=== PATIENT | male | born 1965 | race Caucasian/White ===

== ENCOUNTER 2018-12-26 20:06 | Emergency (ER) | payer MEDICAID, SELFPAY ==
--- NOTE | 2018-12-26 20:10 | ED.GENADUL_ITS ---
Discharge Plan Disposition Patient Disposition: HOME Condition: Good Discharge Details Chief Complaint: DentalOral Clinical Impression: Dental infection Primary Care Provider: Asad El ED Provider: Jose Rosas Meds and New Rx's Prescriptions: New amoxicillin 500 mg Capsule 500 mg PO TID Qty: 21 RF: 0 Continued Atorvastatin Calcium 10 MG tablet 10 mg PO DAILY RF: 0 ibuprofen 200 MG capsule 800 mg PO Q6H PRN RF: 0 prednisone [Deltasone] 20 MG tablet 40 mg PO DAILY RF: 0 Narcan 4 MG spray,non-aerosol 4 mg NS PRN Qty: 2 RF: 0 Metoprolol Succinate 50 MG TAB.ER.24H 50 mg PO DAILY RF: 0 methadone [Dolophine] 10 MG tablet 110 mg PO QID RF: 0 hydrochlorothiazide 25 MG tablet 25 mg PO DAILY RF: 0 amlodipine 2.5 MG tablet 2.5 mg PO DAILY RF: 0 propranolol [Inderal LA] 120 MG capsule,extended release 24 hr 240 mg PO DAILY RF: 0 Medical Marijuana PRN (Reason: Moderate Pain) RF: 0 Discharge Instructions Additional Instructions: Please follow-up with a dentist from the list we have provided to get definitive care for your teeth. Take amoxicillin 3 times a day for the next week. I am not sure your medication list is accurate. Please at least contact primary care to get an updated list and to review your medications. It would be helpful if you carried a card with your medication list and dosages. Return to emergency department if you develop inability to swallow, increased difficulty breathing, spiking fevers, facial pain and swelling. Referrals: Asad El [Primary Care Provider] - Medical Decision Making Patient with increasing dental pain over weeks to months. Percussion tenderness present over the lower incisors. Very poor dentition and gingival tissue. Will be referred out to dentistry and is given a list of area dentist. Will be started on amoxicillin 500 mg 3 times daily. He is on chronic pain medication. Return to ED for spiking fevers, increased difficulty breathing, inability to swallow, facial swelling. HPI General Mode of arrival: ambulatory . Date/Time Provider Initiated Documentation: 12/26/18 20:08 . Limitations to Documentation: no limitations . Information obtained by: patient . HPI Narrative: Patient presents to ED with lower dental pain. He has had increasing pain over the last few months. He has put off seeing a dentist. He is to the point where the pain is not tolerable and is concerned he has infection. He has not had fever. He has no difficulty breathing or swallowing. He has no facial swelling. Related Data Home Medications Medication Instructions Recorded Confirmed hydrochlorothiazide 25 mg PO DAILY 07/12/13 12/26/18 methadone [Dolophine] 110 mg PO QID 07/12/13 12/26/18 amlodipine 2.5 mg PO DAILY 12/08/13 12/26/18 propranolol [Inderal LA] 240 mg PO DAILY 12/08/13 12/26/18 Medical Marijuana PRN 12/14/13 04/12/14 Atorvastatin Calcium 10 mg PO DAILY tab-cap 02/12/18 12/26/18 Metoprolol Succinate 50 mg PO DAILY tab-cap 02/12/18 12/26/18 Narcan 4 mg NS PRN #2 spray 02/12/18 12/26/18 ibuprofen 800 mg PO Q6H PRN tab-cap 02/12/18 12/26/18 prednisone [Deltasone] 40 mg PO DAILY 02/12/18 12/26/18 amoxicillin 500 mg PO TID #21 cap 12/26/18 Previous Rx's Medication Instructions Recorded amoxicillin 500 mg PO TID #21 cap 12/26/18 Allergies Allergy/AdvReac Type Severity Reaction Status Date / Time lisinopril AdvReac Severe Swelling/Ed Unverified 12/26/18 20:25 [email or web address] Review of Systems Constitutional Denies chills and Denies fever(s) ENT Reports dental pain, Denies facial pain, Denies lip swelling, Denies neck pain, Denies throat swelling and Denies tongue swelling Musculoskeletal Denies neck pain Integumentary/Breasts Denies erythema Allergic/Immunologic Denies lip swelling, Denies throat swelling and Denies tongue swelling [facility] Medical History Chronic pain due to injury Essential hypertension History of peptic ulcer disease Surgical History Appendectomy Colonoscopy - MAC EGD - MAC Fracture, Open Treatment Rotator Cuff Repair Vasectomy Family History Other Diabetes Social History Smoking/Tobacco Use Status: Current every day Tobacco Type: cigarettes Alcohol Intake: current Alcohol Intake frequency: a few times a month Drug use: Occasionally Substance use type: marijuana Do you feel safe at home: Yes Do you feel safe in your relationship?: Yes Exam Const General: cooperative, comfortable and no acute distress Orientation: alert and oriented x3 HENMT Head: normocephalic and atraumatic Face and sinus: normal facial exam Mouth: lip normal and tongue normal Teeth and gingiva: gingiva abnormal (no discrete dental abscess) diffusely erythematous, tender and receding; without any purulent discharge, poor dentition and other (percussion tenderness front two lower incisors) Neck Neck: trachea midline, supple, no anterior neck swelling, lymphadenopathy (Shotty anterior adenopathy) and No submandibular swelling
[2018-12-26 20:11] VITALS: BP 125/79; PULSE 79; RESP 20; TEMP 37; O2SAT 98
[2018-12-26] MEDS: Amoxicillin 500 MG CAP PO (20:35)
== END 2018-12-26 20:42 | disposition home or self-care (01) ==
PROVIDERS: Emergency Provider Emergency Medicine; PCP Family Medicine
DX: K04.7 Periapical abscess without sinus (principal); I10 Essential (primary) hypertension; F17.210 Nicotine dependence, cigarettes, uncomplicated
CPT/HCPCS: 99283

== ENCOUNTER 2019-05-18 21:34 | Emergency (ER) | payer MEDICAID, SELFPAY ==
[2019-05-18 21:38] VITALS: PULSE 87; RESP 16; TEMP 37.2; O2SAT 96
[2019-05-18 21:45] VITALS: BP 123/93
--- NOTE | 2019-05-18 21:47 | ED.GENADUL_ITS ---
Discharge Plan Disposition Patient Disposition: HOME Discharge Details Chief Complaint: Orthopedic Primary Care Provider: Asad El ED Provider: Davidson Benjamin Home Meds and New Rx's Prescriptions: No Action Atorvastatin Calcium 10 MG tablet 10 mg PO DAILY RF: 0 ibuprofen 200 MG capsule 800 mg PO Q6H PRN RF: 0 prednisone [Deltasone] 20 MG tablet 40 mg PO DAILY RF: 0 Narcan 4 MG spray,non-aerosol 4 mg NS PRN Qty: 2 RF: 0 Metoprolol Succinate 50 MG TAB.ER.24H 50 mg PO DAILY RF: 0 methadone [Dolophine] 10 MG tablet 110 mg PO QID RF: 0 hydrochlorothiazide 25 MG tablet 25 mg PO DAILY RF: 0 amlodipine 2.5 MG tablet 2.5 mg PO DAILY RF: 0 propranolol [Inderal LA] 120 MG capsule,extended release 24 hr 240 mg PO DAILY RF: 0 Medical Marijuana PRN (Reason: Moderate Pain) RF: 0 amoxicillin 500 mg Capsule 500 mg PO TID Qty: 21 RF: 0 Medical Decision Making Patient presenting to the emergency department for chief complaint of right hand and forearm injury. Patient reports just prior to arrival he was upset due to an argument he had with his nephew and after his nephew left he punched a plywood wall. After striking this he noted hearing a pop in his hand along with pain and discomfort to the lateral hand and the forearm. Patient denies any other injury or trauma. Patient does report that he had had approximately 6 beers earlier in the evening. Patient is slightly intoxicated in appearance but is stable amatory and has no signs of airway distress or other concerning findings. Physical exam shows lateral ecchymosis and swelling to the fifth metacarpal along with tenderness to palpation of the third through fifth metacarpal. Patient has full range of motion of fingers, no rotation is noted of the digits, cap refill sensation and movement is otherwise appropriate to hand. Patient does have forearm tenderness as well. Plan to do radiological imaging of the hand and forearm to rule out acute fracture. Review of radiologist interpretation shows no acute fracture identified. There is some spurring at the distal radioulnar joint, better appreciated on the hand radiographs. If symptoms remain concerning, consider alternative imaging modalities. No acute fracture identified. Nondisplaced fifth metacarpal fractures can often be subtle on initial imaging. If symptoms persist, consider short-term followup imaging in 7 days or alternative imaging modalities. Given no acute fracture is noted patient placed in a universal wrist splint and given contact information to follow-up with orthopedics if not improving within the next 1 to 2 weeks. Return precautions were discussed along with icing the extremity and using [id number] pain medication as needed. After discussion of diagnosis and plan of care patient has no further needs, que stions, or concerns and states clear understanding to return to the emergency department for any worsening symptoms. HPI General Mode of arrival: ambulatory . Date/Time Provider Initiated Documentation: 05/18/19 21:36 . Limitations to Documentation: no limitations . Information obtained by: patient and RN notes reviewed . History of Present Illness 53 year old M presents to the emergency department with the chief complaint of Right hand injury, described as moderate, with intensity rated at 5. Quality is described as aching and sharp, and is localized to the right and upper extremity. Patient started experiencing this hour(s) (1) and it has been constant. Patient notes no other symptoms.. Patient did receive the following treatments prior to arrival, none Related Data Home Medications Medication Instructions Recorded Confirmed hydrochlorothiazide 25 mg PO DAILY 07/12/13 12/26/18 methadone [Dolophine] 110 mg PO QID 07/12/13 12/26/18 amlodipine 2.5 mg PO DAILY 12/08/13 12/26/18 propranolol [Inderal LA] 240 mg PO DAILY 12/08/13 12/26/18 Medical Marijuana PRN 12/14/13 04/12/14 Atorvastatin Calcium 10 mg PO DAILY tab-cap 02/12/18 12/26/18 Metoprolol Succinate 50 mg PO DAILY tab-cap 02/12/18 12/26/18 Narcan 4 mg NS PRN #2 spray 02/12/18 12/26/18 ibuprofen 800 mg PO Q6H PRN tab-cap 02/12/18 12/26/18 prednisone [Deltasone] 40 mg PO DAILY 02/12/18 12/26/18 amoxicillin 500 mg PO TID #21 cap 12/26/18 Previous Rx's Medication Instructions Recorded amoxicillin 500 mg PO TID #21 cap 12/26/18 Allergies Allergy/AdvReac Type Severity Reaction Status Date / Time lisinopril AdvReac Severe Swelling/Ed Unverified 12/26/18 20:25 [email or web address] General Stated Complaint: Orthopedic PEDRITO: 4 Review of Systems Cardiovascular Denies syncope Musculoskeletal Reports as per HPI, Denies numbness and Denies tingling Integumentary/Breasts Denies rash, Denies sores and Denies wounds Neurologic Denies syncope, Denies numbness and Denies tingling [facility] Medical History Chronic pain due to injury Essential hypertension History of peptic ulcer disease Surgical History Appendectomy Colonoscopy - MAC EGD - MAC Fracture, Open Treatment Rotator Cuff Repair Bilateral Vasectomy Family History Other Diabetes Social History Smoking/Tobacco Use Status: Current every day Tobacco Type: cigarettes Alcohol Intake: current Alcohol Intake frequency: 0-2 drinks per day Alcohol type: beer Drug use: Occasionally Substance use type: marijuana Do you feel safe at home: Yes Do you feel safe in your relationship?: Yes Exam Const General: cooperative, comfortable, no acute distress and intoxicated appearing Orientation: alert, awake and oriented x3 Resp Effort & Inspection: normal respiratory effort and able to speak in complete sentences Cardio Rate: regular rate Rhythm: regular rhythm Heart Sounds: S1 normal, S2 normal, no click, no gallops, no murmurs and no rubs Extrem Right upper extremity: elbow/forearm Details: tenderness Location: of the mid- shaft forearm; no abrasions and no lacerations, wrist Details: normal to inspection, normal ROM and normal vascular exam; no tenderness and hand Details: neuromotor exam normal, neurosensory exam normal, tendon exam normal, tenderness Location: of the dorsal hand Location: over the 3rd metacarpal, over the 4th metacarpal and over the 5th metacarpal, normal ROM of fingers and ecchymosis Location: of the dorsal hand Location: over the 5th metacarpal Course Vital Signs Temperature 37.2 C 05/18/19 21:38 Pulse 87 05/18/19 21:38 Respiratory Rate 16 05/18/19 21:38 Pulse Oximetry 96 05/18/19 21:38 Temperature 37.2 C 05/18/19 21:38 Temperature Source Skin 05/18/19 21:38 Pulse 87 05/18/19 21:38 Respiratory Rate 16 05/18/19 21:38 Respiratory Effort Non-Labored 05/18/19 21:41 Blood Pressure 123/93 H 05/18/19 21:45 Pulse Oximetry 96 05/18/19 21:38
--- NOTE | 2019-05-18 21:53 | NUR.NOTE ---
Nursing Note: pt ambulated to x-ray. steady gait noted.
--- NOTE | 2019-05-18 22:00 | DI.RAD_ITS ---
SYMPTOM/DIAGNOSIS: BLUNT TRAUMA, PAIN TO MID FOREARM AND IN FIFTH CARPAL RIGHT FOREARM: Two views. No acute fracture or dislocation is present. The soft tissues are unremarkable. IMPRESSION: No acute abnormality. RIGHT HAND: Four views. No acute fracture or dislocation is identified. No radiopaque foreign bodies are seen in the soft tissues. IMPRESSION: No acute fracture or dislocation. Follow up as clinically appropriate.
--- NOTE | 2019-05-18 22:20 | DI.VRAD_ITS ---
EXAM: XR Right Forearm EXAM DATE/TIME: 05/18/2019 9:47 PM CLINICAL HISTORY: 53 years old, male; Lower or forearm and hand; Right; Patient HX: Pain to mid forearm TECHNIQUE: Imaging protocol: XR Right forearm. Views: 2 views. COMPARISON: Right hand films from the same date. FINDINGS: Bones/joints: No acute fracture identified. There is some spurring at the distal radioulnar joint, better appreciated on the hand radiographs. Soft tissues: No unusual soft tissue calcifications. IMPRESSION: 1. No acute fracture identified. There is some spurring at the distal radioulnar joint, better appreciated on the hand radiographs. If symptoms remain concerning, consider alternative imaging modalities. Dictated and Authenticated by: Darline Adorno MD. Ordering:SUSAN Cedeño MD
--- NOTE | 2019-05-18 22:23 | DI.VRAD_ITS ---
EXAM: XR Right Hand EXAM DATE/TIME: 05/18/2019 9:47 PM CLINICAL HISTORY: 53 years old, male; Injury or trauma; Initial encounter; Blunt trauma (contusions or hematomas; Hand; Right; Injury date: 05/18/19; Injury details: Pain fifth carpal after punching hardwood TECHNIQUE: Imaging protocol: XR Right hand. Views: 3 or more views. COMPARISON: No relevant prior studies available. FINDINGS: Bones/joints: No acute fracture identified. There is some spurring at the distal radioulnar joint. Soft tissues: No unusual soft tissue calcifications. IMPRESSION: 1. No acute fracture identified. Nondisplaced fifth metacarpal fractures can often be subtle on initial imaging. If symptoms persist, consider short-term followup imaging in 7 days or alternative imaging modalities. 2. Other findings/details as above. Dictated and Authenticated by: Darline Adorno MD. Ordering:SUSAN Cedeño MD
[2019-05-18 22:30] VITALS: BP 108/70; PULSE 72; RESP 16; O2SAT 98
--- NOTE | 2019-05-18 22:36 | NUR.NOTE ---
Nursing Note: RCT to transport patient home.
== END 2019-05-18 22:33 | disposition home or self-care (01) ==
PROVIDERS: Emergency Provider Nurse Practitioner Family; PCP Family Medicine
DX: S60.221A Contusion of right hand, initial encounter (principal); M79.631 Pain in right forearm; W22.01XA Walked into wall, initial encounter; I10 Essential (primary) hypertension
CPT/HCPCS: 29125; 99284; 73090; 73130; 99283; L3908

== ENCOUNTER 2021-04-03 10:38 | Emergency (ER) | payer MEDICAID, SELFPAY ==
[2021-04-03 10:45] VITALS: BP 126/78; PULSE 90; RESP 20; O2SAT 98
== END 2021-04-03 11:10 ==
LOC: ER 20:18
PROVIDERS: PCP Family Medicine
DX: Z53.21 Procedure and treatment not carried out due to patient leaving prior to being seen by health care provider (principal)

== ENCOUNTER 2021-04-04 08:57 | Emergency (ER) | payer MEDICAID, SELFPAY ==
[2021-04-04 09:04] VITALS: BP 143/83; PULSE 89; RESP 18; TEMP 36.3; O2SAT 96
--- NOTE | 2021-04-04 09:15 | RT.EKG_ITS ---
APPROVED REPORT Exam: Resting ECG Reason for Exam: shortness of breath Patient Location: E HR:75 bpm ECG Measurements Heart Rate 75 AXIS MD 230 P 66 QRSd 93 QRS 12 QT 387 T 34 QTc 432 Conclusion Sinus rhythm...normal P axis, V-rate 60- 99 Prolonged MD interval...MD >210, V-rate 50- 90 Low voltage, extremity leads...all extremity leads <0.5mV Sinus. No STEMI. I have reviewed and interpreted ECG and agree with software generated interpretation.
[2021-04-04] MEDS: Albuterol/Ipratropium 3 ML UPD VIAL UPD (09:37)
[2021-04-04] MEDS: Normal Saline 1,000 ML 1000 ML IV (09:37)
[2021-04-04 09:38] LABS: Abs Immature Grans 0.04 10^3/uL (0.0-0.06); Absolute Basophil Count 0.09 10^3/uL (0.0-0.2); Absolute Eosinophil Count 0.15 10^3/uL (0.0-0.7); Absolute Lymphocyte Count 0.95 10^3/uL (1.2-3.4); Absolute Monocyte Count 0.73 10^3/uL (0.1-0.8); Basophils % 1.1; Eosinophils % 1.8; HGB 15.3 g/dL (13.5-17.5); Immature Grans % 0.5; Lymphocytes % 11.4; MCH 31.2 pg (27.0-33.0); MCV 91.6 fL (80-95); MPV 9.6 fL (8.0-11.0); Monocytes % 8.7; Neutrophils % 76.5; Nucleated RBC 0 %; Platelet Count 194 10^3/uL (130-400); RBC 4.91 10^6/uL (4.36-5.78); RDW 12.3 % (11.8-14.1); RDW-SD 41.3 fL; WBC 8.36 10^3/uL (4.4-10.8)
[2021-04-04 10:01] LABS: ALT 112 U/L (16-63); AST 128 U/L (15-37); Albumin 3.9 g/dL (3.4-5.0); Alkaline Phosphatase 104 U/L (46-116); BUN 4 mg/dL (7-18); Bilirubin, Total 0.6 mg/dL (0.2-1.0); CREATININE 0.9 mg/dL (0.70-1.30); Calcium 8.9 mg/dL (8.5-10.1); Chloride 95 mmol/L (98-107); Glucose 318 mg/dL (74-106); Lipase 125 U/L (73-393); NT-proBNP 59 pg/mL (<300); Sodium 133 mmol/L (136-145); Total Protein 7.9 g/dL (6.4-8.2)
[2021-04-04 10:02] LABS: Troponin I < 0.05 ng/mL (<0.06)
[2021-04-04] MEDS: Normal Saline - Diluent 50 ML VIAL IV (10:25)
[2021-04-04] MEDS: Omnipaque 350 MG/ML 50 ML BTL IJ (10:43)
--- NOTE | 2021-04-04 10:43 | ED.GENADUL_ITS ---
Discharge Plan Disposition Patient Disposition: HOME Condition: Serious Discharge Details Clinical Impression: Diabetes, Lymphadenopathy Primary Care Provider: Asad El ED Provider: Laila Hernández Home Meds and New Rx's Prescriptions: New Combivent Respimat 20-100 mcg/actuation mist 1 puff inhalation Q6H Qty: 4 RF: 0 metformin 500 mg tablet extended release 24hr 500 mg PO BID Qty: 30 RF: 0 Continued Atorvastatin Calcium 10 MG tablet 10 mg PO DAILY RF: 0 Narcan 4 MG spray,non-aerosol 4 mg NS PRN Qty: 2 RF: 0 metoprolol succinate 50 mg tablet extended release 24 hr 50 mg PO DAILY RF: 0 methadone 10 mg tablet 10 mg PO QID RF: 0 amlodipine 10 mg tablet 10 mg PO DAILY RF: 0 losartan 25 mg tablet 25 mg PO DAILY RF: 0 hydrochlorothiazide 25 mg tablet 25 mg PO DAILY RF: 0 albuterol sulfate [ProAir HFA] 90 mcg/actuation HFA aerosol inhaler 2 inh INHALATION QID PRNRF: 0 Discharge Instructions Instructions: COPD (Chronic Obstructive Pulmonary Disease) (ED), Diabetes and Nutrition (ED) Additional Instructions: Please take your Metformin in 48 hours begin this medication Lymphoma you will need to follow-up with your primary care physician tomorrow, it is essential that you call them as you will need very close outpatient follow-up and likely biopsy to determine what is causing your lymph nodes to be enlarged It also looks like your diabetes has progressed, I have prescribed Metformin, this will likely give you some diarrhea, do not be alarmed You are leaving prior to me speaking with your primary care physician and possibly oncology for close outpatient follow-up, I will attempt to call you later once I have spoken with your doctor and need contact with the appropriate resources Please return immediately should you have new or worsening complaints Please watch your diet and the sugar content in your foods as this can increase your blood sugar I have prescribed Combivent and replacement of your albuterol inhaler, you may use this for shortness of breath I encourage you to talk to your doctor regarding your worsening shortness of breath, you may need to go on a steroid inhaler Medical Decision Making Patient is alert and oriented, blood glucose is elevated without obvious evidence of diabetic ketoacidosis although patient does have a gap of 18 His electrolytes are stable He does have elevated LFTs, he did not grossly changed from prior, his lipase was within normal limits, there is no leukocytosis CT neck, chest, abdomen, pelvis ordered given exam and reported complaints and there is no obvious finding in the neck HPI patient results, this was discussed with Dr. Hayes, radiologist He also reviewed patient's CT abdomen and pelvis. Patient does have some stranding around the gallbladder without obvious cholecystitis Generalized retroperitoneal lymphadenopathy, concerning for lymphoma per radiology, I discussed these findings with the patient, he is refusing to stay for surgical consultation or to wait for his PCP to call back, I did call Dr. El, patient's PCP and he has been made aware regarding all of these findings, he asked that I order an LDH and states that he will get patient in for an acute visit, patient is aware regarding the severity of his presentation He is leaving prior to discussion with his primary care physician and surgical consultation HPI General Mode of arrival: ambulatory . Date/Time Provider Initiated Documentation: 04/04/21 08:59 . Limitations to Documentation: no limitations . Information obtained by: patient . HPI Narrative: This 55-year-old gentleman with history of chronic pain, hypertension, hyperlipidemia presents with report of weight loss, night sweats, lymph nodes that are enlarged with possible mass at right neck. He denies any chest pain or shortness of breath at this time. He states he has been getting short of breath with exertion which has been going on for the past year. He maintains continual tobacco use. He denies any calf pain or swelling. He denies prior history of coagulopathy. He denies any nausea or vomiting. He denies prior history of similar symptoms in the past. He states the symptoms have been going on for approximately 3 months but he has not talked to his doctor about them. He is unsure as to how much weight loss. He states his pants are just loose for him. He denies urinary symptoms. He denies polyuria, polydipsia, polyphagia. He states he has trouble drinking secondary to discomfort in his throat. Related Data Home Medications Medication Instructions Recorded Confirmed Atorvastatin Calcium 10 mg PO DAILY tab-cap 02/12/18 04/04/21 Narcan 4 mg NS PRN #2 spray 02/12/18 04/04/21 albuterol sulfate [ProAir HFA] 2 inh INHALATION QID PRN 04/04/21 04/04/21 amlodipine 10 mg PO DAILY 04/04/21 04/04/21 hydrochlorothiazide 25 mg PO DAILY 04/04/21 04/04/21 ipratropium-albuterol [Combivent 1 puff INHALATION Q6H #4 g 04/04/21 Respimat] losartan 25 mg PO DAILY 04/04/21 04/04/21 metformin 500 mg PO BID #30 tab 04/04/21 methadone 10 mg PO QID 04/04/21 04/04/21 metoprolol succinate 50 mg PO DAILY 04/04/21 04/04/21 Previous Rx's Medication Instructions Recorded ipratropium-albuterol [Combivent 1 puff INHALATION Q6H #4 g 04/04/21 Respimat] metformin 500 mg PO BID #30 tab 04/04/21 Allergies Allergy/AdvReac Type Severity Reaction Status Date / Time lisinopril AdvReac Severe Swelling/Ed Unverified 04/04/21 09:07 [email or web address] General Stated Complaint: GenMedical PEDRITO: 3 Review of Systems All systems reviewed & are unremarkable except as noted in HPI and below PFSH Medical History (Updated 04/04/21 @ 11:50 by RAYMUNDO Linares) Chronic pain due to injury Essential hypertension History of peptic ulcer disease Surgical History Appendectomy Colonoscopy - MAC EGD - MAC Fracture, Open Treatment Rotator Cuff Repair Bilateral Vasectomy Family History Other Diabetes Social History Smoking/Tobacco Use Status: Current every day Tobacco Type: cigarettes Smoking risk assessment performed?: Yes Alcohol Intake: current Alcohol Intake frequency: 0-2 drinks per day Alcohol type: beer Drug use: Occasionally Substance use type: marijuana Do you feel safe at home: Yes Do you feel safe in your relationship?: Yes Exam Const General: cooperative and no acute distress HENMT Mouth: oral mucosae normal Eyes Pupils: PERRL Neck Other: submandibular lymphadenopathy, right, no drooling Resp Effort & Inspection: normal respiratory effort Cardio Rate: regular rate Rhythm: regular rhythm GI Other: Lower abdominal tenderness to palpation, no rebound or guarding, no right upper quadrant tenderness Skin General skin exam: no rashes or lesions noted Neuro General: patient alert Extrem Other: No peripheral edema or tenderness Neurovascularly intact Course Vital Signs Vital signs: Vital Signs Temperature 36.3 C L 04/04/21 09:04 Pulse 89 04/04/21 09:04 Respiratory Rate 18 04/04/21 09:04 Blood Pressure 143/83 H 04/04/21 09:04 Pulse Oximetry 96 04/04/21 09:04 Temperature 36.3 C L 04/04/21 09:04 Temperature Source Skin 04/04/21 09:04 Pulse 89 04/04/21 09:04 Respiratory Rate 18 04/04/21 09:04 Respiratory Effort Non-Labored 04/04/21 09:56 Blood Pressure 143/83 H 04/04/21 09:04 Blood Pressure Position Sitting 04/04/21 09:04 Pulse Oximetry 96 04/04/21 09:04 Oxygen Delivery Method Room Air 04/04/21 09:04 Oxygen Flow Rate 0 04/04/21 09:04 Pain Level 3 04/04/21 09:04 Comment 04/04/21 09:04 Lab/Test Results Lab/Test Results: Laboratory Tests Range/Units 04/04/21 04/04/21 04/04/21 09:17 09:30 09:30 WBC (4.4-10.8) 10^3/uL 8.36 RBC (4.36-5.78) 10^6/uL 4.91 Hgb (13.5-17.5) g/dL 15.3 Hct (40.0-50.0) % 45.0 MCV (80-95) fL 91.6 MCH (27.0-33.0) pg 31.2 MCHC (32.0-36.0) % 34.0 RDW (11.8-14.1) % 12.3 Plt Count (130-400) 10^3/uL 194 MPV (8.0-11.0) fL 9.6 Immature Gran % 0.5 Neutrophils % 76.5 Lymphocytes % 11.4 Monocytes % 8.7 Eosinophils % 1.8 Basophils % 1.1 Nucleated RBC % % 0 Absolute Neutrophils (1.2-6.7) 10^3/uL 6.40 Absolute Lymphocytes (1.2-3.4) 10^3/uL 0.95 L Absolute Monocytes (0.1-0.8) 10^3/uL 0.73 Absolute Eosinophils (0.0-0.7) 10^3/uL 0.15 Absolute Basophils (0.0-0.2) 10^3/uL 0.09 Sodium Cancelled 133 L Potassium Cancelled 4.0 Chloride Cancelled 95 L Carbon Dioxide Cancelled 22.0 Anion Gap Cancelled 16.0 H BUN Cancelled 4 L Creatinine Cancelled 0.9 Estimated GFR/1.73 m2 Cancelled >= 60.00 Glucose Cancelled 318 H Calcium Cancelled 8.9 Total Bilirubin Cancelled 0.6 AST Cancelled 128 H ALT Cancelled 112 H Alkaline Phosphatase Cancelled 104 Troponin I (<0.06) ng/mL < 0.05 NT-Pro-B Natriuret Pep (<300) pg/mL 59 Total Protein Cancelled 7.9 Albumin Cancelled 3.9 Lipase Cancelled 125
--- NOTE | 2021-04-04 10:44 | DI.CT_ITS ---
Exam(s) CT NECK CHEST ABD PEL W EXAM: CT NECK CHEST ABD PEL W CLINICAL HISTORY: shortness of breath, diffuse abdominal pain, lump TECHNIQUE: COMPARISON: CT ABD PELVIS WITH CONTRAST from 06/23/2017 FINDINGS: CT SOFT TISSUES NECK WITH IV CONTRAST: Tissues of the nasopharynx are symmetrical. The uvula is midline calcifications in the both size the oropharynx-tonsilliths noted. Hypopharynx appears unremarkable. Valleculae and epiglottis unremark able. Aryepiglottic folds appear unremarkable. There is no obvious mass at the level of the vocal c ords and subglottic airway. Thyroid gland appears unremarkable. Normal size and no obvious nodules in either lobe. Parotid and submandibular glands appear unremarkable. No masses nor calcifications. Lymph nodes: There is no significant lymphadenopathy on either side of the neck. Also no supraclavic ular adenopathy evident. Incidentally noted is partially included evidence of right orbital blowout repair surgery hardware. Medial wall of right orbit also reflects prior injury. Vascular: There is calcified plaque at both carotid bifurcations. There does not appear to be a crit ical stenosis on either side at this level. Vertebral arteries are poorly opacified on this study an d difficult to evaluate. There is no thrombosis of the internal jugular veins. CT CHEST WITH IV CONTRAST: LUNGS: Some emphysematous bullae are noted posteriorly over the lower lobes. No confluent infiltrate s nor pleural effusions. There are no ominous pulmonary nodules. There are no significant focal fin dings in the trachea and mainstem bronchi. There is no bronchiectasis. Mediastinum: There is no hilar nor anterior mediastinal adenopathy. Slightly enlarged lymph nodes in the subcarinal region are noted. There is no axillary adenopathy nor significant supraclavicular ad enopathy. Visualized thyroid unremarkable. Cardiac: Heart size is normal. There is no pericardial effusion. Caliber of the thoracic aorta is w ithin normal limits. Coronary artery calcification is noted. Osseous: No fractures. No significant osseous lesions. CT ABDOMEN PELVIS WITH IV CONTRAST: The liver is hypodense implying steatosis. There are no discrete focal hepatic lesions identified. No dilatation of intrahepatic ducts. Tiny density in the gallbladder lumen measuring 2 millimeters p ossibly a calculus. No evidence of acute cholecystitis. However, there appears to be some streaking around this CBD and this CBD appears dilated to diameter of 1.4 cm. There is no obvious calculus in the lower CBD. CBD diameter at level the pancreatic head is upper normal-7 millimeters. There are no significant focal findings in the pancreas. Uncinate process retains normal triangular configurat ion. The pancreatic duct is not dilated. The spleen size is normal. No splenic lesions. The splen ic and portal veins are patent. There are no significant adrenal masses. No significant focal findi ngs in the kidneys. No calculi. No hydronephrosis nor hydroureter. The urinary bladder is distende d. There are no obvious masses nor calculi in the urinary bladder lumen. Abdominal aorta is not enlarged. There are multiple slightly prominent retroperitoneal and pre aorti c lymph nodes noted, the largest of these measuring 11 millimeters. There is no adenopathy around th e aortic bifurcation nor along the iliac chains. Shoddy lymph nodes are noted in both inguinal regio ns. Anterior abdominal wall reveals no evidence of significant hernia. There is also no evidence of ingu inal hernia. In the pelvis there are no calculi ureterovesical junctions. Urinary bladder is distended but otherw ise unremarkable. Prostate gland size is normal. Seminal vesicles unremarkable. No free fluid in t he pelvis. The appendix is difficult to identify as a separate structure here.. There is no obvious acute appendicitis. There is no evidence of acute sigmoid diverticulitis. I ileus appearing distal small bowel loops but without gross distention nor free fluid. No mesenteric adenopathy at this lev el. Osseous: No significant osseous lesions evident. IMPRESSION: 1. No significant findings in the neck 2. There are slightly enlarged lymph nodes in the subcarinal region. No other significant intra tho racic findings. No pleural effusions. 3. Hepatic steatosis. No discrete focal hepatic lesions. 4. Cholelithiasis. There is some streaking in the fat around the gallbladder and CBD and the CBD ap pears slightly prominent but without obvious radiopaque calculus nor obvious mass therein. Pancreati c duct is not dilated. Recommend ultrasound. 5. There are multiple enlarged retroperitoneal lymph nodes. Also slightly prominent pre aortic lymp h nodes. Possible lymphoma. There is no intrapelvic adenopathy. 6. Urinary bladder is distended. No other obvious abnormality of the urinary bladder evident on thi s noninfused study. Prostate gland is not enlarged. Findings discussed by phone with ER provider following completion of the study
[2021-04-04 11:11] VITALS: BP 129/68; PULSE 77; RESP 18; TEMP 36.4; O2SAT 97
[2021-04-04 13:08] LABS: LDH 173 U/L (85-227)
== END 2021-04-04 12:03 | disposition home or self-care (01) ==
PROVIDERS: Emergency Provider Physician Assistant; PCP Family Medicine
DX: R59.0 Localized enlarged lymph nodes (principal); E11.9 Type 2 diabetes mellitus without complications
CPT/HCPCS: 70491; 74177; 80053; 83690; 93005; 94640; 96360; 99284; 71260; 83615; 83880; 84484; 85025; 93010; J7620; Q9967

== ENCOUNTER 2021-04-10 10:49 | Outpatient (REF) | payer MEDICAID, SELFPAY ==
[2021-04-10 11:22] LABS: Source Nasal/Nares
[2021-04-10 13:30] LABS: C Diff PCR Negative (Negative)
[2021-04-10 16:11] LABS: COVID-19 PCR Negative (Negative)
[2021-04-11 10:32] LABS: Campylobacter PCR Negative (Negative); Salmonella PCR Negative (Negative); Shiga Toxin PCR Negative (Negative); Shigella/Enteroinvasive Ecoli Negative (Negative)
== END 2021-04-10 10:50 | disposition home or self-care (01) ==
LOC: LBN 10:49
PROVIDERS: Family Medicine; PCP Family Medicine; Visit Provider Neuromusculoskeletal Medicine & OMM
DX: R19.7 Diarrhea, unspecified (principal); R13.12 Dysphagia, oropharyngeal phase; R59.9 Enlarged lymph nodes, unspecified; Z20.822 Contact with and (suspected) exposure to COVID-19
CPT/HCPCS: 87493; 87505; 87635; 82272; 87177

== ENCOUNTER 2021-04-11 13:49 | Outpatient (CLI) | payer MEDICAID, SELFPAY ==
--- NOTE | 2021-04-11 | DI.RAD_ITS ---
Exam(s) RF MODIFIED SPEECH BA SWALLOW TECHNIQUE: Modified barium swallow was performed in conjunction with speech pathology. CONTRAST MATERIAL: Oral barium Oral water soluble contrast was administered. COMPARISON: No exams were available for comparison FINDINGS: Fluoroscopy was provided by the radiologist was present in the fluoroscopy suite for the entire proce dure. Procedure was performed by the speech therapist. Please refer to the speech therapist's report Was no aspiration on the study evident. The esophagus is not distended. IMPRESSION: No evidence of aspiration. See separate speech therapist report. RADIATION DOSE DELIVERED: stephanie Llanes= mGy
--- NOTE | 2021-04-11 13:47 | ST.MBS_ITS ---
Date of Service Date of service: 04/11/21 Time of Service: 14:00 Modified Barium Swallow Study Findings: Clinical Swallow Evaluation & Videofluoroscopic Swallowing Evaluation / Modified Barium Swallow Study (VFSE/MBSS) Speech Language Pathology Report Referring Provider: Dr Jose Ma HPI: Patient is a 55-year old male referred for CSE and VFSE/MBSS given recent onset of swallowing difficulties. PMHx: COPD history of chronic pain, hypertension, hyperlipidemia recent lymphadenopathy with weight loss, night sweats dyspnea upon exertion, dysphagia with thin liquids Previous Imaging: N/A Predisposing dysphagia risk factors: COPD Clinical signs of possible chronic dysphagia: cough with thin liquids, weight loss Precipitating dysphagia risk factors / triggering event: recent onset overt s/sx aspiration, lymphadenopathy SUBJECTIVE: Pt reports the following today: has a history of a 'herniated esophagus', has a heck of a hard time getting things down (pills and solids), sometimes liqu ids; also reports that he has a hard time after lying down, has a hard time breathing due to phlegm; reports having to swallow multiple times to get things down EAT-10: 32 (abnormal) PILL-5: 3 (Pills stick in throat) Cranial nerve exam / Oral Motor: CN V: facial sensation intact to light touch labial protrusion symmetrical labial coordination/ROM WFL Jaw excursion/lateralization intact mastication intact lingual/labial sensation intact CN VII: lateral sulcus residue absent anterior spillage not observed salivation intact CN IX/X: palatal elevation -symmetrical Vocal Quality -WFL taste -WFL per report onset of swallow - delayed (see below) pharyngeal residue -present nasopharyngeal regurgitation -none CN XII: bolus preparation/manipulation/control -WFL AP transit -WFL lingual protrusion symmetrical lingual coordination/ROM WFL lingual residue present, trace amount cleared with secondary swallow Dentition/Oral Structures/Hygiene: oral hygiene appears poor, reports having pulled own teeth recently, had last seen Dentist 5-6 years ago; currently denies oral pain and/or loose dentition Language: verbal expression/fluency, naming, repetition, and auditory compreh ension WFL Hearing: WFL Mental Status: AAOx3, recall of current events intact; highly anxious Speech: WFL Laryngeal function exam: Secretions: WFL Vocal quality: WFL MPT: DNT S/Z ratio: DNT Pitch range: WFL Cough: (volitional) perceptually WFL OBJECTIVE: Videofluoroscopic Swallow Evaluation (VFSE/MBSS) was conducted in the lateral and [id number] projections by Speech-Language Pathologist, in collaboration with Radiologist, to evaluate oropharyngeal swallow function. Anatomic view under fluoroscopy: noted prominence inferior to epiglottis during swallow tasks (see below) Standard [place] coin (watson) visible along posterior cervical spine, used for calibration+measurement during analysis PO barium contrast trials: Oral barium water soluble contrast was administered as follows: IDDSI Level 0 Varibar thin liquid (40% w/v) IDDSI Level 2 Varibar nectar thick/mildly thick liquid (40% w/v) IDDSI Level 3 Varibar thin honey/liquidised/moderately-thick (40% w/v) IDDSI Level 4 Varibar pudding/pureed/extremely thick (40% w/v) IDDSI Level 7 Regular Solid: 1/2 afia cracker coated in 3 mL Varibar pudding; 13 mm barium tablet PHYSIOLOGIC FINDINGS Oral Phase 1 Lip Closure: 0-No labial escape 2 Tongue Control: 0- Cohesive bolus between tongue to palatal seal 3 Bolus Preparation/Mastication: 1- Slowed/prolonged chewing/mashing with complete recollection 4 Bolus Transport/Lingual Motion: 0- Brisk tongue motion 5 Oral residue: 1- Trace residue lining oral structures Location: palate, tongue 6 Initiation of pharyngeal swallow: 3- Bolus head in pyriform sinus Pharyngeal Phase 7 Velar Elevation: 1- Trace column of contrast or air between soft palate and pharyngeal wall 8 Laryngeal Elevation: 2- Minimal superior movement of thyroid cartilage with minimal approximation of arytenoids to epiglottic petiole 9 Anterior Hyoid Excursion: 1- Partial anterior movement 10 Epiglottic Movement: 1- Minimal-Partial inversion 11 Laryngeal Vestibule Closure: 1- Incomplete; narrow column of air/contrast in laryngeal vestibule Penetration occurs during initial swallow onset from current bolus 12 Pharyngeal Stripping Wave: 1- Present; diminished 13 Pharyngeal Contraction: 0- Complete 14 PES/UES Openin- Partial distension and partial duration; partial obstruction of flow 15 Tongue Base Retraction: 1- Trace column of contrast between tongue base and posterior pharyngeal wall 16 Pharyngeal residue: 2- Collection of residue within or on pharyngeal structures Location: Tongue base, Pyriform sinuses, Aryepiglottic folds Lyons Pharyngeal Residue Severity Rating Scale (YPRS) (John et al, 2015) Vallecula Residue Severity II Trace 1-5% Trace coating of the mucosa Pyriform Sinus Residue Severity III Mild 5-25% Up wall to quarter full Esophageal Phase 17 Esophageal Clearance Upright Position: 2- Esophageal retention with retrograde flow below pharyngoesophageal segment/(PES/UES) NOTE: This study was performed for interpretation only of the oropharyngeal and pharyngoesophageal domains of swallowing. It is not intended to diagnose any other radiologic abnormalities or substitute for a formal esophagram study. Overall 8-Point Penetration-Aspiration Scale (PAS) (Floridalmak, et al, 1996) 1 - No material enters the airway. 2 - Material enters the airway, remains above the vocal folds, and is ejected from the airway. 3 - Material enters the airway, remains above the vocal folds, and is not ejected from the airway; visible residue remains 4 - Material enters the airway, contacts the vocal folds, and is ejected from the airway. 5 - Material enters the airway, contacts the vocal folds, and is not ejected from the airway. 6 - Material enters the airway, passes below the vocal folds, and is ejected into the larynx or out of the airway. 7 - Material enters the airway, passes below the vocal folds, and is not ejected from the trachea despite effort. 8 - Material enters the airway, passes below the vocal folds, and no effort is made to eject. Clinical Indicator(s) of Prandial/Postprandial Aspiration: N/A DIGEST Scale Rating (O'Jacques, et al, 1999) DIGEST Score: Safety Grade 1 / Efficiency Grade 1 = 1 - Overall Mild Pharyngeal Impairment (0=No Impairment, 1=Mild, 2=Moderate, 3=Severe, 4=Life Threatening) The Dynamic Imaging Grade of Swallowing Toxicity (DIGEST) Score represents a set of structured criteria primarily validated for head and neck cancer patients to grade the interaction of safety, efficiency, and overall impairment of the pharyngeal swallow, meant to assist in prioritization of targets for dysphagia treatment planning. (Michael, et al. Cancer. 2017;123(1):62-70) Note: - Above score represents swallowing events without application of compensatory techniques Trialed Compensatory Swallow Strategies & Outcome: Postures *volitional Turn/Rotation to Left- appears successful in increasing timeliness/efficiency of swallow Maneuvers 3-second Preparatory Set - unsuccessful *Secondary saliva swallow x1-2 - most successful in reducing residue Bolus Modifications Delivery/Alternating Consistencies - Wash with thin - successful Reduced Volume - successful Reduced Rate of Intake - unsuccessful Increased Viscosity - successful in enhancing coordination/efficiency of pharyngeal swallow Dysphagia Outcome and Severity Scale (GWEN) LEVEL 6 - Full PO: normal diet - Within functional limits/modified independence mildly thick liquid via cup sip: prominence noted inferior to epiglottis minimal-partial epiglottic inversion; incomplete laryngeal vestibule closure thin liquid via cup sip: prominence noted inferior to epiglottis+incomplete laryngeal vestibule closure IMPRESSIONS: Mild oropharyngeal dysphagia with esophageal involvement, likely chronic in nature, characterized by delayed pharyngeal swallow initiation, reduced velar elevation, reduced laryngeal elevation, reduced anterior hyoid excursion, minimal-partial epiglottic inversion, incomplete laryngeal vestibule closure, diminished pharyngeal stripping wave, partial distention and partial duration of UES opening, and esophageal retention with retrograde flow below UES/within cervical esophagus; dysphagia presentation partially due to what appears to be prominence located inferior to epiglottis, preventing complete epiglottic inversion, resulting in inefficient airway protection. Swallow safety is grossly preserved (no aspiration noted), however penetration is frequently observed; material enters the airway, remains above the vocal folds, and is partially ejected from the airway with occasional visible residue remaining in laryngeal vestibule and/or in pyriform sinus, cleared with multiple secondary swallows; swallow efficiency is also impaired. Patient appears to be at low risk for potential aspiration PNA, pulmonary compromise and moderate-high risk for malnutrition, low-moderate risk for dehydration given reported behaviors related to dysphagia presentation (ie, reduced po intake, weight loss). Of note, patient also describes globus and subsequent burning sensation in hypopharyngeal area, specifically after intake of pills/tablets. Diet modification, non-oral nutrition are not indicated at this time, however specialist consultation is indicated to further identify cause of oropharyngeal deficits and ensure adequate nutritional intake (ie, ENT, RD). Swallow prognosis is good-fair, given patient age and unknown etiology at this time; prognosis is also pending patient/caregiver training in risk management as outlined. Patient appears to be a good candidate for behavioral swallow rehabilitation once ENT consultation has taken place. PLAN: Diet recommendation: IDDSI Level 7-Regular/Easy to Chew Solids, 0-Thin Liquids Please see further details at [email or web address] Diet texture modification is per patient's preference; please adjust diet textures at patient's discretion & collaboration with care team. Risk Management: Behavioral reflux precautions, including upright position during + 90 mins after meals. Small bites, Small sips Alternate solids/liquids as able *May consider more viscous liquid or pre-masticated food when swallowing oral me dications/tablets/pills (only as approved by MD/Pharmacist) Multiple swallows per bolus x1-2 to encourage clearance of pharyngeal stasis/residue Control risk factors for aspiration pneumonia via (a) thorough oral hygiene & (b) maintaining physical mobility as tolerated Specialist referrals: ENT, RD Ancillary tests: May consider flexible laryngoscopy Therapy: Recommend subsequent outpatient session with SENIOR MARKETING ASSOCIATE to review results of today's exam and develop treatment/follow up plan as appropriate. Goal: TBD pending patient/caregiver interview Follow-up exam: N/A Thank you for allowing me to take part in this patient's care. Please feel free to contact me with any questions/concerns. Tiny Esqueda MA CCC-SENIOR MARKETING ASSOCIATE Speech Language Pathologist [phone] Coding CPT Codes EVALUATE SWALLOWING FUNCTION - [id number] ([id number]) MOTION FLUOROSCOPY/SWALLOW - [id number] ([id number])
[2021-04-11] MEDS: Barium Sulfate 40% W/V 1500 CPS 250 ML BTL 35 ML PO (15:11)
[2021-04-11] MEDS: Barium Sulfate 40% W/V 240 ML BTL 35 ML PO (15:12)
[2021-04-11] MEDS: Barium Sulfate 81% w/w for Oral Suspension 148 GM BTL 60 GM PO (15:13)
[2021-04-11] MEDS: Barium Sulfate Oral Paste 40% W/V 230 ML TUBE 10 ML PO (15:14)
== END 2021-04-11 14:09 ==
PROVIDERS: PCP Family Medicine; Visit Provider Speech-Language Pathologist
DX: R13.12 Dysphagia, oropharyngeal phase (principal)
CPT/HCPCS: 74221

== ENCOUNTER 2021-05-02 02:15 | Outpatient (CLI) | payer MEDICAID, SELFPAY ==
--- NOTE | 2021-05-02 08:49 | DI.US_ITS ---
APPROVED REPORT EXAM: Comprehensive 2D, Doppler, and color-flow Echocardiogram Patient Location: Out-Patient Investigative Research Specialist: Meredith Dockery RDCS (AE) Indications: Pre operative exam, Chest pain, SOB, HTN Other Information Study Quality: Adequate Conclusion Left Ventricle : The left ventricle is normal size. The left ventricular ejection fraction is within the normal range. There is normal left ventricular wall thickness. There is normal LV segmental wall motion. LVEF is 60%. Right Ventricle : The right ventricle is normal size. The right ventricular systolic function is norm al. Atria : The left atrium size is normal. The right atrium size is normal. Valves: There are no hemodynamically significant valvular lesions. Great Vessels : The aortic root is normal in size. The ascending aorta is normal in size. IVC is norm al in size and collapses >50% with inspiration. Wall motion Left Ventricle The left ventricle is normal size. The left ventricular ejection fraction is within the normal range. There is normal left ventricular wall thickness. There is normal LV segmental wall motion. There is no ventricular septal defect visualized. LVEF is 60%. Right Ventricle The right ventricle is normal size. The right ventricular systolic function is normal. Atria The left atrium size is normal. The right atrium size is normal. The interatrial septum is intact wit h no evidence for an atrial septal defect. Aortic Valve The aortic valve is normal in structure. There is no aortic valvular stenosis. No aortic regurgitatio n is present. Mitral Valve The mitral valve is normal in structure. No evidence of mitral valve stenosis. Trace mitral regurgita tion. Tricuspid Valve The tricuspid valve is normal in structure. There is no tricuspid valve stenosis. Trace tricuspid reg urgitation. Unable to assess PA pressure. Pulmonic Valve The pulmonary valve is normal in structure. There is no pulmonic valvular stenosis. There is no pulmo thalia valvular regurgitation. Great Vessels The aortic root is normal in size. The ascending aorta is normal in size. IVC is normal in size and c ollapses >50% with inspiration. Pericardium There is no pericardial effusion. 2D Dimensions IVSD d PLAX 0.87 cm M: 0.6-1.2 LV Vol A2C d MOD 80.8 mL LVPW d PLAX 0.86 cm M: 0.6 - 1.2 LV Vol A4C d MOD 93.9 mL LVID d PLAX 4.66 cm M: 4.2 - 5.8 LA vol/ BSA A2C s A-L 19.0 mL/m2 LVDs 3.00 cm M: 2.5 - 4.0 LA vol/ BSA A4C s A-L 16.9 mL/m2 Ao Root d 2.59 cm M: 3.1 - 3.7 LA Vol/ BSA Biplane s A-L 18.4 mL/m2 RA Area A4C 15.90 cm2 LA Area A4C s MOD 14.43 cm2 RA Vol/ BSA A4C s A-L 20.7 mL/m2 LA Area A2C s MOD 15.75 cm2 Ao Asc Diam d 3.36 cm M: 2.6 - 3.4 LV EF A4C MOD 62.5 % LV EF Teichholz 64.2 % LV EF A2C MOD 63.8 % LVEF ([employer]'s) 62.05 % M: 52 - 72 LV EF Biplane MOD 62.1 % LV Volume 65.58 mL M: 62 - 150 SV 54.39 mL LV Volume Index 32.62 mL/m2 M: 34 - 74 SV Index 27.00 mL/m2 LV Vol Biplane MOD 87.7 mL FS 34.95 % LV Diastology E/A Ratio 1.0 MV E Vmax 0.84 (0.4-1.3 m/s) MV A Vmax 0.85 (0.4-1.3 m/s) MV E/A Ratio 0.96 Aortic Valve LVOT Area 3.10 cm2 AoV Area Vmax 2.69 cm2 LVOT Vmax 1.32 m/s AoV Area/ BSA (Vmax) 1.34 cm2/m2 LVOT Mean Anthony. 0.79 m/s LIBERTAD Mean Anthony. 2.46 cm2 LVOT Peak Grad 7.0 mmHg LIBERTAD Mean Anthony. Index 1.22 cm2/m2 LVOT Mean Grad 3.1 mmHg LVOT VTI 0.258 m LVOT Diam s 1.95 cm AoV Vmax 1.52 m/s Velocity Ratio 0.86 AoV Mean Anthony. 1.00 m/s AoV Peak Grad 9.3 mmHg LVOT SV 79.94 mL AoV Mean Grad 4.6 mmHg AoV VTI 0.274 m AoV Area VTI 2.92 cm2 AoV Area/ BSA (VTI) 1.45 cm/m2 Mitral Valve MV DT 325 (160-240 msec) MV PHT 94 msec MV Area PHT 2.34 cm2 MV VTI 0.296 m MV VTI Annulus 0.304 m MV Area VTI 2.78 (4.0-6.0 cm2) Pulmonary Valve PV Vmax 0.99 (0.5-1.5 m/s) RVOT Peak Gr. 2.67 mmHg PV Peak Grad 4.0 mmHg RVOT Mean Gr. 1.25 mmHg PV Mean Grad 2.2 mmHg RVOT VTI 0.168 m PV VTI 0.214 m RVOT Vmax 0.82 m/s
== END 2021-05-02 02:35 ==
PROVIDERS: PCP Family Medicine; Visit Provider Surgery
DX: E11.9 Type 2 diabetes mellitus without complications (principal); J38.5 Laryngeal spasm; J44.9 Chronic obstructive pulmonary disease, unspecified; K52.9 Noninfective gastroenteritis and colitis, unspecified; K80.20 Calculus of gallbladder without cholecystitis without obstruction; M51.37 Other intervertebral disc degeneration, lumbosacral region; R06.02 Shortness of breath; R13.14 Dysphagia, pharyngoesophageal phase; R74.01 Elevation of levels of liver transaminase levels; Z01.810 Encounter for preprocedural cardiovascular examination
CPT/HCPCS: 93306

== ENCOUNTER 2021-05-02 03:06 | Outpatient (CLI) | payer MEDICAID, SELFPAY ==
[2021-05-02 12:30] LABS: Source Nasal/Nares
[2021-05-02 14:21] LABS: COVID-19 PCR Negative (Negative)
== END 2021-05-02 03:07 | disposition home or self-care (01) ==
LOC: LBO 03:07
PROVIDERS: PCP Family Medicine; Visit Provider Surgery
DX: Z20.822 Contact with and (suspected) exposure to COVID-19 (principal); Z01.818 Encounter for other preprocedural examination
CPT/HCPCS: 87635

== ENCOUNTER 2021-05-04 09:19 | Day surgery (SDC) | payer MEDICAID, SELFPAY ==
[2021-05-04] VITALS (8 sets, daily range): BP systolic 128–137; BP diastolic 81–91; PULSE 72–98; RESP 1–22; TEMP 36.4–36.7; O2SAT 97–100; BMI 27.1
[2021-05-04] MEDS: Lactated Ringers 1,000 ML 80 ML IV (10:00)
--- NOTE | 2021-05-04 10:05 | W.ANESPRE ---
General Info Date of Service Date Performed: 05/04/21 Height: 5 ft 9 in Weight: 83.574 kg Body Mass Index (BMI): 27.1 Surgical Procedure: Operation Date: 05/04/21 09:50 Proposed Procedures Side Surgeon p Colonoscopy/Gastroscopy Savannah Elliott, Meds Allergies and Home Medications Allergies Allergy/AdvReac Type Severity Reaction Status Date / Time lisinopril AdvReac Severe Swelling/Ed Verified 05/04/21 09:28 jessica Home Medication Medication Instructions Recorded Atorvastatin Calcium 10 mg PO DAILY tab-cap 02/12/18 Narcan 4 mg NS PRN #2 spray 02/12/18 albuterol sulfate [ProAir HFA] 2 inh INHALATION QID PRN 04/04/21 amlodipine 10 mg PO DAILY 04/04/21 hydrochlorothiazide 25 mg PO DAILY 04/04/21 losartan 25 mg PO DAILY 04/04/21 metformin 500 mg PO BID #30 tab 04/04/21 methadone 10 mg PO QID 04/04/21 metoprolol succinate 50 mg 50 mg PO DAILY tab 04/23/21 tablet,extended release 24 hr omeprazole 40 mg capsule,delayed 40 mg PO DAILY #30 cap 04/23/21 release bisacodyl 5 mg tablet,delayed 5 mg PO ONCE #4 tab 04/26/21 release ibuprofen 800 mg tablet 800 mg PO Q8H PRN 04/26/21 polyethylene glycol 3350 17 238 g PO ONCE #238 g 04/26/21 gram/dose oral powder Current Visit Medications: Current Medications Generic Name Dose Route Start Last Admin Trade Name Freq PRN Reason Stop Dose Admin Hyoscyamine Sulfate 0.125 mg 05/03/21 18:07 Hyoscyamine 0.125 Mg Sl/Oral/Chew SL DIRECTED PRN Ringer's Solution 1,000 mls @ 80 mls/hr 05/04/21 06:00 05/04/21 10:00 IV 06/02/21 23:59 80 mls/hr INFUSION LEO Administration IV Miscellaneous Supplies 1 each 05/04/21 06:00 Iv Access IV 06/02/21 23:59 DIRECTED LEO Ondansetron HCl 4 mg 05/03/21 18:07 Ondansetron 4 Mg/2 Ml Vial IVP Q4H PRN PRN Nausea / Vomiting Sodium Chloride 0 ml 05/04/21 06:00 Normal Saline Flush 10 Ml Syr IV 06/02/21 23:59 PRN PRN Sodium Chloride 0 ml 05/04/21 06:00 Normal Saline 10 Ml Vial IJ 06/02/21 23:59 DIRECTED PRN Sterile Water 0 ml 05/04/21 06:00 Water,Injection,Sterile 10 Ml Vial IJ 06/02/21 23:59 DIRECTED PRN PFSH Active Problems Active Problems: Problem Status Onset Code Diabetes E11.9 Lymphadenopathy R59.1 Pharyngoesophageal dysphagia R13.14 Elevation of levels of liver transaminase levels R74.01 SOB (shortness of breath) on exertion R06.02 Preop cardiovascular exam Z01.810 Abnormal barium swallow R93.3 Smoker F17.200 Screening for malignant neoplasm of prostate Z12.5 Injury of hand S69.90XA Chronic diarrhea K52.9 Night sweats 03/2021 R61 Degeneration of lumbosacral intervertebral disc M51.37 Cholelithiasis without obstruction K80.20 Infection of tooth K04.7 Chronic obstructive lung disease J44.9 Laryngeal spasm J38.5 Chronic post-traumatic headache G44.329 Chronic fatigue syndrome R53.82 Depressive disorder F32.9 Hyperlipemia E78.5 Medical History Medical History Cholelithiasis without obstruction Chronic diarrhea Chronic fatigue syndrome Chronic obstructive lung disease Chronic pain due to injury Chronic post-traumatic headache Degeneration of lumbosacral intervertebral disc Depressive disorder Encounter for medication monitoring Essential hypertension History of peptic ulcer disease Hyperlipemia Infection of tooth Injury of hand plates and screws Laryngeal spasm Night sweats (03/2021) Screening for malignant neoplasm of prostate Surgical History Surgical History Appendectomy Colonoscopy - MAC EGD - MAC Fracture, Open Treatment Rotator Cuff Repair Bilateral Vasectomy Tobacco Smoking/Tobacco Use Status: Current every day Tobacco Type: cigarettes Alcohol Alcohol Intake: current Alcohol intake frequency: 0-2 drinks per day Alcohol type: beer Substance Use Substance use: Occasionally Substance use type: marijuana Vital Signs and Lab Results Vital Signs Most Recent Vital Signs in EMR: Most Recent Vital Signs Temp Pulse Resp BP Pulse Ox 36.4 C L 98 H 18 132/89 98 05/04/21 09:38 05/04/21 09:38 05/04/21 09:38 05/04/21 09:38 05/04/21 09:38 Lab Results Blood Type / Crossmatch: No Data to Display Complete Blood Count: No Data to Display Complete Metabolic Panel: No Data to Display Liver Function Panel: No Data to Display Coagulation Panel: No Data to Display Cardiac Panel: No Data to Display Arterial Blood Gas: No Data to Display Venous Blood Gas: No Data to Display Pancreas Panel: No Data to Display Thyroid Panel: No Data to Display Infectious Disease: Coronavirus (COVID-19)(PCR) Negative (Negative) 05/02/21 09:31 05/02/21 Coronavirus 2019 Source Nasal/Nares 05/02/21 09:31 05/02/21 Blood Cultures: No Data to Display Toxicology Panel: No Data to Display Imaging and Studies Imaging and Studies EKG Summary: DATE/TIME OF SERVICE: 04/04/21 1108 Conclusion Sinus rhythm...normal P axis, V-rate 60- 99 Prolonged NC interval...NC >210, V-rate 50- 90 Low voltage, extremity leads...all extremity leads <0.5mV Echocardiogram Summary: 05/02/21: Left Ventricle : The left ventricle is normal size. The left ventricular ejection fraction is within the normal range. There is normal left ventricular wall thickness. There is normal LV segmental wall motion. LVEF is 60%. Right Ventricle : The right ventricle is normal size. The right ventricular systolic function is normal. Atria : The left atrium size is normal. The right atrium size is normal. Valves: There are no hemodynamically significant valvular lesions. Great Vessels : The aortic root is normal in size. The ascending aorta is normal in size. IVC is normal in size and collapses >50% with inspiration. Other Study Summary:: 04/11/21: Barium Swallow: IMPRESSIONS: Mild oropharyngeal dysphagia with esophageal involvement, likely chronic in nature, characterized by delayed pharyngeal swallow initiation, reduced velar elevation, reduced laryngeal elevation, reduced anterior hyoid excursion, minimal-partial epiglottic inversion, incomplete laryngeal vestibule closure, diminished pharyngeal stripping wave, partial distention and partial duration of UES opening, and esophageal retention with retrograde flow below UES/within cervical esophagus; dysphagia presentation partially due to what appears to be prominence located inferior to epiglottis, preventing complete epiglottic inversion, resulting in inefficient airway protection. Swallow safety is grossly preserved (no aspiration noted), however penetration is frequently observed; material enters the airway, remains above the vocal folds, and is partially ejected from the airway with occasional visible residue remaining in laryngeal vestibule and/or in pyriform sinus, cleared with multiple secondary swallows; swallow efficiency is also impaired. Patient appears to be at low risk for potential aspiration PNA, pulmonary compromise and moderate-high risk for malnutrition, low-moderate risk for dehydration given reported behaviors related to dysphagia presentation (ie, reduced po intake, weight loss). Of note, patient also describes globus and subsequent burning sensation in hypopharyngeal area, specifically after intake of pills/tablets. Diet modification, non-oral nutrition are not indicated at this time, however specialist consultation is indicated to further identify cause of oropharyngeal deficits and ensure adequate nutritional intake (ie, ENT, RD). Swallow prognosis is good-fair, given patient age and unknown etiology at this time; prognosis is also pending patient/caregiver training in risk management as outlined. Patient appears to be a good candidate for behavioral swallow rehabilitation once ENT consultation has taken place. Anesthesia Assessment and Plan Anesthesia History Personal History: No History of Anesthesia Complications Family History: No Family History of Anesthesia Complications Exercise Tolerance Exercise Tolerance: Metabolic Equivalents<4 Pertinent Negatives Pertinent Negatives: No Symptoms of GERD and No Major Cardiovascular Symptoms or Complaints Cardiac & Pulmonary Exam Cardiac Exam: Normal S1/S2 Heart Sounds Pulmonary Exam: Clear Bilateral Breath Sounds Airway Exam Known Difficult Airway: No Mallampati Class: 2 Mouth Opening: Normal (> 3cm) Thyromental Distance: Greater than 3 cm Neck Range of Motion: Full ROM Neck Circumference: Normal Teeth Condition: Dental Caries ASA Classification ASA Score: ASA 3 Emergency Case?: No NPO Status NPO Status: NPO Clears >2 hours, Solids >8 hours Anesthesia Plan Resuscitation Status: Full Code Anesthesia Technique: General Anesthesia Airway Planned: Endotracheal Tube Monitors Used: Standard Monitors
--- NOTE | 2021-05-04 10:13 | PDOC.DSDIS_ITS ---
Discharge Plan Disposition Patient Disposition: HOME Condition: Good Discharge Details Reason For Visit: stomach & colon scope Attending Provider: Savannah Elliott Primary Care Provider: Asad El Home Meds and New Rx's Prescriptions: New pantoprazole [Protonix] 40 mg tablet,delayed release (DR/EC) 40 mg PO DAILY Qty: 30 RF: 12 sucralfate [Carafate] 1 gram tablet 1 g PO QHS Qty: 30 RF: 12 celecoxib [Celebrex] 100 mg capsule 100 mg PO BID Qty: 60 RF: 0 Continued metoprolol succinate 50 mg tablet extended release 24 hr 50 mg PO DAILY RF: 0 Atorvastatin Calcium 10 MG tablet 10 mg PO DAILY RF: 0 Narcan 4 MG spray,non-aerosol 4 mg NS PRN Qty: 2 RF: 0 methadone 10 mg tablet 10 mg PO QID RF: 0 amlodipine 10 mg tablet 10 mg PO DAILY RF: 0 losartan 25 mg tablet 25 mg PO DAILY RF: 0 hydrochlorothiazide 25 mg tablet 25 mg PO DAILY RF: 0 albuterol sulfate [ProAir HFA] 90 mcg/actuation HFA aerosol inhaler 2 inh INHALATION QID PRNRF: 0 metformin 500 mg tablet extended release 24hr 500 mg PO BID Qty: 30 RF: 0 Discontinued ibuprofen 800 mg tablet 800 mg PO Q8H PRN (Reason: pain) RF: 0 polyethylene glycol 3350 17 gram/dose powder 238 g PO ONCE Qty: 238 RF: 0 bisacodyl [Dulcolax (bisacodyl)] 5 mg tablet,delayed release (DR/EC) 5 mg PO ONCE Qty: 4 RF: 0 omeprazole 40 mg capsule,delayed release(DR/EC) 40 mg PO DAILY Qty: 30 RF: 3 Discharge Instructions Additional Instructions: DSU Colonoscopy Post- Op Instructions Instructions for Everyone who is given Anesthesia: For your safety, please do the following for the next twenty-four (24) hours: *Do Not operate a motor vehicle (car, truck, motorcycle, etc.) *Do Not drink alcoholic beverages or use any recreational drugs for the first 24 hours or while taking pain medications. The medications in your body may have a reaction that can be dangerous. *Do Not make any important decisions or sign any important papers. Findings:gastritis hiatal hernia eosophageal nodule normal colon -The Internet went down My office will send a letter in approximately 3 weeks with the results of the biopsies from the colon and esophagus. -Note changes in medications Continue with lifestyle modifications: no alcohol, tobacco products, Aspirin or NSAID's (ibuprofen, Motrin, Naprosyn, aleve, etc), soda pop/any carbonated beverages, caffeine (including tea & chocolate), and acidic foods, (tomatoes, citrus, onions, peppermints) spicy or fried/fatty foods. Do not lie down for 30 minutes after eating, and do not eat 2 hours prior to bedtime. Avoid wearing tight fitting clothing/ belts STOP SMOKING! Follow up: pulmonary 1. No lifting over 20 pounds or strenuous activity for the first 24 hours after your procedure. After 24 hours there are no restrictions on your activity but you may feel fatigued for a few days. 2. After you arrive home you may have a light meal and return to your normal diet as you can tolerate it without feeling sick to your stomach. 3. You may have a bloated, gaseous feeling in your belly (abdomen) after a colonoscopy. Passing gas and belching will help. Walking or lying down on your left side with your knees flexed may relieve the discomfort. Call the office at [phone] (Office) or [phone] (Hospital) right away if you notice any of the following: a.Vomiting of blood or ?coffee ground stools?. b.Rectal bleeding 1Tbsp, blood clots or continuous bleeding. c.Severe belly (abdominal) pain. d.A hard distended belly (abdomen) and an inability to pass gas. 4. Please don?t expect to have a normal BM (bowel movement) for 2-3 days after your procedure. 5. If there are questions regarding the findings of your procedure, please contact your doctor 6. If you are unable to contact your doctor with a problem, contact the hospital at [phone]. 7. Continue all your regular medications unless directed otherwise. I understand the above instructions and have no questions. Signature of Patient or Adult Escort Name of Responsible Adult Escort Signature of Nurse Date/Time Activity:: see above Diet:: see above Discharge Orders Discharge Orders: Discharge Order (Routine); Ordered 05/03/21 Ordered By: Savannah Elliott DS: Diagnosis Discharge Diagnosis (1) Emphysematous bleb of lung: Status: Acute (2) Diabetes: Status: Chronic (3) Lymphadenopathy: Status: Acute (4) Pharyngoesophageal dysphagia: Status: Acute (5) Elevation of levels of liver transaminase levels: Status: Acute (6) SOB (shortness of breath) on exertion: Status: Acute (7) Smoker: Status: Acute (8) Chronic pain due to injury: Status: None (9) History of peptic ulcer disease: Status: None (10) Hiatal hernia with GERD: Status: Acute (11) Bile reflux gastritis: Status: Acute (12) Infection of tooth: Status: Acute (13) Chronic obstructive lung disease: Status: Chronic (14) Chronic post-traumatic headache: Status: Acute (15) Chronic fatigue syndrome: Status: Acute (16) Depressive disorder: Status: Chronic (17) Hyperlipemia: Status: Acute
--- NOTE | 2021-05-04 10:14 | ENDO_ITS ---
Date of service: 05/04/21 Time of Service: 10:14 Endoscopy Report DATE OF PROCEDURE: 05/04/21 PRE-OP DIAGNOSIS: weight loss/dysphasia/wt loss/smoker POST-OP DIAGNOSIS: other (bile reflux gastritis/hiatal hernia/upper esophageal nodule ) SURGEON: Savannah Elliott ANESTHESIA TYPE: General LMA/ETT ESTIMATED BLOOD LOSS: 1 PATHOLOGY: other DISPOSITION: PACU PROCEDURE DESCRIPTION: After informed consent was obtained the patient was take to the procedure room and placed in a supine position. Monitors were applied and a time out was done. The patients name, date of , procedure type, allergies to medications and metal in their body was reviewed. General anesthesia was administered per the department of anesthesia. The upper visual airways are visualized during the intubation and pictures are taken. The left sided tonsil does look generous/mildly enlarged. The vocal cords show no nodules or masses in move symmetrically. There are no masses on the arytenoid cartilage or in the retropharyngeal spaces. Obviously I am not an ENT surgeon and direct laryngoscopy should be confirmed by ENT. Bite-block was placed. He has extremely poor dentition. the gastroscope was advanced through the oropharynx which was grossly normal into the esophagus. In the upper esophagus he did have a nodule. It did appear to be adenomatous. This was biopsied. The mid esophagus was normal. The distal esophagus showed some mild esophagitis and a small hiatal hernia. There were no varices today seen.. The scope was advanced into the stomach and through the pylorus into the 3rd portion of the duodenum. The duodenum was noted to be mild duodenitis. Biopsies are taken of the duodenal bulb and the proximal jejunum. All specimens are retrieved and no bleeding is noted. bile reflux through the pylorus was observed directly. He has moderate gastritis throughout the entirety of the stomach. Most is concentrated at the antrum. Biopsies of the antrum and the greater curvature are taken. There were no ulcers. The scope was retroflexed. The cardia and fundus were noted to be normal. There very small a hiatal hernia noted. The scope was retracted back into the esophagus and biopsies were done of the GE junction to rule out Hall's. The Z line was irregular. The GE junction was at 38 cm. The scope was removed and the patient was woken up and taken back to [facility] in stable condition. Follow up: Pulmonary medicine. No overt signs of malignancy found
--- NOTE | 2021-05-04 10:14 | W.COLOREPORT ---
Colonoscopy Report Date of procedure: 05/04/21 Pre-op diagnosis general: chronic diarrhea Surgeon: Savannah Elliott Anesthesia Type: General LMA/ETT Estimated blood loss (mL): 0 Pathology: none sent Complications: None Disposition: PACU Prep: Miralax/Dulcolax Retraction Time: 9 mins Procedure Description: After informed consent was obtained the patient was taken to the procedure room and placed in a left decubitous position. Monitors were applied and a time out was done. The patients name, date of , procedure, allergies to medications and metal in their body was reviewed. The patient was then sedated. Once sedated and comfortable a rectal exam was done. External- lg external hemorrhoid. Internal exam revealed a normal sphincter tone and no palpable masses. The scope was then introduced and retrofelexed. No internal hemorrhoids were identified. The scope was then advanced to the cecum w/out difficulty. The TI and appendiceal orifice were identified. The prep was good. The scope was then slowly retracted over [9 minutes back into the rectum. There are no polyps, AVMs, diverticula, or other abnormalities visualized today. The mucosa appears pink and healthy. Random biopsies were taken in the cecum, 80, 60, charities centimeters and in the rectum. All specimens are retrieved and no bleeding is noted. The scope was removed and the patient was woken up and taken back to [facility] in stable condition. The patient tolerated the procedure well and there were no immediate complications. Follow up: The patient should follow up in 10 years unless they develop changes in bowel habits or other new gastrointestinal complaints.
[2021-05-04] MEDS: Albuterol/Ipratropium 3 ML UPD VIAL (10:18)
--- NOTE | 2021-05-04 11:10 | BOWEL_PTH ---
PATIENT: Franklin Duenas LOC: [facility] U#:[id number] AGE/SX: 55/M ROOM: RE05/04/[address]: Savannah Elliott : 1965 BED: DIS: 05/04/2021 SPEC #: [id number] RECD: 05/04/21 12:29 STATUS: PRACHI RE #: [id number] JEFFREY: 05/04/21 11:[address]: Savannah Elliott DEPT: Surgical Specimen RECD BY: Laila Whittaker ENTERED: 05/04/21 12:36 SP TYPE: Bowel OTHR DR: Asad El Tissues: 1 - BIOPSY BOWEL 2 - BIOPSY BOWEL 3 - STOMACH BIOPSY 4 - STOMACH BIOPSY 5 - ESOPHAGUS BIOPSY 6 - ESOPHAGUS BIOPSY 7 - ESOPHAGUS BIOPSY 8 - BIOPSY BOWEL 9 - BIOPSY BOWEL 10 - BIOPSY BOWEL 11 - BIOPSY BOWEL 12 - BIOPSY BOWEL Procedures: GROSS AND MICRO LEVEL 4 Comments: [id number]
--- NOTE | 2021-05-04 12:07 | W.ANESPOSTOP ---
Postoperative Evaluation Date, Time and Location Date Performed: 05/04/21 Time Performed: 12:07 Patient Location: Day Surgery Unit Vital Signs Most Recent Imported Vital Signs: Most Recent Vital Signs Temp Pulse Resp BP Pulse Ox 36.7 C 84 20 133/85 98 05/04/21 11:55 05/04/21 11:55 05/04/21 11:55 05/04/21 11:55 05/04/21 11:55 Pain Score Most Recent Pain Score: Most Recent Pain Score Pain Level 0 05/04/21 09:38 Assessment Mental Status: Awake (Alert & Oriented to Patient Baseline) Airway and Respiratory Function: Patent airway with normal (patient baseline) respiratory exam Cardiovascular Function: Hemodynamically Stable Hydration Status: Adequately Hydrated Nausea & Vomiting: No Nausea or Vomiting Pain: Pt. Denies Any Pain Peripheral Nerve Block: Patient did not receive a nerve block
== END 2021-05-04 12:45 | disposition home or self-care (01) ==
PROVIDERS: PCP Family Medicine; Visit Provider Surgery
PROC: (CPT 45380; principal; 2021-05-04 09:45)
DX: K52.9 Noninfective gastroenteritis and colitis, unspecified (principal); K21.9 Gastro-esophageal reflux disease without esophagitis; K29.70 Gastritis, unspecified, without bleeding; K44.9 Diaphragmatic hernia without obstruction or gangrene; F17.210 Nicotine dependence, cigarettes, uncomplicated; R63.4 Abnormal weight loss; K21.00 Gastro-esophageal reflux disease with esophagitis, without bleeding; K22.8 Other specified diseases of esophagus; E11.9 Type 2 diabetes mellitus without complications; K31.89 Other diseases of stomach and duodenum; K22.70 Barrett's esophagus without dysplasia
CPT/HCPCS: 45380; 43239; 88305; 94640; J2001; J2250; J2405; J7620

== ENCOUNTER 2022-05-06 20:32 | Emergency (ER) | payer MEDICAID, SELFPAY ==
[2022-05-06 20:41] VITALS: BP 113/66; PULSE 87; RESP 16; TEMP 36.6; O2SAT 97
--- NOTE | 2022-05-06 20:45 | DI.RAD_ITS ---
Exam(s) XR KNEE RT 3V AP,LAT,LULÚ EXAM: XR KNEE RT 3V AP,LAT,LULÚ CLINICAL HISTORY: fall, swelling/pain. TECHNIQUE: 2D digital imaging was performed. COMPARISON: No exams were available for comparison FINDINGS: 3 views There is soft tissue swelling anteriorly, anterior to the patella, patellar ligament, as well as ante rior to the quadriceps tendon. There is also some increased density within the intra-articular quadr iceps fat pad. No joint effusion. No fractures. No obvious degenerative changes. Bone density nor mal. No osseous lesions. Vascular calcifications noted in the popliteal artery. IMPRESSION: Soft tissue swelling as described above. No acute osseous findings. DATA REPOSITORY: RADIATION DOSE DELIVERED:
--- NOTE | 2022-05-06 20:57 | ED.GENADUL_ITS ---
Discharge Plan Disposition Patient Disposition: HOME Condition: Stable Discharge Details Clinical Impression: Traumatic ecchymosis of multiple sites of right lower extremity, Hemorrhagic prepatellar bursitis of right knee Primary Care Provider: Asad El ED Provider: Franklin Corea Home Meds and New Rx's Prescriptions: Continued metoprolol succinate 50 mg tablet extended release 24 hr 50 mg PO DAILY Label Comments: TAKE ONE TABLET BY MOUTH EVERY DAY Atorvastatin Calcium 10 MG tablet 10 mg PO DAILY naloxone [Narcan] 4 MG spray,non-aerosol 4 mg NS PRN Qty: 2 pantoprazole [Protonix] 40 mg tablet,delayed release (DR/EC) 40 mg PO DAILY Qty: 90 3RF methadone 10 mg tablet 10 mg PO QID Label Comments: TAKE ONE TABLET BY MOUTH FOUR TIMES A DAY DIRECTED. EARLIEST FILL DATE 03/19/2021. amlodipine 10 mg tablet 10 mg PO DAILY Label Comments: TAKE ONE TABLET BY MOUTH EVERY DAY losartan 25 mg tablet 25 mg PO DAILY Label Comments: TAKE ONE TABLET BY MOUTH EVERY DAY hydrochlorothiazide 25 mg tablet 25 mg PO DAILY Label Comments: TAKE ONE TABLET BY MOUTH EVERY DAY albuterol sulfate [ProAir HFA] 90 mcg/actuation HFA aerosol inhaler 2 inh INHALATION QID PRN Label Comments: INHALE 2 PUFFS BY MOUTH EVERY 4 HOURS NEEDED FOR 30 DAYS budesonide-formoterol [Symbicort] 160-4.5 mcg/actuation HFA aerosol inhaler INHALATION Label Comments: INHALE TWO PUFFS BY MOUTH TWICE A DAY Discharge Instructions Additional Instructions: An order has been placed for an ultrasound for you tomorrow. Call radiology at [phone]. You will schedule an appointment and then return to the hospital for the study. Elevate above the level of heart to reduce pain and swelling.. You may apply ice to area to reduce discomfort. Bruising may persist and keep spreading for up to another 10 days. It may begin to metabolize and turn yellow and brown. May use Dillon bandage while awake and out of bed for its compression and stabilization. Remove at nighttime Medical Decision Making 56-year-old male presents from home complaining of landing on a flexed knee 1 week ago, and now suffering from extensive bruising and swelling. He is co ncerned for broken patella or blood clot. Is not a chest pain or shortness of breath. Patient referred for x-ray without evidence of underlying fracture. Discussed with the patient home management including mild compression. He will return tomorrow for ultrasound to rule out DVT. HPI General Mode of arrival: ambulatory . Date/Time Provider Initiated Documentation: 05/06/22 20:32 . Limitations to Documentation: no limitations . Information obtained by: patient . History of Present Illness 56 year old M presents to the emergency department with the chief complaint of Right knee pain, described as moderate, Quality is described as dull and constant, and is localized to the right and lower extremity. Patient reports no radiation. Patient started experiencing this day(s) and it has been constant. Rest improves symptom(s), Movement worsens symptoms . Patient notes denies fever/chills, headaches, syncope and weakness. Patient did receive the following treatments prior to arrival, none Related Data Home Medications Medication Instructions Recorded Confirmed Atorvastatin Calcium 10 mg PO DAILY 02/12/18 05/06/22 naloxone 4 mg/actuation nasal 4 mg NS PRN #2 sprays 02/12/18 05/06/22 spray (Narcan) albuterol sulfate 90 mcg/actuation 2 inh inhalation QID PRN 04/04/21 05/06/22 aerosol inhaler (ProAir HFA) amlodipine 10 mg tablet 10 mg PO DAILY 04/04/21 05/06/22 hydrochlorothiazide 25 mg tablet 25 mg PO DAILY 04/04/21 05/06/22 losartan 25 mg tablet 25 mg PO DAILY 04/04/21 05/06/22 methadone 10 mg tablet 10 mg PO QID 04/04/21 05/06/22 metoprolol succinate 50 mg 50 mg PO DAILY 04/23/21 05/06/22 tablet,extended release 24 hr pantoprazole 40 mg tablet,delayed 40 mg PO DAILY #90 tabs 07/09/21 05/06/22 release (Protonix) budesonide-formoterol HFA 160 inh inhalation 05/06/22 mcg-4.5 mcg/actuation aerosol inhaler (Symbicort) Previous Rx's Medication Instructions Recorded pantoprazole 40 mg tablet,delayed 40 mg PO DAILY #90 tabs 07/09/21 release (Protonix) Allergies Allergy/AdvReac Type Severity Reaction Status Date / Time metformin Allergy Diarrhea Verified 05/06/22 20:45 lisinopril AdvReac Severe Swelling/Ed Verified 05/06/22 20:45 jessica General Stated Complaint: Abuse/Negl PEDRITO: 3 Review of Systems Narrative: 6 systems reviewed and otherwise negative PFSH All Active Problems (Updated 05/06/22 @ 21:04 by Franklin Corea MD) Traumatic ecchymosis of multiple sites of right lower extremity (Acute) Hemorrhagic prepatellar bursitis of right knee (Acute) Normal colonoscopy (Acute) Bile reflux gastritis (Acute) Hiatal hernia with GERD (Acute) Emphysematous bleb of lung (Acute) Diabetes (Chronic) Lymphadenopathy (Acute) Pharyngoesophageal dysphagia (Acute) Elevation of levels of liver transaminase levels (Acute) SOB (shortness of breath) on exertion (Acute) Preop cardiovascular exam (Acute) Abnormal barium swallow (Acute) Smoker (Acute) Screening for malignant neoplasm of prostate (Acute) Injury of hand (Acute) plates and screws Chronic diarrhea (Acute) Night sweats (Acute 03/2021) Degeneration of lumbosacral intervertebral disc (Acute) Cholelithiasis without obstruction (Acute) Infection of tooth (Acute) Chronic obstructive lung disease (Chronic) Laryngeal spasm (Acute) Chronic post-traumatic headache (Acute) Chronic fatigue syndrome (Acute) Depressive disorder (Chronic) Hyperlipemia (Acute) Medical History Encounter for medication monitoring Esophagitis Gastritis History of esophageal reflux Surgical History Appendectomy Colonoscopy - MAC EGD - MAC Fracture, Open Treatment History of colonoscopy (~05/04/21) with bx History of esophagogastroduodenoscopy (EGD) (~05/04/21) Rotator Cuff Repair Bilateral Vasectomy Family History Father Cirrhosis of liver Diabetes Melitus Social History Smoking/Tobacco Use Status: Current every day Tobacco Type: cigarettes Years smoked: 30 Tobacco: How many years used: 30 Smoking risk assessment performed?: Yes Alcohol Intake: current Alcohol Intake frequency: 3 or more drinks per day Alcohol type: beer Drug use: Daily Substance use type: marijuana Pets and animals: Yes Pets and animals: dog(s) Current gender identity: male Do you feel safe at home: Yes Do you feel safe in your relationship?: Yes Additional Social history: Current everyday smoker ( notes: 1/2 -1ppd ) 30+ Pack years. Exam Narrative Exam Narrative: GEN: awake, alert, oriented 3. Pleasant, well groomed, interactive. HEAD: Normocephalic, atraumatic ENT: Mucous membranes moist, oropharynx unremarkable, External ear exam unremarkable EYES: PERRL, EOMI NECK: Full ROM, no CHRISTIN, no menigismus CHEST/RESP: Nontender, clear to auscultation bilateral, no wheeze/rhonchi/rales CARDIOVASCULAR: RRR, no murmur, rub juanito. 2+ Rad pulse bilateral ABDOMEN: Soft, nontender, no mass. +Bowel sounds EXT: The right knee is tender and edematous both prepatellar and circumferentially. There is no laxity of the joint. Range of motion is intact but limited by pain. There is ecchymosis both posteriorly up to the thigh and down to the calf as well as anteriorly. Compartments are soft. Neuro: Grossly normal neurologic exam, conversant, interactive. Psych: Speech fluent, thoughts congruent, affect normal Course Vital Signs Vital signs: Vital Signs Temperature 36.6 C 05/06/22 20:41 Pulse 87 05/06/22 20:41 Respiratory Rate 16 05/06/22 20:41 Blood Pressure 113/66 05/06/22 20:41 Pulse Oximetry 97 05/06/22 20:41 Temperature 36.6 C 05/06/22 20:41 Temperature Source Temporal Artery Scan 05/06/22 20:41 Pulse 87 05/06/22 20:41 Respiratory Rate 16 05/06/22 20:41 Respiratory Effort 05/06/22 20:41 Blood Pressure 113/66 05/06/22 20:41 Blood Pressure Position Sitting 05/06/22 20:41 Pulse Oximetry 97 05/06/22 20:41 Oxygen Delivery Method Room Air 05/06/22 20:41 Oxygen Flow Rate 0 05/06/22 20:41 Pain Level 10 05/06/22 20:41
--- NOTE | 2022-05-06 21:48 | DI.VRAD_ITS ---
PROCEDURE INFORMATION: Exam: XR Right Knee Exam date and time: 05/06/2022 9:05 PM Age: 56 years old Clinical indication: Other: Fall, swelling, pain TECHNIQUE: Imaging protocol: Radiologic exam of the Right knee. Views: 3 views. COMPARISON: CR RIGHT ANKLE COMPLETE 02/09/2018 7:11 PM FINDINGS: Normal anatomic alignment and bone density. No acute fracture, dislocation, or aggressive osseous lesion. Preserved joint spaces. No joint effusions. Diffuse knee swelling. Mild to moderate vascular calcifications. IMPRESSION: Diffuse knee swelling without acute skeletal pathology. Dictated and Authenticated by: Gilson Marley MD. Ordering:FRED Reid MD
--- NOTE | 2022-05-14 13:53 | NUR.NOTE ---
Nursing Note: DI scheduling called to say that they left a message, multiple calls, no return call. US not scheduled.
== END 2022-05-06 21:49 | disposition home or self-care (01) ==
PROVIDERS: Emergency Provider Emergency Medicine; PCP Family Medicine
DX: M70.41 Prepatellar bursitis, right knee (principal); S70.11XA Contusion of right thigh, initial encounter; S80.01XA Contusion of right knee, initial encounter; S80.11XA Contusion of right lower leg, initial encounter; F17.210 Nicotine dependence, cigarettes, uncomplicated; X58.XXXA Exposure to other specified factors, initial encounter
CPT/HCPCS: 73562; 99283; 99284

== ENCOUNTER 2022-05-23 20:13 | Emergency (ER) | payer MEDICAID, SELFPAY ==
[2022-05-23] VITALS (9 sets, daily range): BP systolic 114–115; BP diastolic 64–67; PULSE 81–92; RESP 16–33; TEMP 36.4; O2SAT 96–99
--- NOTE | 2022-05-23 20:30 | RT.EKG_ITS ---
APPROVED REPORT Exam: Resting ECG Reason for Exam: chest pain, sob Patient Location: E HR:132 bpm ECG Measurements Heart Rate 132 AXIS MS 144 P 0 QRSd 114 QRS 0 QT 400 T -65 QTc 593 Conclusion Sinus tachycardia...rate> 99 Multiform ventricular premature complexes...short R-R, variable morphology Inferior infarct, age indeterminate...Q>35mS, T neg, II III aVF Prolonged QT interval...QTc >500mS Physician: no stemi, notable artifact
--- NOTE | 2022-05-23 20:45 | DI.CT_ITS ---
Exam(s) CT CHEST/ABD/PEL WO EXAM: CT CHEST/ABD/PEL WO CLINICAL HISTORY: cough, sob, abdominal distension, lower abd pain TECHNIQUE: CT examination of the chest, abdomen, and pelvis was performed without contrast administr ation. COMPARISON: CT CT NECK CHEST ABD PEL W from 04/04/2021 FINDINGS: The lungs are clear. There is no pleural effusion seen. There is no mediastinal or hilar adenopathy. No thoracic aortic aneurysm. No gross mediastinal fluid collection. No bony abnormality seen in the thorax. There is marked abdominal ascites. This was not present on prior examination of March 2021 The liver is normal appearance. Gallbladder and bile ducts are CT normal. No abnormality seen involving the spleen. Pancreas appears intact. The adrenals are unremarkable in appearance. The kidneys appear intact with no evidence of hydroneph rosis or nephrolithiasis. Abdominal aorta and major visceral branches appear intact by noncontrast criteria. No significant abdominal wall hernia seen. No significant abdominal or pelvic adenopathy. No focal bowel pathology. No evidence of appendicitis or diverticulitis. IMPRESSION: Marked abdominal ascites, otherwise no specific findings.. RADIATION DOSE DELIVERED: 1,255.44mGy.cm Total DLP 1,255.44mGy.cm Total DLP !Error CTDIvol DATA REPOSITORY: All CT scans at this facility are submitted to the National Radiology Data Registry (NRDR) Dose Index Registry (DIR) with the [employer] ([employer]). RADIATION OPTIMIZATION: All CT scans at this facility use at least one of these dose optimization te chniques: automated exposure control; mA and/or kV adjustment per patient size (includes targeted exa ms where dose is matched to clinical indication); or iterative reconstruction.
[2022-05-23 21:05] LABS: Abs Immature Grans 0.05 10^3/uL (0.0-0.06); Absolute Basophil Count 0.06 10^3/uL (0.0-0.2); Absolute Eosinophil Count 0.52 10^3/uL (0.0-0.7); Absolute Lymphocyte Count 2.25 10^3/uL (1.2-3.4); Absolute Monocyte Count 0.99 10^3/uL (0.1-0.8); Absolute Neutrophil Count 7.38 10^3/uL (1.2-6.7); Basophils % 0.5; Eosinophils % 4.6; HCT 38.8 % (40.0-50.0); Immature Grans % 0.4; MCH 33.8 pg (27.0-33.0); MCHC 36.1 % (32.0-36.0); MCV 94 fL (80-95); MPV 9.2 fL (8.0-11.0); Monocytes % 8.8; Neutrophils % 65.7; Platelet Count 236 10^3/uL (130-400); RBC 4.14 10^6/uL (4.36-5.78); RDW 11.4 % (11.8-14.1); RDW-SD 38.9 fL; WBC 11.23 10^3/uL (4.4-10.8)
[2022-05-23 21:28] LABS: INR 1.4 (0.9-1.1); PTT Activated 29.9 sec (21.0-27.5); Prothrombin Time 14.2 sec (9.3-11.0)
[2022-05-23 21:31] LABS: ETHANOL BLOOD 219.5 mg/dL (<10); NT-proBNP 109 pg/mL (<300); Troponin I < 50 ng/L (<or=60)
[2022-05-23 21:47] LABS: ALT 48 U/L (16-63); AST 78 U/L (15-37); Albumin 3.4 g/dL (3.4-5.0); Alkaline Phosphatase 84 U/L (46-116); Anion Gap 13.5 mmol/L (3-11); BUN 5 mg/dL (7-18); Bilirubin, Total 1.5 mg/dL (0.2-1.0); CO2 23.5 mmol/L (21.0-32.0); CREATININE 0.6 mg/dL (0.70-1.30); Calcium 8.3 mg/dL (8.5-10.1); Chloride 85 mmol/L (98-107); Estimated GFR 113.29 (mL/min/1.73m2); Glucose 141 mg/dL (74-106); Potassium 3.2 mmol/L (3.5-5.1); Total Protein 7.4 g/dL (6.4-8.2)
[2022-05-23 21:50] LABS: Sodium 122 mmol/L (136-145)
[2022-05-23] MEDS: Albuterol/Ipratropium 3 ML UPD VIAL UPD (21:52)
--- NOTE | 2022-05-23 22:01 | ED.GENADUL_ITS ---
Discharge Plan Disposition Patient Disposition: [facility] INPATIENT Condition: Improving Discharge Details Chief Complaint: SOB Clinical Impression: Acute hyponatremia, Acute hypokalemia, Hypomagnesemia, Abdominal ascites, Alcoholism, Weakness Primary Care Provider: Asad El ED Provider: Jose Francisco Talavera Home Meds and New Rx's Prescriptions: No Action metoprolol succinate 50 mg tablet extended release 24 hr 50 mg PO DAILY Label Comments: TAKE ONE TABLET BY MOUTH EVERY DAY Atorvastatin Calcium 10 MG tablet 10 mg PO DAILY naloxone [Narcan] 4 MG spray,non-aerosol 4 mg NS PRN Qty: 2 pantoprazole [Protonix] 40 mg tablet,delayed release (DR/EC) 40 mg PO DAILY Qty: 90 3RF methadone 10 mg tablet 10 mg PO QID Label Comments: TAKE ONE TABLET BY MOUTH FOUR TIMES A DAY DIRECTED. EARLIEST FILL DATE 03/19/2021. amlodipine 10 mg tablet 10 mg PO DAILY Label Comments: TAKE ONE TABLET BY MOUTH EVERY DAY losartan 25 mg tablet 25 mg PO DAILY Label Comments: TAKE ONE TABLET BY MOUTH EVERY DAY hydrochlorothiazide 25 mg tablet 25 mg PO DAILY Label Comments: TAKE ONE TABLET BY MOUTH EVERY DAY albuterol sulfate [ProAir HFA] 90 mcg/actuation HFA aerosol inhaler 2 inh INHALATION QID PRN Label Comments: INHALE 2 PUFFS BY MOUTH EVERY 4 HOURS NEEDED FOR 30 DAYS budesonide-formoterol [Symbicort] 160-4.5 mcg/actuation HFA aerosol inhaler INHALATION Label Comments: INHALE TWO PUFFS BY MOUTH TWICE A DAY Medical Decision Making 56-year-old male with a past medical history of lymphoma, diabetes mellitus, peptic ulcer disease, high cholesterol, COPD and tobacco use, gastritis, who presents today for shortness of breath and abdominal bloating. Patient states that over the last few months he has had increased enlargement of his abdomen, with bloating. He drinks at the least a few beers a day. Family suggest that this number is actually quite higher. As his stomach is increased in size and his bloating is increased he has also had associated shortness of breath. He admits to mild generalized achiness in his stomach. He denies any focal tenderness though. He does admit to a mild cough but no fever. He does admit to occasional black stool. He denies any other complaints at this time. He denies any vomiting. He denies any numbness or tingling. Exam demonstrates mild wheezes the patient's lung exam, unremarkable EKG to suggest ACS, notable bloating of his abdomen likely secondary to ascites. Notable fluid noted on bedside ultrasound. Differential is highest for alcoholic ascites causing his abdominal pain and shortness of breath. We will g nelsy a breathing treatment for his likely COPD. Get a CT scan to evaluate for tumor or mass, but otherwise plan to perform paracentesis if his coagulation factors are reasonable and his platelet count is normal. We will evaluate for electrolyte abnormality, monitor closely and reassess. 11:03 PM Laboratory work-up has returned, patient demonstrates stable hemoglobin at 14, platelets are normal. INR minimally elevated at 1.4, PT PTT minimally elevated at 14.2 and 29.9. Patient is still requesting paracentesis. Electrolytes demonstrate a notably low sodium of 122, hypokalemia of 3.2, chloride of 85, stable creatinine. Bili is elevated at 1.5, however transaminases are relatively stable. No right upper quadrant tenderness on exam. Troponin normal, proBNP normal suggesting no elevation in cardiac strain. Patient was initially stating that whenever he laid back he was short of breath, but now I suspected secondary from his notable ascites. Alcohol is 219. CT scan shows no evidence of acute process. No pneumonia, moderate ascites in the abdomen. Paracentesis risks and benefits were discussed, patient elected for the procedure. Slightly greater than 3 L of fluid were taken off. No bleeding, purulent material, or cloudy fluid was noted. Symptoms are not consistent with spontaneous bacterial peritonitis. Patient tolerated procedure well. He feels much improved. Patient's magnesium potassium and sodium are being slowly corrected. I did discuss admission with the patient and he has requested for the opportunity to go out and smoke and think about it. We will doug him this opportunity while we continue to slowly correct his electrolytes. Since he has no neurologic deficits, no evidence of seizure, I do not see an emergent indication for hypertonic saline administration at this time. We will slowly correct to prevent demyelination, by giving 125 of normal saline at this time. We will give the patient 10 mEq of IV potassium, 40 mEq of oral potassium, 2 g of magnesium. 11:54 PM Discussed the case with the hospitalist Dr. El, he agrees with the assessment and plan. I have extensively reviewed the treatment plan with the patient. I have addressed all patient concerns at this time. I have also discussed the plan with the admitting physician and they agree with the current assessment and plan and have agreed to assume responsibility for the patient. All parties demonstrate verbal understanding and agreement with our assessment and plan at this time. The documentation in this chart was dictated using [employer] dictation software. Please excuse any dictation errors. FINDINGS: Lungs: No consolidation. No ground-glass opacity. Lung nodules: No suspicious pulmonary nodule. Pleural spaces: No pneumothorax. No pleural effusion. Heart: Mild coronary artery calcification. Lymph nodes: No mediastinal, hilar or axillary adenopathy. Vasculature: Atherosclerotic change in a nonaneurysmal aorta. Intraperitoneal space: See below. Bones/joints: No significant bony or joint space abnormality. Soft tissues: Minimal gynecomastia. IMPRESSION: No acute findings. No pneumonia. FINDINGS: Lungs: Lung bases are unremarkable. Liver: Hepatic steatosis. Liver has a smooth contour. Gallbladder and bile ducts: No calcified stones. No definite gallbladder wall thickening or biliary dilatation. Pancreas: No mass or peripancreatic edema. Spleen: No splenomegaly. Adrenal glands: No adrenal nodule. Kidneys and ureters: No hydronephrosis. No renal or ureteral calculi. Stomach and bowel: Stomach is grossly unremarkable. No small or large bowel dilatation. No definite bowel wall thickening. Appendix: No evidence of appendicitis. Intraperitoneal space: No free intraperitoneal air. Moderate to significant abdominopelvic ascites. No omental nodularity/thickening. Vasculature: No abdominal aortic aneurysm. Lymph nodes: No significant adenopathy. Urinary bladder: No bladder stone. No definite bladder wall thickening. Reproductive: Unremarkable as visualized. Bones/joints: Degenerative disc disease most notably at L5-S1. Soft tissues: Extra-abdominal soft tissues are unremarkable. IMPRESSION: Moderate to significant abdominopelvic ascites. Thank you for allowing us to participate in the care of your patient. Dictated and Authenticated by: Franklin Tran MD 05/23/2022 10:12 PM Eastern Time ([place] & [place]) HPI General Date/Time Provider Initiated Documentation: 05/23/22 20:49 . HPI Narrative: 56-year-old male with a past medical history of lymphoma, diabetes mellitus, peptic ulcer disease, high cholesterol, COPD and tobacco use, gastritis, who presents today for shortness of breath and abdominal bloating. Patient states that over the last few months he has had increased enlargement of his abdomen, with bloating. He drinks at the least a few beers a day. Family suggest that this number is actually quite higher. As his stomach is increased in size and his bloating is increased he has also had associated shortness of breath. He admits to mild generalized achiness in his stomach. He denies any focal tenderness though. He does admit to a mild cough but no fever. He does admit to occasional black stool. He denies any other complaints at this time. He denies any vomiting. He denies any numbness or tingling. Related Data Home Medications Medication Instructions Recorded Confirmed Atorvastatin Calcium 10 mg PO DAILY 02/12/18 05/06/22 naloxone 4 mg/actuation nasal 4 mg NS PRN #2 sprays 02/12/18 05/06/22 spray (Narcan) albuterol sulfate 90 mcg/actuation 2 inh inhalation QID PRN 04/04/21 05/06/22 aerosol inhaler (ProAir HFA) amlodipine 10 mg tablet 10 mg PO DAILY 04/04/21 05/06/22 hydrochlorothiazide 25 mg tablet 25 mg PO DAILY 04/04/21 05/06/22 losartan 25 mg tablet 25 mg PO DAILY 04/04/21 05/06/22 methadone 10 mg tablet 10 mg PO QID 04/04/21 05/06/22 metoprolol succinate 50 mg 50 mg PO DAILY 04/23/21 05/06/22 tablet,extended release 24 hr pantoprazole 40 mg tablet,delayed 40 mg PO DAILY #90 tabs 07/09/21 05/06/22 release (Protonix) budesonide-formoterol HFA 160 inh inhalation 05/06/22 mcg-4.5 mcg/actuation aerosol inhaler (Symbicort) Previous Rx's Medication Instructions Recorded pantoprazole 40 mg tablet,delayed 40 mg PO DAILY #90 tabs 07/09/21 release (Protonix) Allergies Allergy/AdvReac Type Severity Reaction Status Date / Time metformin Allergy Diarrhea Verified 05/06/22 20:45 lisinopril AdvReac Severe Swelling/Ed Verified 05/06/22 20:45 jessica General Stated Complaint: SOB PEDRITO: 2 Review of Systems All systems reviewed & are unremarkable except as noted in HPI and below PFSH All Active Problems (Updated 05/23/22 @ 23:57 by Jose Francisco Talavera DO) Traumatic ecchymosis of multiple sites of right lower extremity (Acute) Hemorrhagic prepatellar bursitis of right knee (Acute) Acute hyponatremia (Acute) Acute hypokalemia (Acute) Hypomagnesemia (Acute) Abdominal ascites (Acute) Alcoholism (Acute) Weakness (Acute) Normal colonoscopy (Acute) Bile reflux gastritis (Acute) Hiatal hernia with GERD (Acute) Emphysematous bleb of lung (Acute) Diabetes (Chronic) Lymphadenopathy (Acute) Pharyngoesophageal dysphagia (Acute) Elevation of levels of liver transaminase levels (Acute) SOB (shortness of breath) on exertion (Acute) Preop cardiovascular exam (Acute) Abnormal barium swallow (Acute) Smoker (Acute) Screening for malignant neoplasm of prostate (Acute) Injury of hand (Acute) plates and screws Chronic diarrhea (Acute) Night sweats (Acute 03/2021) Degeneration of lumbosacral intervertebral disc (Acute) Cholelithiasis without obstruction (Acute) Infection of tooth (Acute) Chronic obstructive lung disease (Chronic) Laryngeal spasm (Acute) Chronic post-traumatic headache (Acute) Chronic fatigue syndrome (Acute) Depressive disorder (Chronic) Hyperlipemia (Acute) Medical History Encounter for medication monitoring Esophagitis Gastritis History of esophageal reflux Surgical History Appendectomy Colonoscopy - MAC EGD - MAC Fracture, Open Treatment History of colonoscopy (~05/04/21) with bx History of esophagogastroduodenoscopy (EGD) (~05/04/21) Rotator Cuff Repair Bilateral Vasectomy Family History Father Cirrhosis of liver Diabetes Melitus Social History Smoking/Tobacco Use Status: Current every day Tobacco Type: cigarettes Years smoked: 30 Tobacco: How many years used: 30 Smoking risk assessment performed?: Yes Alcohol Intake: current Alcohol Intake frequency: 3 or more drinks per day Alcohol type: beer Drug use: Daily Substance use type: marijuana Pets and animals: Yes Pets and animals: dog(s) Current gender identity: male Do you feel safe at home: Yes Do you feel safe in your relationship?: Yes Exam Narrative Exam Narrative: 1.Const: Slightly cachectic elderly male 2.Eyes: PERRL, no conjunctival injection, and symmetrical lids. 3.ENT: Atraumatic external nose and ears. Moist MM. Neck: Symmetric, trachea midline, No thyromegaly. 4.CVS: +S1/S2, No murmurs or gallops. Peripheral pulses 2+ and equal in all extremities. Brisk capillary refill in all extremities. 5.RESP: Unlabored respiratory effort. Mild wheezes, no rhonchi or rales. 6.GI: Bloated, no tympany. Sinusoidal movement likely secondary to ascites. 7.MSK: Normocephalic/Atraumatic, Extremities w/o deformity or ttp No cyanosis or clubbing, Normal movement of all extremities 8.Skin: Warm, Dry. No rashes or lesions. Occasional bruises noted. 9.Neuro: administrative tech II-XII grossly intact. Sensation grossly intact, no focal neurologic deficits. 10.Psych: (AAO) x3. Appropriate mood and affect Course Vital Signs Vital signs: Vital Signs Temperature 36.4 C L 05/23/22 20:28 Pulse 86 05/23/22 20:28 Respiratory Rate 16 05/23/22 20:28 Blood Pressure 114/64 05/23/22 20:28 Pulse Oximetry 99 05/23/22 20:28 Temperature 36.4 C L 05/23/22 20:28 Temperature Source Skin 05/23/22 20:28 Pulse 92 H 05/23/22 20:46 Pulse 81 05/23/22 21:10 Respiratory Rate 19 05/23/22 21:10 Respiratory Effort 05/23/22 20:44 Respiratory Depth Shallow 05/23/22 20:42 Blood Pressure 115/67 05/23/22 20:46 Blood Pressure Mean 71 05/23/22 20:46 Blood Pressure Position Sitting 05/23/22 20:28 Pulse Oximetry 96 05/23/22 21:10 Oxygen Delivery Method Room Air 05/23/22 20:28 Oxygen Flow Rate 0 05/23/22 20:28 Pain Level 10 05/23/22 20:28 Lab/Test Results Lab/Test Results: Laboratory Tests Range/Units 05/23/22 05/23/22 05/23/22 21:00 21:00 21:00 WBC (4.4-10.8) 10^3/uL 11.23 H RBC (4.36-5.78) 10^6/uL 4.14 L Hgb (13.5-17.5) g/dL 14.0 Hct (40.0-50.0) % 38.8 L MCV (80-95) fL 94 MCH (27.0-33.0) pg 33.8 H MCHC (32.0-36.0) % 36.1 H RDW (11.8-14.1) % 11.4 L Plt Count (130-400) 10^3/uL 236 MPV (8.0-11.0) fL 9.2 Immature Gran % 0.4 Neutrophils % 65.7 Lymphocytes % 20.0 Monocytes % 8.8 Eosinophils % 4.6 Basophils % 0.5 Nucleated RBC % (0.0-0.3) % 0.0 Absolute Neutrophils (1.2-6.7) 10^3/uL 7.38 H Absolute Lymphocytes (1.2-3.4) 10^3/uL 2.25 Absolute Monocytes (0.1-0.8) 10^3/uL 0.99 H Absolute Eosinophils (0.0-0.7) 10^3/uL 0.52 Absolute Basophils (0.0-0.2) 10^3/uL 0.06 PT (9.3-11.0) sec INR (0.9-1.1) APTT (21.0-27.5) sec Sodium (136-145) mmol/L 122 L* Potassium (3.5-5.1) mmol/L 3.2 L Chloride (98-107) mmol/L 85 L Carbon Dioxide (21.0-32.0) mmol/L 23.5 Anion Gap (3-11) mmol/L 13.5 H BUN (7-18) mg/dL 5 L Creatinine (0.70-1.30) mg/dL 0.6 L Est GFR (CKD-EPI 2020) (mL/min/1.73m2) 113.29 Glucose (74-106) mg/dL 141 H Calcium (8.5-10.1) mg/dL 8.3 L Total Bilirubin (0.2-1.0) mg/dL 1.5 H AST (15-37) U/L 78 H ALT (16-63) U/L 48 Alkaline Phosphatase (46-116) U/L 84 Troponin I (<or=60) ng/L < 50 NT-Pro-B Natriuret Pep (<300) pg/mL 109 Total Protein (6.4-8.2) g/dL 7.4 Albumin (3.4-5.0) g/dL 3.4 Ethyl Alcohol (<10) mg/dL 219.5 H Range/Units 05/23/22 21:00 WBC (4.4-10.8) 10^3/uL RBC (4.36-5.78) 10^6/uL Hgb (13.5-17.5) g/dL Hct (40.0-50.0) % MCV (80-95) fL MCH (27.0-33.0) pg MCHC (32.0-36.0) % RDW (11.8-14.1) % Plt Count (130-400) 10^3/uL MPV (8.0-11.0) fL Immature Gran % Neutrophils % Lymphocytes % Monocytes % Eosinophils % Basophils % Nucleated RBC % (0.0-0.3) % Absolute Neutrophils (1.2-6.7) 10^3/uL Absolute Lymphocytes (1.2-3.4) 10^3/uL Absolute Monocytes (0.1-0.8) 10^3/uL Absolute Eosinophils (0.0-0.7) 10^3/uL Absolute Basophils (0.0-0.2) 10^3/uL PT (9.3-11.0) sec 14.2 H INR (0.9-1.1) 1.4 H APTT (21.0-27.5) sec 29.9 H Sodium (136-145) mmol/L Potassium (3.5-5.1) mmol/L Chloride (98-107) mmol/L Carbon Dioxide (21.0-32.0) mmol/L Anion Gap (3-11) mmol/L BUN (7-18) mg/dL Creatinine (0.70-1.30) mg/dL Est GFR (CKD-EPI 2020) (mL/min/1.73m2) Glucose (74-106) mg/dL Calcium (8.5-10.1) mg/dL Total Bilirubin (0.2-1.0) mg/dL AST (15-37) U/L ALT (16-63) U/L Alkaline Phosphatase (46-116) U/L Troponin I (<or=60) ng/L NT-Pro-B Natriuret Pep (<300) pg/mL Total Protein (6.4-8.2) g/dL Albumin (3.4-5.0) g/dL Ethyl Alcohol (<10) mg/dL Procedures Paracentesis Time Out Performed: Yes Indication: Ascites Procedure: therapeutic paracentesis Location: RLQ Local Anesthetic: Lidocaine 1% and with Epi Amount of anesthesia used (mL): 5 Bedside Ultrasound Used: yes, Ascites confirmed and location marked Preparation: 11 blade used to make nely in skin Amount of Fluid Obtained: 3,100 Fluid: clear Size of Needle Used: 18 Post Procedure Exam: awake, alert, normal BP, normal HR and normal SpO2 Patient Tolerated Procedure: well and no complications Complications: none PAWSS Have you Been Recently Intoxicated or Drunk Within the Last 30 days?: Unable to Obtain Have you Ever Experienced Previous Episodes of Alcohol Withdrawal?: Unable to Obtain Have you ever Experienced Withdrawal Seizures?: Unable to Obtain Have you ever Experienced Delirium Tremens(DT)s?: Unable to Obtain Have you ever undergone Alcohol Rehabilitation Treatment (i.e, inpt ot outpat ient treatment programs)?: Unable to Obtain Have you ever Experienced Blackouts?: Unable to Obtain Have you ever Combined Alcohol with other Downers within the last 90 days?: Unable to Obtain Have you ever Combined Alcohol with any other Substance of Abuse during the last 90 days?: Unable to Obtain Positive Blood Alcohol level on Presentation? [PCS.BAL]: Unable to Obtain Evidence of Increased Autonomic Activity (i.e. HR>120, tremor, sweating, agitation, nausea)?: Unable to Obtain
--- NOTE | 2022-05-23 22:12 | DI.VRAD_ITS ---
PROCEDURE INFORMATION: Exam: CT Chest Without Contrast; Diagnostic Exam date and time: 05/23/2022 9:23 PM Age: 56 years old Clinical indication: Other: Cough, SOB, abdominal distension, lower abd pain TECHNIQUE: Imaging protocol: Diagnostic computed tomography of the chest without contrast. Total images: 2317 COMPARISON: CT NECK CHEST ABD PEL W 04/04/2021 10:24 AM FINDINGS: Lungs: No consolidation. No ground-glass opacity. Lung nodules: No suspicious pulmonary nodule. Pleural spaces: No pneumothorax. No pleural effusion. Heart: Mild coronary artery calcification. Lymph nodes: No mediastinal, hilar or axillary adenopathy. Vasculature: Atherosclerotic change in a nonaneurysmal aorta. Intraperitoneal space: See below. Bones/joints: No significant bony or joint space abnormality. Soft tissues: Minimal gynecomastia. IMPRESSION: No acute findings. No pneumonia. PROCEDURE INFORMATION: Exam: CT Abdomen And Pelvis Without Contrast Exam date and time: 05/23/2022 9:23 PM Age: 56 years old Clinical indication: Other: Cough, SOB, abdominal distension, lower abd pain TECHNIQUE: Imaging protocol: Computed tomography of the abdomen and pelvis without contrast. COMPARISON: CT NECK CHEST ABD PEL W 04/04/2021 10:24 AM FINDINGS: Lungs: Lung bases are unremarkable. Liver: Hepatic steatosis. Liver has a smooth contour. Gallbladder and bile ducts: No calcified stones. No definite gallbladder wall thickening or biliary dilatation. Pancreas: No mass or peripancreatic edema. Spleen: No splenomegaly. Adrenal glands: No adrenal nodule. Kidneys and ureters: No hydronephrosis. No renal or ureteral calculi. Stomach and bowel: Stomach is grossly unremarkable. No small or large bowel dilatation. No definite bowel wall thickening. Appendix: No evidence of appendicitis. Intraperitoneal space: No free intraperitoneal air. Moderate to significant abdominopelvic ascites. No omental nodularity/thickening. Vasculature: No abdominal aortic aneurysm. Lymph nodes: No significant adenopathy. Urinary bladder: No bladder stone. No definite bladder wall thickening. Reproductive: Unremarkable as visualized. Bones/joints: Degenerative disc disease most notably at L5-S1. Soft tissues: Extra-abdominal soft tissues are unremarkable. IMPRESSION: Moderate to significant abdominopelvic ascites. Dictated and Authenticated by: Franklin Tran MD. Ordering:ANSON Felton MD
[2022-05-23] MEDS: Normal Saline 1,000 ML 150 ML IV (22:18)
[2022-05-23] MEDS: POTASSIUM CHLORIDE 10 MEQ/100 ML BAG 100 MEQ IVPB (22:18)
[2022-05-23] MEDS: Potassium Chloride 20 MEQ TABCR 40 MEQ PO (22:19)
[2022-05-23] MEDS: MAGNESIUM SULFATE 2 GM/50 ML BAG IVPB (23:00)
[2022-05-23 23:48] LABS: Source Nasal/Nares
--- NOTE | 2022-05-23 23:48 | HPE_ITS ---
Time of Service: 23:59 [facility] All Active Problems Traumatic ecchymosis of multiple sites of right lower extremity (Acute) Hemorrhagic prepatellar bursitis of right knee (Acute) Acute hyponatremia (Acute) Acute hypokalemia (Acute) Hypomagnesemia (Acute) Abdominal ascites (Acute) Alcoholism (Acute) Weakness (Acute) Normal colonoscopy (Acute) Bile reflux gastritis (Acute) Hiatal hernia with GERD (Acute) Emphysematous bleb of lung (Acute) Diabetes (Chronic) Lymphadenopathy (Acute) Pharyngoesophageal dysphagia (Acute) Elevation of levels of liver transaminase levels (Acute) SOB (shortness of breath) on exertion (Acute) Preop cardiovascular exam (Acute) Abnormal barium swallow (Acute) Smoker (Acute) Screening for malignant neoplasm of prostate (Acute) Injury of hand (Acute) plates and screws Chronic diarrhea (Acute) Night sweats (Acute 03/2021) Degeneration of lumbosacral intervertebral disc (Acute) Cholelithiasis without obstruction (Acute) Infection of tooth (Acute) Chronic obstructive lung disease (Chronic) Laryngeal spasm (Acute) Chronic post-traumatic headache (Acute) Chronic fatigue syndrome (Acute) Depressive disorder (Chronic) Hyperlipemia (Acute) Medical History Encounter for medication monitoring Esophagitis Gastritis History of esophageal reflux Surgical History Appendectomy Colonoscopy - MAC EGD - MAC Fracture, Open Treatment History of colonoscopy (~05/04/21) with bx History of esophagogastroduodenoscopy (EGD) (~05/04/21) Rotator Cuff Repair Bilateral Vasectomy Family History Father Cirrhosis of liver Diabetes Melitus Social History Smoking/Tobacco Use Status: Current every day Tobacco Type: cigarettes Years s moked: 30 Tobacco: How many years used: 30 Smoking risk assessment performed?: Yes Alcohol Intake: current Alcohol Intake frequency: 3 or more drinks per day Alcohol type: beer Drug use: Daily Substance use type: marijuana Pets and animals: Yes Pets and animals: dog(s) Current gender identity: male Do you feel safe at home: Yes Do you feel safe in your relationship?: Yes Meds Allergies and Home Medications Allergies Allergy/AdvReac Type Severity Reaction Status Date / Time metformin Allergy Diarrhea Verified 05/06/22 20:45 lisinopril AdvReac Severe Swelling/Ed Verified 05/06/22 20:45 [email or web address] Home Medications Medication Instructions Recorded Confirmed Type Atorvastatin Calcium 10 mg PO DAILY 02/12/18 05/24/22 History naloxone 4 mg/actuation nasal 4 mg NS PRN #2 sprays 02/12/18 05/24/22 History spray (Narcan) albuterol sulfate 90 mcg/actuation 2 inh inhalation QID PRN 04/04/21 05/24/22 History aerosol inhaler (ProAir HFA) amlodipine 10 mg tablet 10 mg PO DAILY 04/04/21 05/24/22 History hydrochlorothiazide 25 mg tablet 25 mg PO DAILY 04/04/21 05/24/22 History losartan 25 mg tablet 25 mg PO DAILY 04/04/21 05/24/22 History methadone 10 mg tablet 10 mg PO QID 04/04/21 05/24/22 History metoprolol succinate 50 mg 50 mg PO DAILY 04/23/21 05/24/22 History tablet,extended release 24 hr pantoprazole 40 mg tablet,delayed 40 mg PO DAILY #90 tabs 07/09/21 05/24/22 Rx release (Protonix) budesonide-formoterol HFA 160 1 inh inhalation PRN PRN Shortness 05/06/22 05/24/22 History mcg-4.5 mcg/actuation aerosol Of Breath Or Wheezing inhaler (Symbicort) Results Labs Result diagrams: 05/23/22 21:00 05/23/22 21:00 Labs: Laboratory Results - last 24 hr 05/23/22 05/23/22 05/23/22 21:00 21:00 21:00 WBC 11.23 H RBC 4.14 L Hgb 14.0 Hct 38.8 L MCV 94 MCH 33.8 H MCHC 36.1 H RDW 11.4 L Plt Count 236 MPV 9.2 Immature Gran % 0.4 Neutrophils % 65.7 Lymphocytes % 20.0 Monocytes % 8.8 Eosinophils % 4.6 Basophils % 0.5 Nucleated RBC % 0.0 Absolute Neutrophils 7.38 H Absolute Lymphocytes 2.25 Absolute Monocytes 0.99 H Absolute Eosinophils 0.52 Absolute Basophils 0.06 PT INR APTT Sodium 122 L* Potassium 3.2 L Chloride 85 L Carbon Dioxide 23.5 Anion Gap 13.5 H BUN 5 L Creatinine 0.6 L Est GFR (CKD-EPI 2020) 113.29 Glucose 141 H Calcium 8.3 L Magnesium Total Bilirubin 1.5 H AST 78 H ALT 48 Alkaline Phosphatase 84 Troponin I < 50 NT-Pro-B Natriuret Pep 109 Total Protein 7.4 Albumin 3.4 Ethyl Alcohol 219.5 H 05/23/22 05/23/22 21:00 21:00 WBC RBC Hgb Hct MCV MCH MCHC RDW Plt Count MPV Immature Gran % Neutrophils % Lymphocytes % Monocytes % Eosinophils % Basophils % Nucleated RBC % Absolute Neutrophils Absolute Lymphocytes Absolute Monocytes Absolute Eosinophils Absolute Basophils PT 14.2 H INR 1.4 H APTT 29.9 H Sodium Potassium Chloride Carbon Dioxide Anion Gap BUN Creatinine Est GFR (CKD-EPI 2020) Glucose Calcium Magnesium 1.0 L Total Bilirubin AST ALT Alkaline Phosphatase Troponin I NT-Pro-B Natriuret Pep Total Protein Albumin Ethyl Alcohol Last Vital Signs Temp 36.4 C L 05/23/22 20:28 Pulse 92 H 05/23/22 20:46 Resp 19 05/23/22 21:10 BP 115/67 05/23/22 20:46 Pulse Ox 96 05/23/22 21:10 PAWSS Have you Been Recently Intoxicated or Drunk Within the Last 30 days?: Unable to Obtain Have you Ever Experienced Previous Episodes of Alcohol Withdrawal?: Unable to Obtain Have you ever Experienced Withdrawal Seizures?: Unable to Obtain Have you ever Experienced Delirium Tremens(DT)s?: Unable to Obtain Have you ever undergone Alcohol Rehabilitation Treatment (i.e, inpt ot outpatient treatment programs)?: Unable to Obtain Have you ever Experienced Blackouts?: Unable to Obtain Have you ever Combined Alcohol with other Downers within the last 90 days?: Unable to Obtain Have you ever Combined Alcohol with any other Substance of Abuse during the last 90 days?: Unable to Obtain Positive Blood Alcohol level on Presentation? [PCS.BAL]: Unable to Obtain Evidence of Increased Autonomic Activity (i.e. HR>120, tremor, sweating, agitation, nausea)?: Unable to Obtain
--- NOTE | 2022-05-24 00:47 | NUR.NOTE ---
Pt called career orientation teacher light asking for nurse to come into room. Pt stated he wanted IV out and wanted to go home so he can smoke a cigarette. Pt informed of nicotine that was ordered per MD.Pt refused. MD notified. Pt was educated on risks of leaving AMA and verbalized understanding. IV removed. Pt left with all belongings.
--- NOTE | 2022-05-24 01:00 | W.EDPROG ---
Date of service: 05/24/22 Time of Service: 01:01 Medical Decision Making Unfortunately after the patient had been admitted to the hospitalist service, but while still in the emergency department about to go upstairs, the patient decided to leave. He was very calm and pleasant, but stated that I am a hermit, and being admitted in the hospital is not something I can do. I do not feel comfortable being admitted. I appreciate all of your help in service, but I need to go home. The patient's family member was with him. Patient is of a appropriate age to make decisions. The patient is of sound mind, appears clinically sober, and has capacity to make decisions by my clinical exam. We have provided options for treatment and discussed the risks and benefits of these options and refusing these options, including and disability specific to the patient's pathology. Patient is able to discuss the risks and benefits and alternatives of treatment and refusing treatment. We have tried to involve the patient's family or support group that was present here or by contacting them on the phone. The patient chooses to leave before evaluation and treatment is complete AGAINST MEDICAL ADVICE. The patient is able to speak clearly. There is no demonstration of any slurring of speech. There is evidence of clear decision making capacity. Patient is able to ambulate well without any difficulty. There are no signs of ataxia or stumbling motions. Discharge Plan Disposition Patient Disposition: [facility] INPATIENT Condition: Improving Discharge Details Clinical Impression: Acute hyponatremia, Acute hypokalemia, Hypomagnesemia, Abdominal ascites, Alcoholism, Weakness Primary Care Provider: Asad El ED Provider: Jose Francisco Talavera Home Meds and New Rx's Prescriptions: No Action metoprolol succinate 50 mg tablet extended release 24 hr 50 mg PO DAILY Label Comments: TAKE ONE TABLET BY MOUTH EVERY DAY Atorvastatin Calcium 10 MG tablet 10 mg PO DAILY naloxone [Narcan] 4 MG spray,non-aerosol 4 mg NS PRN Qty: 2 pantoprazole [Protonix] 40 mg tablet,delayed release (DR/EC) 40 mg PO DAILY Qty: 90 3RF methadone 10 mg tablet 10 mg PO QID Label Comments: TAKE ONE TABLET BY MOUTH FOUR TIMES A DAY DIRECTED. EARLIEST FILL DATE 03/19/2021. amlodipine 10 mg tablet 10 mg PO DAILY Label Comments: TAKE ONE TABLET BY MOUTH EVERY DAY losartan 25 mg tablet 25 mg PO DAILY Label Comments: TAKE ONE TABLET BY MOUTH EVERY DAY hydrochlorothiazide 25 mg tablet 25 mg PO DAILY Label Comments: TAKE ONE TABLET BY MOUTH EVERY DAY albuterol sulfate [ProAir HFA] 90 mcg/actuation HFA aerosol inhaler 2 inh INHALATION QID PRN Label Comments: INHALE 2 PUFFS BY MOUTH EVERY 4 HOURS NEEDED FOR 30 DAYS budesonide-formoterol [Symbicort] 160-4.5 mcg/actuation HFA aerosol inhaler 1 inh INHALATION PRN PRN (Reason: Shortness Of Breath Or Wheezing) Label Comments: INHALE TWO PUFFS BY MOUTH TWICE A DAY
[2022-05-24 16:54] LABS: COVID-19 PCR Negative (Negative)
== END 2022-05-24 00:50 | disposition short-term general hospital (02) ==
PROVIDERS: Emergency Provider Student in an Organized Health Care Education/Training Program; PCP Family Medicine
DX: R18.8 Other ascites (principal); E87.1 Hypo-osmolality and hyponatremia; E87.6 Hypokalemia; E83.42 Hypomagnesemia; F10.20 Alcohol dependence, uncomplicated; Y90.7 Blood alcohol level of 200-239 mg/100 ml; J44.9 Chronic obstructive pulmonary disease, unspecified; E11.9 Type 2 diabetes mellitus without complications; F17.210 Nicotine dependence, cigarettes, uncomplicated; Z20.822 Contact with and (suspected) exposure to COVID-19
CPT/HCPCS: 49082; 71250; 80053; 87635; 93005; 94640; 96361; 96365; 96366; 99284; 74176; 80320; 83735; 83880; 84100; 84484; 85025; 85610; 85730; 93010; J3480; J7620

== ENCOUNTER 2022-06-14 20:09 | Inpatient (IN) | payer MEDICAID, SELFPAY ==
[2022-06-14 20:20] VITALS: BP 118/79; PULSE 88; RESP 18; TEMP 36.7; O2SAT 99
--- NOTE | 2022-06-14 20:45 | DI.RAD_ITS ---
Exam(s) XR CHEST 2V PA LATERAL EXAM: XR CHEST 2V PA LATERAL CLINICAL HISTORY: sob TECHNIQUE: 2D digital imaging was performed. COMPARISON: CR CHEST 2 VIEWS PA,LAT from 06/23/2017 FINDINGS: The heart is not enlarged. The lungs are clear and well expanded. No pleural effusion seen. Mediastin al contours appear intact. IMPRESSION: Normal chest. RADIATION DOSE DELIVERED: Total DLP
--- NOTE | 2022-06-14 20:45 | RT.EKG_ITS ---
APPROVED REPORT Exam: Resting ECG Reason for Exam: sob Patient Location: E HR:82 bpm ECG Measurements Heart Rate 82 AXIS [place] 242 P 61 QRSd 95 QRS 34 QT 422 T 41 QTc 495 Conclusion Sinus rhythm Prolonged [place] interval. Low voltage, extremity and precordial leads.
--- NOTE | 2022-06-14 20:58 | ED.GENADUL_ITS ---
Discharge Plan Disposition Patient Disposition: [facility] INPATIENT Condition: Stable Discharge Details Clinical Impression: Acute hyponatremia, Acute hypokalemia, Hypomagnesemia, Abdominal ascites Primary Care Provider: Asad El ED Provider: Luis Miguel Escobar Home Meds and New Rx's Prescriptions: No Action metoprolol succinate 50 mg tablet extended release 24 hr 50 mg PO DAILY Label Comments: TAKE ONE TABLET BY MOUTH EVERY DAY Atorvastatin Calcium 10 MG tablet 10 mg PO DAILY naloxone [Narcan] 4 MG spray,non-aerosol 4 mg NS PRN Qty: 2 pantoprazole [Protonix] 40 mg tablet,delayed release (DR/EC) 40 mg PO DAILY Qty: 90 3RF methadone 10 mg tablet 10 mg PO QID Label Comments: TAKE ONE TABLET BY MOUTH FOUR TIMES A DAY DIRECTED. EARLIEST FILL DATE 03/19/2021. amlodipine 10 mg tablet 10 mg PO DAILY Label Comments: TAKE ONE TABLET BY MOUTH EVERY DAY losartan 25 mg tablet 25 mg PO DAILY Label Comments: TAKE ONE TABLET BY MOUTH EVERY DAY hydrochlorothiazide 25 mg tablet 25 mg PO DAILY Label Comments: TAKE ONE TABLET BY MOUTH EVERY DAY albuterol sulfate [ProAir HFA] 90 mcg/actuation HFA aerosol inhaler 2 inh INHALATION QID PRN Label Comments: INHALE 2 PUFFS BY MOUTH EVERY 4 HOURS NEEDED FOR 30 DAYS budesonide-formoterol [Symbicort] 160-4.5 mcg/actuation HFA aerosol inhaler 1 inh INHALATION PRN PRN (Reason: Shortness Of Breath Or Wheezing) Label Comments: INHALE TWO PUFFS BY MOUTH TWICE A DAY Medical Decision Making This is a 56-year-old gentleman presenting to the ER for acute on chronic worsening ascites. Patient was seen in the ER on 05-23-22, had a work-up that included CT imaging of his abdomen and pelvis as well as a paracentesis of 3 L. Patient was to be admitted at that time and subsequently left AMA. He admits that he continues to drink, admits to 3 beers today. He appears chronically ill but vital signs are unremarkable, he appears to be compensating well. While his dyspnea at baseline as well as lying flat appears to be secondary to a scites, will obtain IV access and initiate routine screening laboratory values including a cardiac work-up. Abdomen is not consistent with SBP. At this time I do not see any clear indication for emergent paracentesis. Laboratory values reveal no evidence of leukocytosis. Hemoglobin is 13.3 hematocrit 37.0 platelet count 188. Sodium 124 potassium 3.4 anion gap 14.4 creatinine 0.7 with a GFR of 108.14. Calcium 7.4 magnesium 0.6 total bili 1.8, AST 62, ALT 37, alk phosphatase 117. Troponin less than 50. BNP 241. Albumin 36. Lipase 254. Alcohol 205. Patient continues to have multiple electrolyte abnormalities. Discussed with patient and family treatment with both oral and IV medications and admission. Patient is undecided and would like to outside to smoke. He was offered a kelly zuhair patch or cartridge but declines Patient returns to the ER and tells me he is agreeable to admission. I have written for 1 L IV fluid, 2 g magnesium IV, 40 mEq of potassium p.o., 100 mg p.o. spironolactone, and he is agreeable now to a nicotine cartridge. Depending on how the patient responds to medical therapy, he may require surgical consultation and elective paracentesis. COVID-negative. Chest x-ray unremarkable. Case discussed with Dr. El for admission. This documentation was generated using [employer] dictation system, please disregard any oddities of phrase or misspellings. Medical Records Medical records reviewed: Yes I reviewed the patient's medical records. Imaging Data Radiologic Study: Attestation: I personally reviewed and interpreted this imaging study as follows: Imaging: X-Ray Radiologist's impression: PROCEDURE INFORMATION: Exam: XR Chest Exam date and time: 06/14/2022 9:47 PM Age: 56 years old Clinical indication: Pain; Other: SOB TECHNIQUE: Imaging protocol: Radiologic exam of the chest. Views: 2 views. COMPARISON: CT CHEST/ABD/PEL WO 05/23/2022 9:23 PM FINDINGS: Lungs: No consolidation. Pleural spaces: Unremarkable. No pleural effusion. No pneumothorax. Heart/Mediastinum: Unremarkable. No cardiomegaly. Bones/joints: Unremarkable. IMPRESSION: No acute findings. Lab Data Lab results reviewed: Yes I reviewed the patient's lab results. Labs: Laboratory Tests Range/Units 06/14/22 06/14/22 06/14/22 21:11 21:15 21:15 WBC (4.4-10.8) 10^3/uL RBC (4.36-5.78) 10^6/uL Hgb (13.5-17.5) g/dL Hct (40.0-50.0) % MCV (80-95) fL MCH (27.0-33.0) pg MCHC (32.0-36.0) % RDW (11.8-14.1) % Plt Count (130-400) 10^3/uL MPV (8.0-11.0) fL Immature Gran % Neutrophils % Lymphocytes % Monocytes % Eosinophils % Basophils % Nucleated RBC % (0.0-0.3) % Absolute Neutrophils (1.2-6.7) 10^3/uL Absolute Lymphocytes (1.2-3.4) 10^3/uL Absolute Monocytes (0.1-0.8) 10^3/uL Absolute Eosinophils (0.0-0.7) 10^3/uL Absolute Basophils (0.0-0.2) 10^3/uL Sodium (136-145) mmol/L 124 L Potassium (3.5-5.1) mmol/L 3.4 L Chloride (98-107) mmol/L 86 L Carbon Dioxide (21.0-32.0) mmol/L 23.6 Anion Gap (3-11) mmol/L 14.4 H BUN (7-18) mg/dL 5 L Creatinine (0.70-1.30) mg/dL 0.7 Est GFR (CKD-EPI 2020) (mL/min/1.73m2) 108.14 Glucose (74-106) mg/dL 138 H Calcium (8.5-10.1) mg/dL 7.4 L Magnesium (1.8-2.4) mg/dL 0.6 L* Total Bilirubin (0.2-1.0) mg/dL 1.8 H AST (15-37) U/L 62 H ALT (16-63) U/L 37 Alkaline Phosphatase (46-116) U/L 117 H Troponin I (<or=60) ng/L < 50 NT-Pro-B Natriuret Pep (<300) pg/mL Total Protein (6.4-8.2) g/dL 7.3 Albumin (3.4-5.0) g/dL 3.6 Lipase (73-393) U/L 254 Ethyl Alcohol (<10) mg/dL COVID-19 Source Nasal/Nares SARS-CoV-2 (PCR) (Negative) Negative Range/Units 06/14/22 06/14/22 21:15 21:15 WBC (4.4-10.8) 10^3/uL 9.66 RBC (4.36-5.78) 10^6/uL 3.97 L Hgb (13.5-17.5) g/dL 13.3 L Hct (40.0-50.0) % 37.0 L MCV (80-95) fL 93 MCH (27.0-33.0) pg 33.5 H MCHC (32.0-36.0) % 35.9 RDW (11.8-14.1) % 11.4 L Plt Count (130-400) 10^3/uL 188 MPV (8.0-11.0) fL 10.0 Immature Gran % 0.5 Neutrophils % 70.1 Lymphocytes % 18.0 Monocytes % 8.0 Eosinophils % 3.0 Basophils % 0.4 Nucleated RBC % (0.0-0.3) % 0.0 Absolute Neutrophils (1.2-6.7) 10^3/uL 6.77 H Absolute Lymphocytes (1.2-3.4) 10^3/uL 1.74 Absolute Monocytes (0.1-0.8) 10^3/uL 0.77 Absolute Eosinophils (0.0-0.7) 10^3/uL 0.29 Absolute Basophils (0.0-0.2) 10^3/uL 0.04 Sodium (136-145) mmol/L Potassium (3.5-5.1) mmol/L Chloride (98-107) mmol/L Carbon Dioxide (21.0-32.0) mmol/L Anion Gap (3-11) mmol/L BUN (7-18) mg/dL Creatinine (0.70-1.30) mg/dL Est GFR (CKD-EPI 2020) (mL/min/1.73m2) Glucose (74-106) mg/dL Calcium (8.5-10.1) mg/dL Magnesium (1.8-2.4) mg/dL Total Bilirubin (0.2-1.0) mg/dL AST (15-37) U/L ALT (16-63) U/L Alkaline Phosphatase (46-116) U/L Troponin I (<or=60) ng/L NT-Pro-B Natriuret Pep (<300) pg/mL 241 Total Protein (6.4-8.2) g/dL Albumin (3.4-5.0) g/dL Lipase (73-393) U/L Ethyl Alcohol (<10) mg/dL 205.5 H COVID-19 Source SARS-CoV-2 (PCR) (Negative) ECG Data Attestation: I personally reviewed and interpreted this ECG (s) as follows: Interpretation: Sinus rhythm, ventricular rate 82, no STEMI HPI General Mode of arrival: ambulatory . Date/Time Provider Initiated Documentation: 06/14/22 20:10 . Limitations to Documentation: no limitations . Information obtained by: patient and family . HPI Narrative: This is a 56-year-old gentleman, past medical history of COPD, hypertension, diabetes, hyperlipidemia, current smoker, alcohol abuse, presenting to the ER for acute on chronic abdominal swelling and fluid retention. Patient states that he drank a few beers today. He tells me that he was seen in the ER recently, had fluid drained, was going to be admitted but then subsequently left. He tells me he has not seen his primary care doctor for this and because he only drinks a little and does not have hepatitis, he cannot understand why he is having the symptoms. He does report that he feels like he has fluid on his lungs and has shortness of breath when lying down. He denies recent illness or trauma, fever, chest pain, nausea or vomiting, change in bowel or bladder function, swelling in his legs. Patient reports that he feels as though his stomach is stretching because of all of the extra fluid but denies any redness, warmth, drainage from his skin. Related Data Home Medications Medication Instructions Recorded Confirmed Atorvastatin Calcium 10 mg PO DAILY 02/12/18 06/14/22 naloxone 4 mg/actuation nasal 4 mg NS PRN #2 sprays 02/12/18 06/14/22 spray (Narcan) albuterol sulfate 90 mcg/actuation 2 inh inhalation QID PRN 04/04/21 06/14/22 aerosol inhaler (ProAir HFA) amlodipine 10 mg tablet 10 mg PO DAILY 04/04/21 06/14/22 hydrochlorothiazide 25 mg tablet 25 mg PO DAILY 04/04/21 06/14/22 losartan 25 mg tablet 25 mg PO DAILY 04/04/21 06/14/22 methadone 10 mg tablet 10 mg PO QID 04/04/21 06/14/22 metoprolol succinate 50 mg 50 mg PO DAILY 04/23/21 06/14/22 tablet,extended release 24 hr pantoprazole 40 mg tablet,delayed 40 mg PO DAILY #90 tabs 07/09/21 06/14/22 release (Protonix) budesonide-formoterol HFA 160 1 inh inhalation PRN PRN Shortness 05/06/22 06/14/22 mcg-4.5 mcg/actuation aerosol Of Breath Or Wheezing inhaler (Symbicort) Previous Rx's Medication Instructions Recorded pantoprazole 40 mg tablet,delayed 40 mg PO DAILY #90 tabs 07/09/21 release (Protonix) Allergies Allergy/AdvReac Type Severity Reaction Status Date / Time metformin Allergy Diarrhea Verified 06/14/22 20:27 lisinopril AdvReac Severe Swelling/Ed Verified 06/14/22 20:27 jessica General Stated Complaint: Abd Prob PEDRITO: 2 Review of Systems Constitutional Constitutional: Denies fatigue, Denies fever(s), Denies headache(s) and Denies weakness ENT Ears, Nose, Mouth, and Throat: Denies headache(s) and Denies neck pain Cardiovascular Cardiovascular: Denies chest pain, Reports dyspnea and Reports orthopnea Respiratory Respiratory: Reports cough (Chronic) and Reports dyspnea Gastrointestinal Gastrointestinal: Reports abdominal pain, Denies melena, Denies hematochezia, Reports diarrhea (Occasional), Denies nausea and Denies vomiting Genitourinary Genitourinary: Denies dysuria Musculoskeletal Musculoskeletal: Reports back pain (Chronic), Denies neck pain, Denies numbness and Denies tingling Integumentary/Breasts Skin/Breast: Denies rash Neurologic Neurologic: Denies headache(s), Denies numbness, Denies tingling and Denies weakness Endocrine Endocrine: Denies fatigue Hematologic/Lymphatic Hematologic/Lymphatic: Denies easy bleeding and Denies easy bruising PFSH All Active Problems (Updated 06/14/22 @ 22:27 by RAYMUNDO Donahue) Acute hyponatremia (Acute) Acute hypokalemia (Acute) Hypomagnesemia (Acute) Abdominal ascites (Acute) Alcoholism (Acute) Weakness (Acute) Normal colonoscopy (Acute) Bile reflux gastritis (Acute) Hiatal hernia with GERD (Acute) Emphysematous bleb of lung (Acute) Diabetes (Chronic) Lymphadenopathy (Acute) Pharyngoesophageal dysphagia (Acute) Elevation of levels of liver transaminase levels (Acute) SOB (shortness of breath) on exertion (Acute) Preop cardiovascular exam (Acute) Abnormal barium swallow (Acute) Smoker (Acute) Screening for malignant neoplasm of prostate (Acute) Injury of hand (Acute) plates and screws Chronic diarrhea (Acute) Night sweats (Acute 03/2021) Degeneration of lumbosacral intervertebral disc (Acute) Cholelithiasis without obstruction (Acute) Infection of tooth (Acute) Chronic obstructive lung disease (Chronic) Laryngeal spasm (Acute) Chronic post-traumatic headache (Acute) Chronic fatigue syndrome (Acute) Depressive disorder (Chronic) Hyperlipemia (Acute) Medical History Encounter for medication monitoring Esophagitis Gastritis History of esophageal reflux Surgical History Appendectomy Colonoscopy - MAC EGD - MAC Fracture, Open Treatment History of colonoscopy (~05/04/21) with bx History of esophagogastroduodenoscopy (EGD) (~05/04/21) Rotator Cuff Repair Bilateral Vasectomy Family History Father Cirrhosis of liver Diabetes Melitus Social History Smoking/Tobacco Use Status: Current every day Tobacco Type: cigarettes Years smoked: 30 Tobacco: How many years used: 30 Smoking risk assessment performed?: Yes Alcohol Intake: current Alcohol Intake frequency: 3 or more drinks per day Alcohol type: beer Drug use: Daily 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 Pets and animals: Yes Pets and animals: dog(s) Current gender identity: male Do you feel safe at home: Yes Do you feel safe in your relationship?: Yes Exam Const General: cooperative, comfortable, no acute distress and ill appearing chronically Orientation: alert, awake and oriented x3 HENMT Head: normal to inspection, normocephalic and atraumatic Face and sinus: normal facial exam Mouth: moist mucous membranes Eyes General: appearance normal, both eyes and all related structures Conjunctivae: conjunctivae normal Neck Neck: normal visual inspection, full ROM, no meningeal signs, trachea midline and supple Resp Effort & Inspection: normal respiratory effort and able to speak in complete sentences Auscultation: diminished lung sounds bilaterally and wheezes (Scattered throughout, mostly clear with cough) Cardio Rate: regular rate Rhythm: regular rhythm GI Inspection: distended Palpation: soft, no guarding, no pulsatile masses, nontender and ascites Auscultation: normal bowel sounds Back/Spine/Pelvis Back: No back tenderness Skin General skin exam: no rashes or lesions noted Neuro General: patient alert, patient awake, patient oriented x3, moves all extremities and no focal motor deficits Cognition: normal cognition Speech: speech normal Gait: normal gait Motor: muscle tone normal throughout Sensory Exam: no sensory deficits noted Extrem General: normal to inspection, full ROM, capillary refill normal, no pedal edema and no calf tenderness Psych Appearance: grossly normal Mental Status: mental status grossly normal Course Vital Signs Vital signs: Vital Signs Temperature 36.7 C 06/14/22 20:20 Pulse 88 06/14/22 20:20 Respiratory Rate 18 06/14/22 20:20 Blood Pressure 118/79 06/14/22 20:20 Pulse Oximetry 99 06/14/22 20:20 Temperature 36.7 C 06/14/22 20:20 Temperature Source Temporal Artery Scan 06/14/22 20:20 Pulse 88 06/14/22 20:20 Respiratory Rate 18 06/14/22 20:20 Respiratory Effort 06/14/22 20:24 Blood Pressure 118/79 06/14/22 20:20 Blood Pressure Position Supine 06/14/22 20:20 Pulse Oximetry 99 06/14/22 20:20 Oxygen Delivery Method Room Air 06/14/22 20:20 Oxygen Flow Rate 0 06/14/22 20:20 Pain Level 5 06/14/22 20:20 PAWSS Have you Been Recently Intoxicated or Drunk Within the Last 30 days?: No Have you Ever Experienced Previous Episodes of Alcohol Withdrawal?: No Have you ever Experienced Withdrawal Seizures?: No Have you ever Experienced Delirium Tremens(DT)s?: No Have you ever undergone Alcohol Rehabilitation Treatment (i.e, inpt ot outpatient treatment programs)?: No Have you ever Experienced Blackouts?: No Have you ever Combined Alcohol with other Downers within the last 90 days?: No Have you ever Combined Alcohol with any other Substance of Abuse during the last 90 days?: No Positive Blood Alcohol level on Presentation? [PCS.BAL]: No Evidence of Increased Autonomic Activity (i.e. HR>120, tremor, sweating, agitation, nausea)?: No Result: 0
[2022-06-14 21:18] LABS: Source Nasal/Nares
[2022-06-14 21:20] LABS: Abs Immature Grans 0.05 10^3/uL (0.0-0.06); Absolute Basophil Count 0.04 10^3/uL (0.0-0.2); Absolute Eosinophil Count 0.29 10^3/uL (0.0-0.7); Absolute Lymphocyte Count 1.74 10^3/uL (1.2-3.4); Absolute Monocyte Count 0.77 10^3/uL (0.1-0.8); Absolute Neutrophil Count 6.77 10^3/uL (1.2-6.7); Basophils % 0.4; HGB 13.3 g/dL (13.5-17.5); Immature Grans % 0.5; MCH 33.5 pg (27.0-33.0); MCHC 35.9 % (32.0-36.0); MCV 93 fL (80-95); Neutrophils % 70.1; Platelet Count 188 10^3/uL (130-400); RBC 3.97 10^6/uL (4.36-5.78); RDW 11.4 % (11.8-14.1); WBC 9.66 10^3/uL (4.4-10.8)
[2022-06-14 21:37] LABS: ALT 37 U/L (16-63); AST 62 U/L (15-37); Albumin 3.6 g/dL (3.4-5.0); Alkaline Phosphatase 117 U/L (46-116); Anion Gap 14.4 mmol/L (3-11); BUN 5 mg/dL (7-18); Bilirubin, Total 1.8 mg/dL (0.2-1.0); CO2 23.6 mmol/L (21.0-32.0); CREATININE 0.7 mg/dL (0.70-1.30); Calcium 7.4 mg/dL (8.5-10.1); Chloride 86 mmol/L (98-107); Estimated GFR 108.14 (mL/min/1.73m2); Glucose 138 mg/dL (74-106); Potassium 3.4 mmol/L (3.5-5.1); Total Protein 7.3 g/dL (6.4-8.2)
[2022-06-14 21:41] LABS: Lipase 254 U/L (73-393); Troponin I < 50 ng/L (<or=60)
[2022-06-14 21:44] LABS: ETHANOL BLOOD 205.5 mg/dL (<10); NT-proBNP 241 pg/mL (<300)
[2022-06-14 21:45] LABS: Sodium 124 mmol/L (136-145)
[2022-06-14 21:46] LABS: Magnesium 0.6 mg/dL (1.8-2.4)
[2022-06-14 21:50] LABS: COVID-19 PCR Negative (Negative)
--- NOTE | 2022-06-14 22:18 | DI.VRAD_ITS ---
PROCEDURE INFORMATION: Exam: XR Chest Exam date and time: 06/14/2022 9:47 PM Age: 56 years old Clinical indication: Pain; Other: SOB TECHNIQUE: Imaging protocol: Radiologic exam of the chest. Views: 2 views. COMPARISON: CT CHEST/ABD/PEL WO 05/23/2022 9:23 PM FINDINGS: Lungs: No consolidation. Pleural spaces: Unremarkable. No pleural effusion. No pneumothorax. Heart/Mediastinum: Unremarkable. No cardiomegaly. Bones/joints: Unremarkable. IMPRESSION: No acute findings. Dictated and Authenticated by: Mike Delgado MD. Ordering:ESPINOZA Bolanos MD
[2022-06-14] MEDS: Potassium Chloride 20 MEQ TABCR 40 MEQ PO (22:46)
[2022-06-14] MEDS: Spironolactone 50 MG TAB 100 MG PO (22:46)
[2022-06-14] MEDS: MAGNESIUM SULFATE 2 GM/50 ML BAG IVPB (22:46)
[2022-06-14] MEDS: Normal Saline 1,000 ML 1000 ML IV (22:46)
--- NOTE | 2022-06-14 23:44 | HPE_ITS ---
Date of service: 06/14/22 Time of Service: 23:44 Assessment and Plan Assessment and plan (1) Alcoholic cirrhosis of liver with ascites: Start date: 05/23/22 Status: Acute Assessment and plan: This is a 56-year-old gentleman who presented to the ED at 23 May with similar problems and had a diagnosis of ascites new onset with 3 L removed at that time but patient leaving AMA though offered treatment as an inpatient for electrolyte abnormality associated with probable alcoholic cirrhosis with ascites and chronic alcohol use. He returns with worsening abdominal bloating status post paracentesis and this hospitalization he agrees to stay for treatment and further evaluation. He will need to be watched for alcohol withdrawal. Therapeutic paracentesis could be done if uncomfortable and not responding to diuretic therapy with Aldactone. Ultrasound of the liver and eventual GI evaluation would be appropriate. (2) Acute exacerbation of chronic obstructive pulmonary disease (COPD): Start date: 06/14/22 Status: Acute Assessment and plan: Patient has increased sputum production and is a smoker therefore will be treated as if he has at least purulent bronchitis with slight change in sputum and volume starting Rocephin IV and doxycycline IV along with Solu-Medrol IV for exacerbation of COPD with increased bronchospasm. He will be given nicotine inhalers while in the hospital and not smoking tobacco. He will be encouraged to smoke top tobacco chronically. (3) Alcoholism: Status: Chronic Assessment and plan: CIWA protocol while in hospital. (4) Hypomagnesemia: Start date: 06/14/22 Status: Acute Assessment and plan: Secondary to chronic alcohol use with patient to have repletion IV and oral therapy if appropriate. Advised adequate diet as with diabetes and cessation of alcohol. (5) Acute hypokalemia: Start date: 06/14/22 Status: Acute Assessment and plan: Replete with IV and oral if necessary especially with use of diuretics though spironolactone should not cause hypokalemia. Adequate diet off alcohol. (6) Acute hyponatremia: Start date: 06/14/22 Status: Acute Assessment and plan: IV replacement and fluid restriction along with diuretics for now. This is secondary to alcohol use and should resolve eventually when of alcohol chronically. (7) Chronic post-traumatic headache: Status: Acute Assessment and plan: Patient is on methadone chronically as an outpatient this need to be reevaluated his significant alcohol use which has been minimized on his outpatient chart as 3-4 beers weekly though he has had elevated liver function test and fatty liver noted in the past thought to be secondary to metabolic issues. History of Present Illness History of Present Illness Chief Complaint: Abdominal bloating and cough when supine Narrative: This is a 56-year-old male patient with past medical history of chronic pain on methadone for which he sees his PCP but also COPD with active tobacco use, hypertension, diabetes diet controlled, hyperlipidemia and daily alcohol use wi beer which he has not discussed with his PCP. He has not wanted to have routine follow-up or preventive care. He has not discussed his drinking with his PCP because he thought that he was not drinking that much. And does not understand why he is having problems with abdominal swelling and ascites at this time. He was seen in the ED at [facility] 05/23/2022 with work-up revealing ascites resulting in 3 L of fluid removed with paracentesis and lab evaluation with imaging revealing probable cirrhosis with ascites and electrolyte abnormalities associate with chronic alcohol use. He was to be admitted at that time but signed out AMA. He returns with a several day history of gradually increasing abdominal girth and bloating with discomfort from the swelling as well as shortness of breath especially with lying down weight feels as if he is being water boarded. He does have chronic cough with sputum production but this is worsened recently. He denies any fever or hemoptysis. He is moving his bowels well and denies any abdominal pain other than the tense abdomen swelling, he denies fever or chills and no redness over his abdomen. He denies any significant peripheral edema. His abdominal discomfort is mostly the sensation of stretching. In the ED this admission the patient also almost left AMA when he went outside to smoke but was willing to stay for treatment and possible rep eat therapeutic paracentesis as well as work on further evaluation with diuresis. With his cough and sputum production it appears he may be having also exacerbation of COPD with significant sputum production increase and this will be treated as well. Electrolyte amount will be treated with repletion as needed with IV. He will be on CIWA protocol because of his daily drinking. Review of Systems Narrative: 13 point review of systems otherwise unrevealing or stable. He is a vague historian and often describes himself as a recluse. PFSH All Active Problems (Updated 06/15/22 @ 16:11 by Asad El) Alcoholic cirrhosis of liver with ascites (Acute) Discharge planning issues (Acute) DVT prophylaxis (Acute) Chronic anemia (Acute) Acute exacerbation of chronic obstructive pulmonary disease (COPD) (Acute) Acute hyponatremia (Acute) Acute hypokalemia (Acute) Hypomagnesemia (Acute) Abdominal ascites (Acute) Alcoholism (Chronic) Weakness (Acute) Normal colonoscopy (Acute) Bile reflux gastritis (Acute) Hiatal hernia with GERD (Acute) Emphysematous bleb of lung (Acute) Diabetes (Chronic) Lymphadenopathy (Acute) Pharyngoesophageal dysphagia (Acute) Elevation of levels of liver transaminase levels (Acute) SOB (shortness of breath) on exertion (Acute) Preop cardiovascular exam (Acute) Abnormal barium swallow (Acute) Smoker (Acute) Screening for malignant neoplasm of prostate (Acute) Injury of hand (Acute) plates and screws Chronic diarrhea (Acute) Night sweats (Acute 03/2021) Degeneration of lumbosacral intervertebral disc (Acute) Cholelithiasis without obstruction (Acute) Infection of tooth (Acute) Chronic obstructive lung disease (Chronic) Laryngeal spasm (Acute) Chronic post-traumatic headache (Acute) Chronic fatigue syndrome (Acute) Depressive disorder (Chronic) Hyperlipemia (Acute) Medical History Encounter for medication monitoring Esophagitis Gastritis History of esophageal reflux Surgical History Appendectomy Colonoscopy - MAC EGD - MAC Fracture, Open Treatment History of colonoscopy (~05/04/21) with bx History of esophagogastroduodenoscopy (EGD) (~05/04/21) Rotator Cuff Repair Bilateral Vasectomy Family History Father Cirrhosis of liver Diabetes Melitus Social History Smoking/Tobacco Use Status: Current every day Tobacco Type: cigarettes Years smoked: 30 Tobacco: How many years used: 30 Smoking risk assessment performed?: Yes Alcohol Intake: current Alcohol Intake frequency: 3 or more drinks per day Alcohol type: beer Drug use: Current Sobriety 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 Pets and animals: Yes Pets and animals: dog(s) Current gender identity: male Do you feel safe at home: Yes Do you feel safe in your relationship?: Yes Meds Allergies and Home Medications Allergies Allergy/AdvReac Type Severity Reaction Status Date / Time metformin Allergy Diarrhea Verified 06/14/22 20:27 lisinopril AdvReac Severe Swelling/Ed Verified 06/14/22 20:27 jessica Home Medications Medication Instructions Recorded Confirmed Type Atorvastatin Calcium 10 mg PO DAILY 02/12/18 06/14/22 History naloxone 4 mg/actuation nasal 4 mg NS PRN #2 sprays 02/12/18 06/14/22 History spray (Narcan) albuterol sulfate 90 mcg/actuation 2 inh inhalation QID PRN 04/04/21 06/14/22 History aerosol inhaler (ProAir HFA) amlodipine 10 mg tablet 10 mg PO DAILY 04/04/21 06/14/22 History hydrochlorothiazide 25 mg tablet 25 mg PO DAILY 04/04/21 06/14/22 History losartan 25 mg tablet 25 mg PO DAILY 04/04/21 06/14/22 History methadone 10 mg tablet 10 mg PO QID 04/04/21 06/14/22 History metoprolol succinate 50 mg 50 mg PO DAILY 04/23/21 06/14/22 History tablet,extended release 24 hr pantoprazole 40 mg tablet,delayed 40 mg PO DAILY #90 tabs 07/09/21 06/14/22 Rx release (Protonix) budesonide-formoterol HFA 160 1 inh inhalation PRN PRN Shortness 05/06/22 06/14/22 History mcg-4.5 mcg/actuation aerosol Of Breath Or Wheezing inhaler (Symbicort) Exam Narrative Exam Narrative: General: Patient appears older than stated age, alert and oriented to person, place and time, in moderate distress with his cough and abdominal distention but able to focus with strong denial during conversation of his lifestyle which is harmful. He is moderately obese over the trunk otherwise mesomorphic. HEENT: Normocephalic, face with coarsened features and traumatic with scar over scalp, hair with long oily naidu hair and naidu hinojosa unkempt, eyes with pupils equal and reactive light symmetrically, extraocular movement intact and sclera anicteric. Oropharynx with moist mucosa and poor dentition. Neck: Supple without JVD. Back: Stooped posture with decreased range of motion and no CVA tenderness. Lungs: Bronchovesicular breath sounds diffusely with coarse crackles and rales over the right hemithorax especially over the base with decreased aeration at the base, no expiratory wheeze but increased expiratory phase, rhonchi with cough partially clearing. Abdomen: Protuberant, tense with positive fluid wave and uncomfortable with deep palpation but able to palpate with some depth without palpable masses or hepatosplenomegaly. Bowel sounds are positive but decreased throughout. Genitalia/rectal: Exam deferred. Extremity: Without clubbing, cyanosis or pitting edema. Fair capillary refill with peripheral pulses intact. Skin: Pale, warm and dry with some increased oiliness over the areas of his scalp and intertriginous areas of his body. Neuro: Cranial nerves II through XII grossly intact, no focalizing motor deficits and no tremor. Patient does have decrease mentation at times with a history of TBI and chronic headache pain from head trauma in the past. Psych: Flattened affect with depressed mood, slow monotonous tone to speech, no abnormal thought processes. Remote memory intact and recent memory grossly intact with poor concentration. Results Imaging Additional studies: Hepatic steatosis seen on CT with contrast March 2021. Imaging Studies: Exam: XR Chest Exam date and time: 06/14/2022 9:47 PM Age: 56 years old Clinical indication: Pain; Other: SOB TECHNIQUE: Imaging protocol: Radiologic exam of the chest. Views: 2 views. COMPARISON: CT CHEST/ABD/PEL WO 05/23/2022 9:23 PM FINDINGS: Lungs: No consolidation. Pleural spaces: Unremarkable. No pleural effusion. No pneumothorax. Heart/Mediastinum: Unremarkable. No cardiomegaly. Bones/joints: Unremarkable. IMPRESSION: No acute findings. EXAM:? CT CHEST/ABD/PEL WO CLINICAL HISTORY:? cough, sob, abdominal distension, lower abd pain TECHNIQUE:? CT examination of the chest, abdomen, and pelvis was performed without contrast administration. COMPARISON:? CT CT NECK CHEST ABD ? PEL W from 04/04/2021 FINDINGS: The lungs are clear. There is no pleural effusion seen. There is no mediastinal or hilar adenopathy. No thoracic aortic aneurysm.? No gross mediastinal fluid collection. No bony abnormality seen in the thorax. There is marked abdominal ascites.? This was not present on prior examination of March 2021 The liver is normal appearance.? Gallbladder and bile ducts are CT normal. No abnormality seen involving the spleen. Pancreas appears intact. The adrenals are unremarkable in appearance.? The kidneys appear intact with no evidence of hydronephrosis or nephrolithiasis. Abdominal aorta and major visceral branches appear intact by noncontrast criteria. No significant abdominal wall hernia seen.? No significant abdominal or pelvic adenopathy. No focal bowel pathology.? No evidence of appendicitis or diverticulitis. IMPRESSION: Marked abdominal ascites, otherwise no specific findings. Labs Result diagrams: 06/15/22 06:05 06/15/22 06:05 Labs: Laboratory Results - last 24 hr 06/14/22 06/14/22 06/14/22 21:11 21:15 21:15 WBC RBC Hgb Hct MCV MCH MCHC RDW Plt Count MPV Immature Gran % Neutrophils % Lymphocytes % Monocytes % Eosinophils % Basophils % Nucleated RBC % Absolute Neutrophils Absolute Lymphocytes Absolute Monocytes Absolute Eosinophils Absolute Basophils Sodium 124 L Potassium 3.4 L Chloride 86 L Carbon Dioxide 23.6 Anion Gap 14.4 H BUN 5 L Creatinine 0.7 Est GFR (CKD-EPI 2020) 108.14 Glucose 138 H Calcium 7.4 L Magnesium 0.6 L* Total Bilirubin 1.8 H AST 62 H ALT 37 Alkaline Phosphatase 117 H Troponin I < 50 NT-Pro-B Natriuret Pep Total Protein 7.3 Albumin 3.6 Lipase 254 Ethyl Alcohol COVID-19 Source Nasal/Nares SARS-CoV-2 (PCR) Negative 06/14/22 06/14/22 21:15 21:15 WBC 9.66 RBC 3.97 L Hgb 13.3 L Hct 37.0 L MCV 93 MCH 33.5 H MCHC 35.9 RDW 11.4 L Plt Count 188 MPV 10.0 Immature Gran % 0.5 Neutrophils % 70.1 Lymphocytes % 18.0 Monocytes % 8.0 Eosinophils % 3.0 Basophils % 0.4 Nucleated RBC % 0.0 Absolute Neutrophils 6.77 H Absolute Lymphocytes 1.74 Absolute Monocytes 0.77 Absolute Eosinophils 0.29 Absolute Basophils 0.04 Sodium Potassium Chloride Carbon Dioxide Anion Gap BUN Creatinine Est GFR (CKD-EPI 2020) Glucose Calcium Magnesium Total Bilirubin AST ALT Alkaline Phosphatase Troponin I NT-Pro-B Natriuret Pep 241 Total Protein Albumin Lipase Ethyl Alcohol 205.5 H COVID-19 Source SARS-CoV-2 (PCR) Last Vital Signs Temp 36.7 C 06/14/22 20:20 Pulse 88 06/14/22 20:20 Resp 18 06/14/22 20:20 BP 118/79 06/14/22 20:20 Pulse Ox 99 06/14/22 20:20 PAWSS Have you Been Recently Intoxicated or Drunk Within the Last 30 days?: No Have you Ever Experienced Previous Episodes of Alcohol Withdrawal?: No Have you ever Experienced Withdrawal Seizures?: No Have you ever Experienced Delirium Tremens(DT)s?: No Have you ever undergone Alcohol Rehabilitation Treatment (i.e, inpt ot outpatient treatment programs)?: No Have you ever Experienced Blackouts?: No Have you ever Combined Alcohol with other Downers within the last 90 days?: No Have you ever Combined Alcohol with any other Substance of Abuse during the last 90 days?: No Positive Blood Alcohol level on Presentation? [PCS.BAL]: No Evidence of Increased Autonomic Activity (i.e. HR>120, tremor, sweating, agitation, nausea)?: No Result: 0
[2022-06-14 23:46] VITALS: PULSE 87
[2022-06-15] VITALS (50 sets, daily range): BP systolic 102–114; BP diastolic 65–75; PULSE 67–106; RESP 7–18; TEMP 36.7–37.7; O2SAT 93–99
[2022-06-15 00:19] LABS: TSH (W/Ref FT4) 4.74 uIU/mL (0.36-3.74)
[2022-06-15] MEDS: LORazepam 1 MG TAB PO/SL ×3 (00:28→20:43)
[2022-06-15 00:40] LABS: FREE T4 1.43 ng/dL (0.76-1.46)
[2022-06-15 00:44] LABS: PHOSPHORUS 3.8 mg/dL (2.6-4.7)
--- NOTE | 2022-06-15 00:59 | NUR.NOTE ---
Pt reports he drinks 2-3 beers a day.
[2022-06-15] MEDS: MAGNESIUM SULFATE 4 GM/100 ML BAG IVPB (01:14)
[2022-06-15] MEDS: Normal Saline Flush 10 ML SYR IVP ×4 (01:15→20:30)
[2022-06-15 01:52] LABS: Bilirubin Negative (Negative); Blood Negative (Negative); Clarity Clear (Clear); Glucose Negative (Negative); Ketones Negative (Negative); Leukocyte Esterase Negative (Negative); Nitrite Negative (Negative); Urobilinogen 0.2 EU/dL (Up TO 0.2)
[2022-06-15 02:05] LABS: *AMPHETAMINES SCREEN URINE Negative (Negative); *BARBITURATES SCREEN URINE Negative (Negative); *BENZODIAZEPINES SCREEN URINE Negative (Negative); Cannabinoids THC Positive (Negative); Cocaine Screen,Urine Negative (Negative); METHADONE URINE SCREEN Positive (Negative); OPIATES URINE SCREEN Negative (Negative)
[2022-06-15 02:06] LABS: Tricyclic Antidepressants Negative (Negative)
[2022-06-15] MEDS: Heparin 5,000 UNITS/ML VIAL 5000 UNITS SC ×2 (05:52→22:12)
--- NOTE | 2022-06-15 06:04 | NUR.NOTE ---
0600 metoprolol held due to parameters bp of 96/68 left arm.
[2022-06-15 06:43] LABS: Abs Immature Grans 0.02 10^3/uL (0.0-0.06); Absolute Basophil Count 0.03 10^3/uL (0.0-0.2); Absolute Eosinophil Count 0.21 10^3/uL (0.0-0.7); Absolute Lymphocyte Count 1.25 10^3/uL (1.2-3.4); Absolute Monocyte Count 0.56 10^3/uL (0.1-0.8); Absolute Neutrophil Count 4.32 10^3/uL (1.2-6.7); Basophils % 0.5; Eosinophils % 3.3; HGB 12.3 g/dL (13.5-17.5); Immature Grans % 0.3; Lymphocytes % 19.6; MCH 33.2 pg (27.0-33.0); MCHC 36.2 % (32.0-36.0); MCV 92 fL (80-95); MPV 9.8 fL (8.0-11.0); Monocytes % 8.8; Neutrophils % 67.5; Platelet Count 165 10^3/uL (130-400); RBC 3.71 10^6/uL (4.36-5.78); RDW 11.7 % (11.8-14.1); RDW-SD 38.8 fL; WBC 6.39 10^3/uL (4.4-10.8)
[2022-06-15 07:03] LABS: INR 1.4 (0.9-1.1); Prothrombin Time 14.1 sec (9.3-11.0)
[2022-06-15 07:15] LABS: ALT 29 U/L (16-63); AST 54 U/L (15-37); Albumin 2.9 g/dL (3.4-5.0); Alkaline Phosphatase 97 U/L (46-116); Anion Gap 14.4 mmol/L (3-11); BUN 3 mg/dL (7-18); Bilirubin, Total 1.3 mg/dL (0.2-1.0); CO2 22.6 mmol/L (21.0-32.0); CREATININE 0.6 mg/dL (0.70-1.30); Calcium 7.2 mg/dL (8.5-10.1); Chloride 93 mmol/L (98-107); Estimated GFR 113.29 (mL/min/1.73m2); Glucose 84 mg/dL (74-106); Magnesium 1.8 mg/dL (1.8-2.4); Potassium 3.2 mmol/L (3.5-5.1); Sodium 130 mmol/L (136-145); Total Protein 6.3 g/dL (6.4-8.2)
[2022-06-15] MEDS: methylPREDNISolone SUCC 125 MG VIAL 60 MG IVP (08:47)
[2022-06-15] MEDS: Methadone 10 MG TAB PO ×4 (08:52→20:29)
[2022-06-15] MEDS: Losartan 25 MG TAB PO (08:52)
[2022-06-15] MEDS: Thiamine 100 MG TAB PO (08:52)
[2022-06-15] MEDS: Folic Acid 1 MG TAB PO (08:52)
[2022-06-15] MEDS: Pantoprazole 40 MG TABCR PO (08:52)
[2022-06-15] MEDS: Multivitamin TAB 1 TAB PO (08:53)
[2022-06-15] MEDS: Spironolactone 25 MG TAB PO (08:53)
[2022-06-15] MEDS: cefTRIAXone 1 GM/50 ML BAG IVPB (08:56)
--- NOTE | 2022-06-15 09:23 | INITIAL_ITS ---
- If Service Date Differs Date of service: 06/15/22 Time of Service: 09:24 Care Management Initial Assess REASON FOR HOSPITALIZATION:: Acute hyponatremia, Acute hypokalemia, Hypomagnesemia, Abdominal ascites PAST MEDICAL HISTORY/PAST SURGICAL HISTORY:: All Active Problems (Updated 06/14/22 @ 22:27 by RAYMUNDO Donahue). Acute hyponatremia (Acute). Acute hypokalemia (Acute). Hypomagnesemia (Acute). Abdominal ascites (Acute). Alcoholism (Acute). Weakness (Acute). Normal colonoscopy (Acute). Bile reflux gastritis (Acute). Hiatal hernia with GERD (Acute). Emphysematous bleb of lung (Acute). Diabetes (Chronic). Lymphadenopathy (Acute). Pharyngoesophageal dysphagia (Acute). Elevation of levels of liver transaminase levels (Acute). SOB (shortness of breath) on exertion (Acute). Preop cardiovascular exam (Acute). Abnormal barium swallow (Acute). Smoker (Acute). Screening for malignant neoplasm of prostate (Acute). Injury of hand (Acute). plates and screws. Chronic diarrhea (Acute). Night sweats (Acute 03/2021). Degeneration of lumbosacral intervertebral disc (Acute). Cholelithiasis without obstruction (Acute). Infection of tooth (Acute). Chronic obstructive lung disease (Chronic). Laryngeal spasm (Acute). Chronic post-traumatic headache (Acute). Chronic fatigue syndrome (Acute). Depressive disorder (Chronic). Hyperlipemia (Acute). Medical History . Encounter for medication monitoring. Esophagitis. Gastritis. History of esophageal reflux. Surgical History . Appendectomy. Colonoscopy - MAC. EGD - MAC. Fracture, Open Treatment. History of colonoscopy (~05/04/21). with bx. History of esophagogastroduodenoscopy (EGD) (~05/04/21). Rotator Cuff Repair. Bilateral. Vasectomy PREVIOUS FUNCTIONAL STATUS/SOCIAL/FAMILY SUPPORTS:: Franklin lives in [place] alone with his dog. His grandson is watching his dog during this admission. Franklin is independent with his ADL's. He no longer drives, but his family help with transportation. Franklin identifies his daughter in law Syeda as being his primary support person. CURRENT FUNCTIONAL STATUS:: Franklin was lying in bed when CM met with him. He is alert, oriented and able to engage in conversation. He identifies his daghter in law syeda as being very helpful and very involved in his care. Franklin would like a nebilizer for home. He says neb treatments help his breathing. ADVANCE DIRECTIVES:: None on file, CM will offer forms. Has patient been provided with info about the portal/API?: Yes Did the patient sign up for the portal?: Yes (Prior to admission) CODE STATUS:: Full Code INSURANCE COVERAGE / FINANCIAL ISSUES:: Medicaid CURRENT HOME/COMMUNITY SERVICES/EQUIPMENT:: None PRIMARY CARE PHYSICIAN:: Asad El PATIENT/FAMILY EDUCATION NEEDS:: Review discharge instructions, limitations, medications and plan to follow up with community providers. Review ask me three. TRANSPORTATION:: Via private vehicle with [id number] Syeda Duenas. PLAN:: Franklin is being closely monitored and treated. He is on Telemetry and CIWA protocol, Surgical is consulted to evaluate for a paracetesis. Anticipate, Franklin will discharge home via private vehicle with family when medically ready. He will follow up with community providers and discharge plan of care as prescribed. New [facility] services will be ordered, if needed on discharge. In addition, CM will place a referral to [facility] if patient is agreeable.
[2022-06-15] MEDS: DOXYCYCLINE 100 MG in Normal Saline 100 ML IVPB ×2 (09:50→20:29)
[2022-06-15] MEDS: Potassium Chloride 20 MEQ TABCR 40 MEQ PO (10:24)
[2022-06-15] MEDS: Metoprolol 12.5 MG TAB PO ×2 (12:22→18:26)
[2022-06-15] MEDS: LORazepam 20 MG/10 ML VIAL IVP (12:24)
[2022-06-15] MEDS: Lidocaine 2% Multi-Dose 50 ML VIAL IJ (12:49)
--- NOTE | 2022-06-15 12:52 | W.SURGCON ---
Date of service: 06/15/22 Time of Service: 12:53 Assessment and Plan Assessment and plan (1) Abdominal ascites: Status: Acute Assessment and plan: I were asked to see Mr. Duenas for Paracenthesis. His ascitis is most likely due to alcoholic cirrhosis although the CT scan doesn't show cirrhosis at this time. There is no US of his liver. The procedure was discussed with the patient as well as the risks and benefits. Complications include but are not limited to bleeding, infection, injury to the small intestine requiering surgery to fix. Patients questions were entertained and answered to his satisfaction and he wished to proceed. I also discussed importance of stopping any alcohol intake. History of Present Illness Narrative: Mr. Duenas is a 56 year old male who was admitted overnight by the Hospitalist for ascitis and electrolite abnormalities. The patient was previously seen in the ED on 05/23 and 3 L of fluid was removed from his abdomen. He complains of early satiety, weight loss, night sweats and chills, shortness of breath, and chest pain which is intermittent. He had a low grade fever on admission. BPs have been soft in the low 100's. He denies any dizziness. He is a drinker. He states that he has been trying to cut down on his drinking and is now only drinking 3 Beers a day. Consults Consult date: 06/15/22 Requesting physician: Belia Gonzales Review of Systems Constitutional Constitutional: Reports chills, Reports fatigue, Denies headache(s), Reports night sweats, Reports poor appetite and Reports weight loss Eyes Eyes: Denies change in vision ENT Ears, Nose, Mouth, and Throat: Denies change in voice, Denies dysphagia, Denies headache(s) and Denies hoarseness Cardiovascular Cardiovascular: Denies chest pain, Denies chest pain at rest, Denies irregular heart rhythm, Denies palpitations and Reports dyspnea Respiratory Respiratory: Denies cough and Reports dyspnea Gastrointestinal Gastrointestinal: Denies change in bowel habits, Denies dysphagia, Reports early satiety, Denies dyspepsia and Denies heartburn Genitourinary Genitourinary: Reports system reviewed and no additional complaints, except as documented Musculoskeletal Musculoskeletal: Reports system reviewed and no additional complaints, except as documented Integumentary/Breasts Skin/Breast: Reports system reviewed and no additional complaints, except as documented Neurologic Neurologic: Denies headache(s) Endocrine Endocrine: Reports fatigue and Denies palpitations PFSH All Active Problems Acute hyponatremia (Acute) Acute hypokalemia (Acute) Hypomagnesemia (Acute) Abdominal ascites (Acute) Alcoholism (Acute) Weakness (Acute) Normal colonoscopy (Acute) Bile reflux gastritis (Acute) Hiatal hernia with GERD (Acute) Emphysematous bleb of lung (Acute) Diabetes (Chronic) Lymphadenopathy (Acute) Pharyngoesophageal dysphagia (Acute) Elevation of levels of liver transaminase levels (Acute) SOB (shortness of breath) on exertion (Acute) Preop cardiovascular exam (Acute) Abnormal barium swallow (Acute) Smoker (Acute) Screening for malignant neoplasm of prostate (Acute) Injury of hand (Acute) plates and screws Chronic diarrhea (Acute) Night sweats (Acute 03/2021) Degeneration of lumbosacral intervertebral disc (Acute) Cholelithiasis without obstruction (Acute) Infection of tooth (Acute) Chronic obstructive lung disease (Chronic) Laryngeal spasm (Acute) Chronic post-traumatic headache (Acute) Chronic fatigue syndrome (Acute) Depressive disorder (Chronic) Hyperlipemia (Acute) Medical History Encounter for medication monitoring Esophagitis Gastritis History of esophageal reflux Surgical History Appendectomy Colonoscopy - MAC EGD - MAC Fracture, Open Treatment History of colonoscopy (~05/04/21) with bx History of esophagogastroduodenoscopy (EGD) (~05/04/21) Rotator Cuff Repair Bilateral Vasectomy Family History Father Cirrhosis of liver Diabetes Melitus Social History Smoking/Tobacco Use Status: Current every day Tobacco Type: cigarettes Years smoked: 30 Tobacco: How many years used: 30 Smoking risk assessment performed?: Yes Alcohol Intake: current Alcohol Intake frequency: 3 or more drinks per day Alcohol type: beer Drug use: Current Sobriety 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 Pets and animals: Yes Pets and animals: dog(s) Current gender identity: male Do you feel safe at home: Yes Do you feel safe in your relationship?: Yes Exam Const General: comfortable, no acute distress and ill appearing Nutritional Appearance: malnourished HENUT Head: normocephalic and atraumatic Resp Effort & Inspection: normal respiratory effort Auscultation: clear to auscultation bilaterally and diminished lung sounds bilaterally in the lower lung o[place]o Cardio Rate: regular rate Rhythm: regular rhythm GI Inspection: distended Palpation: soft and tender in the LLQ and in the RLQ Auscultation: normal bowel sounds Results Last Vital Signs Temp 99.9 F H 06/15/22 11:15 Pulse 86 06/15/22 12:03 Resp 18 06/15/22 11:15 BP 107/66 06/15/22 11:15 Pulse Ox 93 06/15/22 11:15 Labs Result diagrams: 06/15/22 06:05 06/15/22 06:05 Labs: Laboratory Results - last 24 hr 06/14/22 06/14/22 06/14/22 21:11 21:15 21:15 WBC RBC Hgb Hct MCV MCH MCHC RDW Plt Count MPV Immature Gran % Neutrophils % Lymphocytes % Monocytes % Eosinophils % Basophils % Nucleated RBC % Absolute Neutrophils Absolute Lymphocytes Absolute Monocytes Absolute Eosinophils Absolute Basophils PT INR Sodium 124 L Potassium 3.4 L Chloride 86 L Carbon Dioxide 23.6 Anion Gap 14.4 H BUN 5 L Creatinine 0.7 Est GFR (CKD-EPI 2020) 108.14 Glucose 138 H Calcium 7.4 L Phosphorus Magnesium 0.6 L* Total Bilirubin 1.8 H AST 62 H ALT 37 Alkaline Phosphatase 117 H Troponin I < 50 NT-Pro-B Natriuret Pep Total Protein 7.3 Albumin 3.6 Lipase 254 TSH Free T4 Urine Color Urine Clarity Urine pH Ur Specific [place] Urine Protein Urine Ketones Urine Blood Urine Nitrite Urine Bilirubin Urine Urobilinogen Ur Leukocyte Esterase Urine Glucose Urine Opiates Screen Urine Methadone Screen Ur Barbiturates Screen Ur Tricyclics Screen Ur Amphetamines Screen U Benzodiazepines Scrn Urine Cocaine Screen Ur THC Screen Ethyl Alcohol COVID-19 Source Nasal/Nares SARS-CoV-2 (PCR) Negative 06/14/22 06/14/22 06/14/22 21:15 21:15 21:15 WBC 9.66 RBC 3.97 L Hgb 13.3 L Hct 37.0 L MCV 93 MCH 33.5 H MCHC 35.9 RDW 11.4 L Plt Count 188 MPV 10.0 Immature Gran % 0.5 Neutrophils % 70.1 Lymphocytes % 18.0 Monocytes % 8.0 Eosinophils % 3.0 Basophils % 0.4 Nucleated RBC % 0.0 Absolute Neutrophils 6.77 H Absolute Lymphocytes 1.74 Absolute Monocytes 0.77 Absolute Eosinophils 0.29 Absolute Basophils 0.04 PT INR Sodium Potassium Chloride Carbon Dioxide Anion Gap BUN Creatinine Est GFR (CKD-EPI 2020) Glucose Calcium Phosphorus Magnesium Total Bilirubin AST ALT Alkaline Phosphatase Troponin I NT-Pro-B Natriuret Pep 241 Total Protein Albumin Lipase TSH 4.74 H Free T4 1.43 Urine Color Urine Clarity Urine pH Ur Specific [place] Urine Protein Urine Ketones Urine Blood Urine Nitrite Urine Bilirubin Urine Urobilinogen Ur Leukocyte Esterase Urine Glucose Urine Opiates Screen Urine Methadone Screen Ur Barbiturates Screen Ur Tricyclics Screen Ur Amphetamines Screen U Benzodiazepines Scrn Urine Cocaine Screen Ur THC Screen Ethyl Alcohol 205.5 H COVID-19 Source SARS-CoV-2 (PCR) 06/15/22 06/15/22 06/15/22 00:05 01:37 01:37 WBC RBC Hgb Hct MCV MCH MCHC RDW Plt Count MPV Immature Gran % Neutrophils % Lymphocytes % Monocytes % Eosinophils % Basophils % Nucleated RBC % Absolute Neutrophils Absolute Lymphocytes Absolute Monocytes Absolute Eosinophils Absolute Basophils PT INR Sodium Potassium Chloride Carbon Dioxide Anion Gap BUN Creatinine Est GFR (CKD-EPI 2020) Glucose Calcium Phosphorus 3.8 Magnesium Total Bilirubin AST ALT Alkaline Phosphatase Troponin I NT-Pro-B Natriuret Pep Total Protein Albumin Lipase TSH Free T4 Urine Color Yellow Urine Clarity Clear Urine pH 6.0 Ur Specific [place] 1.010 Urine Protein Negative Urine Ketones Negative Urine Blood Negative Urine Nitrite Negative Urine Bilirubin Negative Urine Urobilinogen 0.2 Ur Leukocyte Esterase Negative Urine Glucose Negative Urine Opiates Screen Negative Urine Methadone Screen Positive A Ur Barbiturates Screen Negative Ur Tricyclics Screen Negative Ur Amphetamines Screen Negative U Benzodiazepines Scrn Negative Urine Cocaine Screen Negative Ur THC Screen Positive A Ethyl Alcohol COVID-19 Source SARS-CoV-2 (PCR) 06/15/22 06/15/22 06/15/22 06:05 06:05 06:05 WBC 6.39 RBC 3.71 L Hgb 12.3 L Hct 34.0 L MCV 92 MCH 33.2 H MCHC 36.2 H RDW 11.7 L Plt Count 165 MPV 9.8 Immature Gran % 0.3 Neutrophils % 67.5 Lymphocytes % 19.6 Monocytes % 8.8 Eosinophils % 3.3 Basophils % 0.5 Nucleated RBC % 0.0 Absolute Neutrophils 4.32 Absolute Lymphocytes 1.25 Absolute Monocytes 0.56 Absolute Eosinophils 0.21 Absolute Basophils 0.03 PT 14.1 H INR 1.4 H Sodium 130 L Potassium 3.2 L Chloride 93 L Carbon Dioxide 22.6 Anion Gap 14.4 H BUN 3 L Creatinine 0.6 L Est GFR (CKD-EPI 2020) 113.29 Glucose 84 Calcium 7.2 L Phosphorus Magnesium 1.8 Total Bilirubin 1.3 H AST 54 H ALT 29 Alkaline Phosphatase 97 Troponin I NT-Pro-B Natriuret Pep Total Protein 6.3 L Albumin 2.9 L Lipase TSH Free T4 Urine Color Urine Clarity Urine pH Ur Specific [place] Urine Protein Urine Ketones Urine Blood Urine Nitrite Urine Bilirubin Urine Urobilinogen Ur Leukocyte Esterase Urine Glucose Urine Opiates Screen Urine Methadone Screen Ur Barbiturates Screen Ur Tricyclics Screen Ur Amphetamines Screen U Benzodiazepines Scrn Urine Cocaine Screen Ur THC Screen Ethyl Alcohol COVID-19 Source SARS-CoV-2 (PCR) Imaging Abdomen CT scan report/results: image reviewed (from 05/23/22) Procedures Paracentesis Time out performed: Yes Indication: Ascites Procedure: diagnostic paracentesis (and therapeutic) Location: RLQ Local anesthetic used: lidocaine 2% Amount of anesthesia used (ml): 20 Bedside ultrasound used: no Preparation: 11 blade used to make nely in skin Amount of fluid obtained (ml): 4,300 Fluid: clear and sent to lab for analysis Size of needle used: 14 Post procedure exam: awake, alert Patient tolerated procedure: well Complications: none Additional comments: After informed consent was obtained from the patient she was placed on his bed in a supine position. The right lower quadrant was prepped and draped in a sterile surgical fashion. 2% lidocaine was injected into the dermis and down to the fascia. A small incision was made with an 11 blade. The needle and sheath that came in the kit was slowly advanced through the subcutaneous tissue and the peritoneum into the abdomen. As soon as serous fluid was suctioned the sheath was advanced over the needle into the abdomen and the needle was removed. The sheath was then attached to suction canisters and only 400 cc was removed. The catheter kept getting clogged. The catheter was removed and another area was injected with Lidocaine about 2 cm posteriorly. A small incision was made with an 11 blade. The needle and sheath that came in a new kit was slowly advanced through the subcutaneous tissue and the peritoneum into the abdomen. As soon as serous fluid was suctioned the sheath was advanced over the needle into the abdomen and the needle was removed. The sheath was then attached to suction canisters and a total of 4 L of serous fluid was removed without complication. Once the procedure was done the sheath was removed and a small Band-Aid was applied over the incision. The patient was slowly placed into a sitting position. Patient did not develop any dizziness. Patient did well and there were no immediate complications. Fluid was sent to the lab for studies
[2022-06-15] MEDS: Albuterol/Ipratropium 3 ML UPD VIAL UPD (13:20)
[2022-06-15] MEDS: Budesonide/Formoterol 160/4.5 6 GM 60 PUFF INH IH ×2 (13:22→20:30)
[2022-06-15 14:31] LABS: Clarity Clear; Nucleated Cells 422 uL (0); Source Peritoneal
[2022-06-15 14:46] LABS: Mononuclear Cells 94 %; Polynuclear Cells 6 %
--- NOTE | 2022-06-15 14:59 | W.PM.PROGNOT ---
Date of Service Date of service: 06/15/22 Time of Service: 14:59 Assessment and Plan Assessment and plan (1) Abdominal ascites: Status: Acute Assessment and plan: S/p paracenthesis - 4L removed. Fluid sent for studies. I have increased the dose of aldactone and added furosemide. Continue low sodium diet. Must abstain from alcohol. (2) Acute exacerbation of chronic obstructive pulmonary disease (COPD): Status: Acute Assessment and plan: Change steroids to prednisone 40 mg PO daily. Obtain sputum culture. Continue empiric ceftriaxone/doxycycline. Continue scheduled + prn nebs, symbicort, add mucolytics, IS/acapella. (3) Alcoholism: Status: Chronic Assessment and plan: Continue monitoring for alcohol withdrawal. Continue CIWA, thiamine, MVI. Check B12 and folate levels. (4) Acute hypokalemia: Status: Acute Assessment and plan: Replete, recheck in am (5) Hypomagnesemia: Status: Resolved Assessment and plan: Start oral magnesium repletion; recheck level in am. (6) Acute hyponatremia: Status: Acute Assessment and plan: Improved with diuresis. Continue to monitor sodiums. (7) Chronic anemia: Status: Acute Assessment and plan: Check B12, folate, iron studies, hematest (8) DVT prophylaxis: Status: Acute Assessment and plan: SC heparin (9) Discharge planning issues: Status: Acute Assessment and plan: Full code continues to require hospitalization Possible discharge home in the next 24-48 hrs. Subjective Subjective Interval history since last seen: Mr Duenas states that he feels better after his paracenthesis (4L removed). His breathing is also getting better. He denies dizziness, chest pain, states his shortness of breath is better. Cough is productive of thick naidu sputum - he states that's his normal. He states it's difficult to cough up. Denies n/v. CIWA scores have been 1 since his initial score of 8. Exam Narrative Exam Narrative: General: Pleasant middle-aged male who looks older than his stated age, mildly anxious/tremulous, A&Ox3, [place]: EOMI, MMM Heart: RRR, no m/r/g Lungs: Diminished breath sounds B Abdomen: soft, moderate amount of ascites; dressing RLQ is mildly saturated Extremities: + 1 BLE edema. Objective Last Vital Signs Temp 37.7 C H 06/15/22 11:15 Pulse 86 06/15/22 12:03 Resp 18 06/15/22 11:15 BP 107/66 06/15/22 11:15 Pulse Ox 93 06/15/22 11:15 Laboratory Results - last 24 hr 06/14/22 06/14/22 06/14/22 21:11 21:15 21:15 WBC RBC Hgb Hct MCV MCH MCHC RDW Plt Count MPV Immature Gran % Neutrophils % Lymphocytes % Monocytes % Eosinophils % Basophils % Nucleated RBC % Absolute Neutrophils Absolute Lymphocytes Absolute Monocytes Absolute Eosinophils Absolute Basophils PT INR Sodium 124 L Potassium 3.4 L Chloride 86 L Carbon Dioxide 23.6 Anion Gap 14.4 H BUN 5 L Creatinine 0.7 Est GFR (CKD-EPI 2020) 108.14 Glucose 138 H Calcium 7.4 L Phosphorus Magnesium 0.6 L* Total Bilirubin 1.8 H AST 62 H ALT 37 Alkaline Phosphatase 117 H Troponin I < 50 NT-Pro-B Natriuret Pep Total Protein 7.3 Albumin 3.6 Lipase 254 TSH Free T4 Urine Color Urine Clarity Urine pH Ur Specific [place] Urine Protein Urine Ketones Urine Blood Urine Nitrite Urine Bilirubin Urine Urobilinogen Ur Leukocyte Esterase Urine Glucose Fluid Source Fluid Color Fluid Clarity Fluid WBC Fld Polynuclear WBCs % Fluid Mononuclear Cell Urine Opiates Screen Urine Methadone Screen Ur Barbiturates Screen Ur Tricyclics Screen Ur Amphetamines Screen U Benzodiazepines Scrn Urine Cocaine Screen Ur THC Screen Ethyl Alcohol COVID-19 Source Nasal/Nares SARS-CoV-2 (PCR) Negative 06/14/22 06/14/22 06/14/22 21:15 21:15 21:15 WBC 9.66 RBC 3.97 L Hgb 13.3 L Hct 37.0 L MCV 93 MCH 33.5 H MCHC 35.9 RDW 11.4 L Plt Count 188 MPV 10.0 Immature Gran % 0.5 Neutrophils % 70.1 Lymphocytes % 18.0 Monocytes % 8.0 Eosinophils % 3.0 Basophils % 0.4 Nucleated RBC % 0.0 Absolute Neutrophils 6.77 H Absolute Lymphocytes 1.74 Absolute Monocytes 0.77 Absolute Eosinophils 0.29 Absolute Basophils 0.04 PT INR Sodium Potassium Chloride Carbon Dioxide Anion Gap BUN Creatinine Est GFR (CKD-EPI 2020) Glucose Calcium Phosphorus Magnesium Total Bilirubin AST ALT Alkaline Phosphatase Troponin I NT-Pro-B Natriuret Pep 241 Total Protein Albumin Lipase TSH 4.74 H Free T4 1.43 Urine Color Urine Clarity Urine pH Ur Specific [place] Urine Protein Urine Ketones Urine Blood Urine Nitrite Urine Bilirubin Urine Urobilinogen Ur Leukocyte Esterase Urine Glucose Fluid Source Fluid Color Fluid Clarity Fluid WBC Fld Polynuclear WBCs % Fluid Mononuclear Cell Urine Opiates Screen Urine Methadone Screen Ur Barbiturates Screen Ur Tricyclics Screen Ur Amphetamines Screen U Benzodiazepines Scrn Urine Cocaine Screen Ur THC Screen Ethyl Alcohol 205.5 H COVID-19 Source SARS-CoV-2 (PCR) 06/15/22 06/15/22 06/15/22 00:05 01:37 01:37 WBC RBC Hgb Hct MCV MCH MCHC RDW Plt Count MPV Immature Gran % Neutrophils % Lymphocytes % Monocytes % Eosinophils % Basophils % Nucleated RBC % Absolute Neutrophils Absolute Lymphocytes Absolute Monocytes Absolute Eosinophils Absolute Basophils PT INR Sodium Potassium Chloride Carbon Dioxide Anion Gap BUN Creatinine Est GFR (CKD-EPI 2020) Glucose Calcium Phosphorus 3.8 Magnesium Total Bilirubin AST ALT Alkaline Phosphatase Troponin I NT-Pro-B Natriuret Pep Total Protein Albumin Lipase TSH Free T4 Urine Color Yellow Urine Clarity Clear Urine pH 6.0 Ur Specific [place] 1.010 Urine Protein Negative Urine Ketones Negative Urine Blood Negative Urine Nitrite Negative Urine Bilirubin Negative Urine Urobilinogen 0.2 Ur Leukocyte Esterase Negative Urine Glucose Negative Fluid Source Fluid Color Fluid Clarity Fluid WBC Fld Polynuclear WBCs % Fluid Mononuclear Cell Urine Opiates Screen Negative Urine Methadone Screen Positive A Ur Barbiturates Screen Negative Ur Tricyclics Screen Negative Ur Amphetamines Screen Negative U Benzodiazepines Scrn Negative Urine Cocaine Screen Negative Ur THC Screen Positive A Ethyl Alcohol COVID-19 Source SARS-CoV-2 (PCR) 06/15/22 06/15/22 06/15/22 06:05 06:05 06:05 WBC 6.39 RBC 3.71 L Hgb 12.3 L Hct 34.0 L MCV 92 MCH 33.2 H MCHC 36.2 H RDW 11.7 L Plt Count 165 MPV 9.8 Immature Gran % 0.3 Neutrophils % 67.5 Lymphocytes % 19.6 Monocytes % 8.8 Eosinophils % 3.3 Basophils % 0.5 Nucleated RBC % 0.0 Absolute Neutrophils 4.32 Absolute Lymphocytes 1.25 Absolute Monocytes 0.56 Absolute Eosinophils 0.21 Absolute Basophils 0.03 PT 14.1 H INR 1.4 H Sodium 130 L Potassium 3.2 L Chloride 93 L Carbon Dioxide 22.6 Anion Gap 14.4 H BUN 3 L Creatinine 0.6 L Est GFR (CKD-EPI 2020) 113.29 Glucose 84 Calcium 7.2 L Phosphorus Magnesium 1.8 Total Bilirubin 1.3 H AST 54 H ALT 29 Alkaline Phosphatase 97 Troponin I NT-Pro-B Natriuret Pep Total Protein 6.3 L Albumin 2.9 L Lipase TSH Free T4 Urine Color Urine Clarity Urine pH Ur Specific [place] Urine Protein Urine Ketones Urine Blood Urine Nitrite Urine Bilirubin Urine Urobilinogen Ur Leukocyte Esterase Urine Glucose Fluid Source Fluid Color Fluid Clarity Fluid WBC Fld Polynuclear WBCs % Fluid Mononuclear Cell Urine Opiates Screen Urine Methadone Screen Ur Barbiturates Screen Ur Tricyclics Screen Ur Amphetamines Screen U Benzodiazepines Scrn Urine Cocaine Screen Ur THC Screen Ethyl Alcohol COVID-19 Source SARS-CoV-2 (PCR) 06/15/22 12:40 WBC RBC Hgb Hct MCV MCH MCHC RDW Plt Count MPV Immature Gran % Neutrophils % Lymphocytes % Monocytes % Eosinophils % Basophils % Nucleated RBC % Absolute Neutrophils Absolute Lymphocytes Absolute Monocytes Absolute Eosinophils Absolute Basophils PT INR Sodium Potassium Chloride Carbon Dioxide Anion Gap BUN Creatinine Est GFR (CKD-EPI 2020) Glucose Calcium Phosphorus Magnesium Total Bilirubin AST ALT Alkaline Phosphatase Troponin I NT-Pro-B Natriuret Pep Total Protein Albumin Lipase TSH Free T4 Urine Color Urine Clarity Urine pH Ur Specific [place] Urine Protein Urine Ketones Urine Blood Urine Nitrite Urine Bilirubin Urine Urobilinogen Ur Leukocyte Esterase Urine Glucose Fluid Source Peritoneal Fluid Color Yellow Fluid Clarity Clear Fluid WBC 422 Fld Polynuclear WBCs % 6 Fluid Mononuclear Cell 94 Urine Opiates Screen Urine Methadone Screen Ur Barbiturates Screen Ur Tricyclics Screen Ur Amphetamines Screen U Benzodiazepines Scrn Urine Cocaine Screen Ur THC Screen Ethyl Alcohol COVID-19 Source SARS-CoV-2 (PCR) PAWSS Have you Been Recently Intoxicated or Drunk Within the Last 30 days?: No Have you Ever Experienced Previous Episodes of Alcohol Withdrawal?: No Have you ever Experienced Withdrawal Seizures?: No Have you ever Experienced Delirium Tremens(DT)s?: No Have you ever undergone Alcohol Rehabilitation Treatment (i.e, inpt ot outpatient treatment programs)?: No Have you ever Experienced Blackouts?: No Have you ever Combined Alcohol with other Downers within the last 90 days?: No Have you ever Combined Alcohol with any other Substance of Abuse during the last 90 days?: No Positive Blood Alcohol level on Presentation? [PCS.BAL]: No Evidence of Increased Autonomic Activity (i.e. HR>120, tremor, sweating, agitation, nausea)?: No Result: 0
[2022-06-15] MEDS: Furosemide 20 MG TAB PO (16:22)
[2022-06-15] MEDS: guaiFENesin 600 MG TABCR PO ×2 (16:23→20:29)
[2022-06-15] MEDS: Atorvastatin 10 MG TAB PO (20:29)
[2022-06-15] MEDS: Spironolactone 25 MG TAB 50 MG PO (20:29)
[2022-06-15] MEDS: Magnesium Chloride 64 MG TABCR PO (20:29)
[2022-06-15] MEDS: Nicotine 2 MG LOZG SUC (22:05)
[2022-06-16] VITALS (48 sets, daily range): BP systolic 99–121; BP diastolic 71–73; PULSE 65–88; RESP 6–21; TEMP 35.7–36.9; O2SAT 93–99
[2022-06-16] MEDS: Mylanta Suspension 30 ML CUP PO (00:12)
[2022-06-16] MEDS: Metoprolol 12.5 MG TAB PO ×3 (00:13→12:24)
[2022-06-16] MEDS: Normal Saline Flush 10 ML SYR IVP ×3 (00:52→13:40)
[2022-06-16] MEDS: Ondansetron 4 MG/2 ML VIAL IVP ×3 (00:52→13:39)
[2022-06-16] MEDS: LORazepam 1 MG TAB PO/SL ×4 (01:03→12:22)
[2022-06-16 06:44] LABS: INR 1.6 (0.9-1.1); Prothrombin Time 15.8 sec (9.3-11.0)
[2022-06-16 06:45] LABS: Abs Immature Grans 0.02 10^3/uL (0.0-0.06); Absolute Eosinophil Count 0.01 10^3/uL (0.0-0.7); Absolute Lymphocyte Count 0.56 10^3/uL (1.2-3.4); Absolute Monocyte Count 0.44 10^3/uL (0.1-0.8); Absolute Neutrophil Count 5.22 10^3/uL (1.2-6.7); Eosinophils % 0.2; HCT 35.5 % (40.0-50.0); HGB 12.7 g/dL (13.5-17.5); Immature Grans % 0.3; MCH 33.2 pg (27.0-33.0); MCHC 35.8 % (32.0-36.0); MCV 93 fL (80-95); MPV 10.1 fL (8.0-11.0); Neutrophils % 83.5; Platelet Count 144 10^3/uL (130-400); RBC 3.82 10^6/uL (4.36-5.78); RDW 11.3 % (11.8-14.1); RDW-SD 38.4 fL; WBC 6.25 10^3/uL (4.4-10.8)
[2022-06-16 06:52] LABS: ALT 27 U/L (16-63); AST 35 U/L (15-37); Albumin 3.1 g/dL (3.4-5.0); Alkaline Phosphatase 97 U/L (46-116); BUN 5 mg/dL (7-18); Bilirubin, Direct 0.6 mg/dL (0.0-0.2); Bilirubin, Total 1.2 mg/dL (0.2-1.0); CREATININE 0.6 mg/dL (0.70-1.30); Calcium 7.7 mg/dL (8.5-10.1); Chloride 94 mmol/L (98-107); Estimated GFR 113.29 (mL/min/1.73m2); Glucose 164 mg/dL (74-106); Magnesium 0.8 mg/dL (1.8-2.4); Potassium 3.6 mmol/L (3.5-5.1); Sodium 129 mmol/L (136-145); Total Protein 6.9 g/dL (6.4-8.2)
[2022-06-16 06:56] LABS: Iron 43 ug/dL (65-175); Total Iron Binding Capacity 165 ug/dL (250-450); Transferrin Sat 26 % (20-55)
[2022-06-16 07:23] LABS: Ferritin 651 ng/mL (26-388); Folate 8.7 ng/mL (8.6-20.0); Vitamin B12 837 pg/mL (193-986)
[2022-06-16 07:25] LABS: Hemoglobin A1C 5.2 % (<5.7)
[2022-06-16] MEDS: Pantoprazole 40 MG TABCR PO (07:37)
[2022-06-16] MEDS: Budesonide/Formoterol 160/4.5 6 GM 60 PUFF INH IH (08:11)
[2022-06-16] MEDS: cefTRIAXone 1 GM/50 ML BAG IVPB (08:17)
[2022-06-16] MEDS: Magnesium Chloride 64 MG TABCR PO (08:18)
[2022-06-16] MEDS: Spironolactone 25 MG TAB 50 MG PO (08:19)
[2022-06-16] MEDS: Losartan 25 MG TAB PO (08:19)
[2022-06-16] MEDS: Folic Acid 1 MG TAB PO (08:20)
[2022-06-16] MEDS: Thiamine 100 MG TAB PO (08:20)
[2022-06-16] MEDS: predniSONE 20 MG TAB 40 MG PO (08:20)
[2022-06-16] MEDS: Methadone 10 MG TAB PO ×2 (08:21→12:24)
[2022-06-16] MEDS: Multivitamin TAB 1 TAB PO (08:21)
[2022-06-16] MEDS: guaiFENesin 600 MG TABCR PO (08:22)
[2022-06-16] MEDS: Furosemide 20 MG TAB PO (08:23)
[2022-06-16] MEDS: Nicotine 2 MG LOZG SUC (09:19)
[2022-06-16] MEDS: MAGNESIUM SULFATE 4 GM/100 ML BAG IVPB (09:35)
[2022-06-16] MEDS: DOXYCYCLINE 100 MG in Normal Saline 100 ML IVPB (10:19)
--- NOTE | 2022-06-16 12:41 | W.PM.PROGNOT ---
Date of Service Date of service: 06/16/22 Time of Service: 09:35 Assessment and Plan Assessment and plan (1) Abdominal ascites: Status: Acute Assessment and plan: S/p paracenthesis - 4L removed. Fluid analysis: yellow, clear, WBC 422, gluocse and protein pending. Cont aldactone and lasix. Continue low sodium diet. Must abstain from alcohol. (2) Acute exacerbation of chronic obstructive pulmonary disease (COPD): Status: Acute Assessment and plan: Continue prednisone 40 mg PO daily. Obtain sputum culture; pending collection. Continue empiric ceftriaxone/doxycycline. Continue scheduled + prn nebs, symbicort, add mucolytics, IS/acapella. (3) Alcoholism: Status: Chronic Assessment and plan: Continue monitoring for alcohol withdrawal. CIWA scorre of 20 this AM; transferred to ICU given likelyhood of requiring IV lorazepam in doses that are not permissible on the med-surg unit. Continue CIWA, thiamine, MVI. B12 level 837 Folate low normal at 8.7. (4) Acute hypokalemia: Status: Acute Assessment and plan: Repleted but level low normal at 3.6 Oral K at 20mg BID. Monitor. (5) Hypomagnesemia: Status: Acute Assessment and plan: Mg still low at 0.8. Oral and IV replacement. Monitor. (6) Acute hyponatremia: Status: Acute Assessment and plan: Improved with diuresis. Continue to monitor sodiums. (7) Chronic anemia: Status: Acute Assessment and plan: Fe low at 43. % transferrin saturation is low normal. Will give a dose of IV Venofer. (8) DVT prophylaxis: Status: Acute Assessment and plan: SC heparin (9) Discharge planning issues: Status: Acute Assessment and plan: Full code continues to require hospitalization Plan to d/c after ascites studies available and stabilized. Subjective Subjective Patient reports: tolerating a regular diet and afebrile; denies diarrhea, nausea, vomiting or shortness of breath Interval history since last seen: He states he is anxious. Exam Narrative Exam Narrative: General: Lying in bed. Appears somewhat angry. Appears older than his stated age. HEENT: Sclera clear MMM Heart: RRR, no murmur Lungs: Diminished breath sounds B Abdomen: soft, RLQ dressing saturated with ascites fluid. Extremities: + 1 BLE edema. Neuro: + bilateral temor of hands. No focal motor weakness Objective Last Vital Signs Temp 36.9 C 06/16/22 09:30 Pulse 68 06/16/22 10:00 Resp 12 06/16/22 11:10 BP 106/71 06/16/22 10:00 Pulse Ox 96 06/16/22 11:10 Laboratory Results - last 24 hr 06/15/22 06/16/22 06/16/22 12:40 05:48 05:48 WBC 6.25 RBC 3.82 L Hgb 12.7 L Hct 35.5 L MCV 93 MCH 33.2 H MCHC 35.8 RDW 11.3 L Plt Count 144 MPV 10.1 Immature Gran % 0.3 Neutrophils % 83.5 Lymphocytes % 9.0 Monocytes % 7.0 Eosinophils % 0.2 Basophils % 0.0 Nucleated RBC % 0.0 Absolute Neutrophils 5.22 Absolute Lymphocytes 0.56 L Absolute Monocytes 0.44 Absolute Eosinophils 0.01 Absolute Basophils 0.00 PT INR Sodium 129 L Potassium 3.6 Chloride 94 L Carbon Dioxide 27.0 Anion Gap 8.0 BUN 5 L Creatinine 0.6 L Est GFR (CKD-EPI 2020) 113.29 Glucose 164 H Hemoglobin A1c Calcium 7.7 L Magnesium 0.8 L Iron TIBC Transferrin % Sat Ferritin Total Bilirubin 1.2 H Conjugated Bilirubin 0.6 H AST 35 ALT 27 Alkaline Phosphatase 97 Total Protein 6.9 Albumin 3.1 L Vitamin B12 Folate Fluid Source Peritoneal Fluid Color Yellow Fluid Clarity Clear Fluid WBC 422 Fld Polynuclear WBCs % 6 Fluid Mononuclear Cell 94 06/16/22 06/16/22 06/16/22 05:48 05:48 05:48 WBC RBC Hgb Hct MCV MCH MCHC RDW Plt Count MPV Immature Gran % Neutrophils % Lymphocytes % Monocytes % Eosinophils % Basophils % Nucleated RBC % Absolute Neutrophils Absolute Lymphocytes Absolute Monocytes Absolute Eosinophils Absolute Basophils PT 15.8 H INR 1.6 H Sodium Potassium Chloride Carbon Dioxide Anion Gap BUN Creatinine Est GFR (CKD-EPI 2020) Glucose Hemoglobin A1c 5.2 Calcium Magnesium Iron TIBC Transferrin % Sat Ferritin 651 H Total Bilirubin Conjugated Bilirubin AST ALT Alkaline Phosphatase Total Protein Albumin Vitamin B12 837 Folate 8.7 Fluid Source Fluid Color Fluid Clarity Fluid WBC Fld Polynuclear WBCs % Fluid Mononuclear Cell 06/16/22 05:48 WBC RBC Hgb Hct MCV MCH MCHC RDW Plt Count MPV Immature Gran % Neutrophils % Lymphocytes % Monocytes % Eosinophils % Basophils % Nucleated RBC % Absolute Neutrophils Absolute Lymphocytes Absolute Monocytes Absolute Eosinophils Absolute Basophils PT INR Sodium Potassium Chloride Carbon Dioxide Anion Gap BUN Creatinine Est GFR (CKD-EPI 2020) Glucose Hemoglobin A1c Calcium Magnesium Iron 43 L TIBC 165 L Transferrin % Sat 26 Ferritin Total Bilirubin Conjugated Bilirubin AST ALT Alkaline Phosphatase Total Protein Albumin Vitamin B12 Folate Fluid Source Fluid Color Fluid Clarity Fluid WBC Fld Polynuclear WBCs % Fluid Mononuclear Cell PAWSS Have you Been Recently Intoxicated or Drunk Within the Last 30 days?: No Have you Ever Experienced Previous Episodes of Alcohol Withdrawal?: No Have you ever Experienced Withdrawal Seizures?: No Have you ever Experienced Delirium Tremens(DT)s?: No Have you ever undergone Alcohol Rehabilitation Treatment (i.e, inpt ot outpatient treatment programs)?: No Have you ever Experienced Blackouts?: No Have you ever Combined Alcohol with other Downers within the last 90 days?: No Have you ever Combined Alcohol with any other Substance of Abuse during the last 90 days?: No Positive Blood Alcohol level on Presentation? [PCS.BAL]: No Evidence of Increased Autonomic Activity (i.e. HR>120, tremor, sweating, agitation, nausea)?: No Result: 0
--- NOTE | 2022-06-16 14:52 | DSE_ITS ---
Date of service: 06/16/22 Time of Service: 14:52 DS: Diagnosis Discharge Diagnosis (1) Abdominal ascites: Start date: 06/16/22 Start time: 14:53 Status: Acute (2) Acute exacerbation of chronic obstructive pulmonary disease (COPD): Status: Acute (3) Alcoholism: Status: Chronic (4) Acute hypokalemia: Status: Acute (5) Hypomagnesemia: Status: Acute (6) Acute hyponatremia: Status: Acute (7) Chronic anemia: Status: Acute (8) DVT prophylaxis: Status: Acute (9) Discharge planning issues: Status: Acute Discharge Plan Disposition Patient Disposition: HOME Condition: Poor Discharge Details Reason For Visit: Alcohilic Cirrhosis with Ascites, Hyponatremia.... Admit Date/Time: 06/14/22 23:46 Admit Provider: Asad El Attending Provider: Asad El Primary Care Provider: Asad El Hospital Course Hospital Course: This is a 56-year-old male patient with past medical history of chronic pain on methadone for which he sees his PCP but also COPD with active tobacco use, hypertension, diabetes diet controlled, hyperlipidemia and daily alcohol use with beer which he has not discussed with his PCP.? He has not wanted to have routine follow-up or preventive care.? He has not discussed his drinking with his PCP because he thought that he was not drinking that much.? And does not understand why he is having problems with abdominal swelling and ascites at this time.? He was seen in the ED at [facility] 05/23/2022 with work-up revealing ascites resulting in 3 L of fluid removed with paracentesis and lab evaluation with imaging revealing probable cirrhosis with ascites and electrolyte abnormalities associate with chronic alcohol use.? He was to be admitted at that time but signed out AMA.? He returns with a several day history of gradually increasing abdominal girth and bloating with discomfort from the swelling as well as shortness of breath especially with lying down weight feels as if he is being water boarded.? He does have chronic cough with sputum production but this is worsened recently.? He denies any fever or hemoptysis.? He is moving his bowels well and denies any abdominal pain other than the tense abdomen swelling, he denies fever or chills and no redness over his abdomen.? He denies any significant peripheral edema.? His abdominal discomfort is mostly the sensation of stretching.? In the ED this admission the patient also almost left AMA when he went outside to smoke but was willing to stay for treatment and possible repeat therapeutic paracentesis as well as work on further evaluation with diuresis.? With his cough and sputum production it appears he may be having also exacerbation of COPD with significant sputum production increase and this will be treated as well.? Electrolyte amount will be treated with repletion as needed with IV.? He will be on CIWA protocol because of his daily drinking. He underwent paracentesis with 4L of fluid removed. The ascites fluid was clear, yellow with a WBC count of 422 wo a left shift. Protein and glucose analysis pending at time of d/c. He had no elevated WBC count, fever or abd tenderness that would suggest SBP. He did start to score on CIWA monitoring; up to a 20. He was transferred to the ICU. Pt stated he did not want to withdraw from alcohol and he had no intention of stopping alcohol intake once home. He has no interest in any type of alcohol treatment program. He will d/c to home with PCP follow up and lab monitoring, including magnesium level. A pressure dressing placed at paracentesis site d/t ongoing drainage of ascites fluid. A lengthy discussion with the patient in the presence of his [id number] regarding the likely poor outcome if he continues to drink alcohol. He shows insight regarding the likely outcome but this does not dissuade him from deciding to leave and continue to drink. PCP follow up in 1-2 weeks. Home Meds and New Rx's Prescriptions: New folic acid 1 mg Tablet 1 mg PO QAM Qty: 0 0RF prednisone 20 mg Tablet 40 mg PO DAILY 3 Days Qty: 6 0RF Rx Instructions: Take first dose on 06/17/22 spironolactone [Aldactone] 50 mg tablet 50 mg PO BID Qty: 30 0RF thiamine mononitrate (vit B1) [Vitamin B-1 (mononitrate)] 100 mg Tablet 100 mg PO QAM Qty: 0 0RF doxycycline hyclate 100 mg capsule 100 mg PO BID Qty: 8 0RF Rx Instructions: First dose tonight, 06/16/22 magnesium 200 mg tablet 400 mg PO DAILY Qty: 60 0RF Continued metoprolol succinate 50 mg tablet extended release 24 hr 50 mg PO DAILY Label Comments: TAKE ONE TABLET BY MOUTH EVERY DAY Atorvastatin Calcium 10 MG tablet 10 mg PO DAILY naloxone [Narcan] 4 MG spray,non-aerosol 4 mg NS PRN Qty: 2 pantoprazole [Protonix] 40 mg tablet,delayed release (DR/EC) 40 mg PO DAILY Qty: 90 3RF methadone 10 mg tablet 10 mg PO QID Label Comments: TAKE ONE TABLET BY MOUTH FOUR TIMES A DAY DIRECTED. EARLIEST FILL DATE 03/19/2021. amlodipine 10 mg tablet 10 mg PO DAILY Label Comments: TAKE ONE TABLET BY MOUTH EVERY DAY albuterol sulfate [ProAir HFA] 90 mcg/actuation HFA aerosol inhaler 2 inh INHALATION QID PRN Label Comments: INHALE 2 PUFFS BY MOUTH EVERY 4 HOURS NEEDED FOR 30 DAYS budesonide-formoterol [Symbicort] 160-4.5 mcg/actuation HFA aerosol inhaler 1 inh INHALATION PRN PRN (Reason: Shortness Of Breath Or Wheezing) Label Comments: INHALE TWO PUFFS BY MOUTH TWICE A DAY Held losartan 25 mg tablet 25 mg PO DAILY Hold Instructions: Until PCP follow up. Held d/t low BP Label Comments: TAKE ONE TABLET BY MOUTH EVERY DAY hydrochlorothiazide 25 mg tablet 25 mg PO DAILY Hold Instructions: Until PCP follow up and repeat lab results available. Label Comments: TAKE ONE TABLET BY MOUTH EVERY DAY Discharge Instructions Additional Instructions: Return to the Emergency Department if a fever or worsening abdominal pain develops. Activity:: Activity as Tolerated Equipment/Supplies:: No Equipment Needed Diet:: As Tolerated Discharge Orders Discharge Orders: Discharge Order (Routine); Ordered 06/16/22 Ordered By: Raymundo Hancock Other Ambulatory Orders: Complete Blood Count w/Diff (Routine) Timeframe: 5 Days Location: None Selected Ordered By: Raymundo Hancock Comprehensive Metabolic Panel (Routine) Timeframe: 5 Days Location: None Selected Ordered By: Raymundo Hancock Magnesium (Routine) Timeframe: 5 Days Location: None Selected Ordered By: Raymundo Hancock DS: Summary Time Spent with Patient providing and/or coordinating discharge services: Greater than 30 minutes Status at Discharge Functional status at discharge: independent ambulation Overall status at discharge: patient is not back to baseline Mental Status: other (mild confusion) Speech and Movement: speech clear (poor volume) Mood: dysthymic mood and other (mild confusion) Affect: blunted Exam Narrative Exam Narrative: General: Lying in bed. Appears somewhat angry. Appears older than his stated age. HEENT: Sclera clear MMM Heart: RRR, no murmur Lungs: Diminished breath sounds B Abdomen: soft, RLQ dressing saturated with ascites fluid. Extremities: + 1 BLE edema. Neuro: + bilateral temor of hands. No focal motor weakness Psych Mental Status: other (mild confusion) Speech and Movement: speech clear (poor volume) Mood: dysthymic mood and other (mild confusion) Affect: blunted DS: Data Vitals/I&O Vitals and I&O: Vital Signs Temperature 36.9 C 06/16/22 12:30 Temperature Source Temporal Artery Scan 06/16/22 12:30 Pulse 68 06/16/22 10:00 Pulse Rhythm Regular 06/16/22 00:00 Pulse 66 06/16/22 11:10 Respiratory Rate 12 06/16/22 12:30 Respiratory Effort 06/16/22 12:30 Respiratory Depth Shallow 06/16/22 12:30 Respiratory Pattern Normal 06/16/22 12:30 Blood Pressure 106/71 06/16/22 10:00 Blood Pressure Mean 80 06/16/22 10:00 Blood Pressure Position Supine 06/16/22 12:30 Pulse Oximetry 96 06/16/22 12:30 Oxygen Delivery Method Room Air 06/16/22 09:30 Oxygen Flow Rate 0 06/16/22 09:30 Pain Level 0 06/16/22 12:30 Comment 06/15/22 02:50 Intake & Output 06/15/22 06/16/22 06/16/22 23:59 11:59 23:59 Intake Total 1400 / 3430 Output Total 325 / 325 Balance 1400 / 2830 -325 / -325 Weight 71.3 kg Intake: IV 200 / 1350 Oral 1200 / 2080 Output: Urine 325 / 325 Other: Urine Color Yellow Straw Urine Appearance Clear Urine Odor Normal Voiding Methods Urinal Data Completed and Pending Labs on day of discharge: Labs from last 24 hours 06/16/22 06/16/22 06/16/22 14:25 05:48 05:48 WBC RBC Hgb Hct MCV MCH MCHC RDW Plt Count MPV Immature Gran % Neutrophils % Lymphocytes % Monocytes % Eosinophils % Basophils % Nucleated RBC % Absolute Neutrophils Absolute Lymphocytes Absolute Monocytes Absolute Eosinophils Absolute Basophils PT INR Sodium Potassium Chloride Carbon Dioxide Anion Gap BUN Creatinine Est GFR (CKD-EPI 2020) Glucose Hemoglobin A1c Calcium Magnesium Iron 43 L TIBC 165 L Transferrin % Sat 26 Ferritin 651 H Total Bilirubin Conjugated Bilirubin AST ALT Alkaline Phosphatase Total Protein Albumin Vitamin B12 837 Folate 8.7 Fluid Type Pending Fluid LDH Pending 06/16/22 06/16/22 06/16/22 05:48 05:48 05:48 WBC 6.25 RBC 3.82 L Hgb 12.7 L Hct 35.5 L MCV 93 MCH 33.2 H MCHC 35.8 RDW 11.3 L Plt Count 144 MPV 10.1 Immature Gran % 0.3 Neutrophils % 83.5 Lymphocytes % 9.0 Monocytes % 7.0 Eosinophils % 0.2 Basophils % 0.0 Nucleated RBC % 0.0 Absolute Neutrophils 5.22 Absolute Lymphocytes 0.56 L Absolute Monocytes 0.44 Absolute Eosinophils 0.01 Absolute Basophils 0.00 PT 15.8 H INR 1.6 H Sodium Potassium Chloride Carbon Dioxide Anion Gap BUN Creatinine Est GFR (CKD-EPI 2020) Glucose Hemoglobin A1c 5.2 Calcium Magnesium Iron TIBC Transferrin % Sat Ferritin Total Bilirubin Conjugated Bilirubin AST ALT Alkaline Phosphatase Total Protein Albumin Vitamin B12 Folate Fluid Type Fluid LDH 06/16/22 05:48 WBC RBC Hgb Hct MCV MCH MCHC RDW Plt Count MPV Immature Gran % Neutrophils % Lymphocytes % Monocytes % Eosinophils % Basophils % Nucleated RBC % Absolute Neutrophils Absolute Lymphocytes Absolute Monocytes Absolute Eosinophils Absolute Basophils PT INR Sodium 129 L Potassium 3.6 Chloride 94 L Carbon Dioxide 27.0 Anion Gap 8.0 BUN 5 L Creatinine 0.6 L Est GFR (CKD-EPI 2020) 113.29 Glucose 164 H Hemoglobin A1c Calcium 7.7 L Magnesium 0.8 L Iron TIBC Transferrin % Sat Ferritin Total Bilirubin 1.2 H Conjugated Bilirubin 0.6 H AST 35 ALT 27 Alkaline Phosphatase 97 Total Protein 6.9 Albumin 3.1 L Vitamin B12 Folate Fluid Type Fluid LDH 06/16/22 14:25 Peritoneal Body Fluid Culture - Pending 06/16/22 14:25 Peritoneal Gram Stain - Pending Preliminary micro results at discharge 06/16/22 14:25 Body Fluid Culture - Pending Peritoneal Gram Stain - Pending [facility] All Active Problems Alcoholic cirrhosis of liver with ascites (Acute) Discharge planning issues (Acute) DVT prophylaxis (Acute) Chronic anemia (Acute) Acute exacerbation of chronic obstructive pulmonary disease (COPD) (Acute) Acute hyponatremia (Acute) Acute hypokalemia (Acute) Hypomagnesemia (Acute) Abdominal ascites (Acute) Alcoholism (Chronic) Weakness (Acute) Normal colonoscopy (Acute) Bile reflux gastritis (Acute) Hiatal hernia with GERD (Acute) Emphysematous bleb of lung (Acute) Diabetes (Chronic) Lymphadenopathy (Acute) Pharyngoesophageal dysphagia (Acute) Elevation of levels of liver transaminase levels (Acute) SOB (shortness of breath) on exertion (Acute) Preop cardiovascular exam (Acute) Abnormal barium swallow (Acute) Smoker (Acute) Screening for malignant neoplasm of prostate (Acute) Injury of hand (Acute) plates and screws Chronic diarrhea (Acute) Night sweats (Acute 03/2021) Degeneration of lumbosacral intervertebral disc (Acute) Cholelithiasis without obstruction (Acute) Infection of tooth (Acute) Chronic obstructive lung disease (Chronic) Laryngeal spasm (Acute) Chronic post-traumatic headache (Acute) Chronic fatigue syndrome (Acute) Depressive disorder (Chronic) Hyperlipemia (Acute) Medical History Encounter for medication monitoring Esophagitis Gastritis History of esophageal reflux Surgical History Appendectomy Colonoscopy - MAC EGD - MAC Fracture, Open Treatment History of colonoscopy (~05/04/21) with bx History of esophagogastroduodenoscopy (EGD) (~05/04/21) Rotator Cuff Repair Bilateral Vasectomy Family History Father Cirrhosis of liver Diabetes Melitus Social History Smoking/Tobacco Use Status: Current every day Tobacco Type: cigarettes Years smoked: 30 Tobacco: How many years used: 30 Smoking risk assessment performed?: Yes Alcohol Intake: current Alcohol Intake frequency: 3 or more drinks per day Alcohol type: beer Drug use: Current Sobriety 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 Pets and animals: Yes Pets and animals: dog(s) Current gender identity: male Do you feel safe at home: Yes Do you feel safe in your relationship?: Yes
--- NOTE | 2022-06-16 15:23 | CMDISCH_ITS ---
- If Service Date Differs Date of service: 06/16/22 Time of Service: 15:23 LACE Index Scoring Tool - Questions: Length of Stay (in days): 2 Acuity (Admit via E.D.?): Yes Comorbidities: Chronic Pulmonary Disease E.D. Visits: 3 - Answers: Total Score: 10 Risk of Readmission: High Risk Care Management Discharge Reason for Hospitalization: Acute hyponatremia, Acute hypokalemia, Hypomagnesemia, Abdominal ascites Discharge Plan: Franklin is discharged home via private vehicle with family. New RX's are printed and handed to pt prior to discharge. Patient declines increased community support such as [facility] services or Recovery Center. Franklin is encouraged to call his PCP, Friday to schedule a follow up appointment next week. Franklin is also encouraged to return to the Emergency Department if he develops a fever or worsening abdominal pain. Patient/Family Education Needs: Review discharge instructions, limitations, medications and plan to follow up closely with community providers. Discuss ask me three. Services Needed at Discharge: Home Health Care Services (Patient declines services.)
[2022-06-16 16:07] LABS: Glucose, Fluid 124 mg/dL (See Note)
[2022-06-19 09:49] LABS: Amylase, BF 26 U/L; Protein,Total, BF 3.3 g/dL
[2022-06-19 10:18] LABS: Lactate Dehydrogenase (LD), BF 117 U/L
== END 2022-06-16 15:50 | disposition home or self-care (01) | DRG 433 ==
LOC: ER 06-15 00:16 → MS 06-15 00:35 → ICU 06-16 09:33
PROVIDERS: Internal Medicine; Admitting Provider Family Medicine; Emergency Provider Physician Assistant; PCP Family Medicine; Visit Provider Family Medicine
DX: K70.31 Alcoholic cirrhosis of liver with ascites (principal); E87.1 Hypo-osmolality and hyponatremia; J44.1 Chronic obstructive pulmonary disease with (acute) exacerbation; F10.239 Alcohol dependence with withdrawal, unspecified; E87.6 Hypokalemia; E83.42 Hypomagnesemia; F17.210 Nicotine dependence, cigarettes, uncomplicated; I10 Essential (primary) hypertension; E11.9 Type 2 diabetes mellitus without complications; E78.5 Hyperlipidemia, unspecified; F10.20 Alcohol dependence, uncomplicated; K21.9 Gastro-esophageal reflux disease without esophagitis; K44.9 Diaphragmatic hernia without obstruction or gangrene; K29.60 Other gastritis without bleeding; K52.9 Noninfective gastroenteritis and colitis, unspecified; K80.20 Calculus of gallbladder without cholecystitis without obstruction; F32.A Depression, unspecified; G89.29 Other chronic pain; F11.90 Opioid use, unspecified, uncomplicated; G44.329 Chronic post-traumatic headache, not intractable; D64.9 Anemia, unspecified; F10.229 Alcohol dependence with intoxication, unspecified; Y90.7 Blood alcohol level of 200-239 mg/100 ml
CPT/HCPCS: 49082; 36415; 80048; 80053; 80076; 80307; 83690; 87635; 93005; 94640; 96361; 96365; 99285; 71046; 80320; 81003; 81373; 82150; 82607; 82728; 82746; 83036; 83540; 83550; 83615; 83735; 83880; 84100; 84157; 84439; 84443; 84484; 85025; 85610; 87070; 87205; 89051; 93010; 99223; 99233; 99239; J0696; J1644; J2405; J2930; J3475; J3490; J7512; J7620

== ENCOUNTER 2022-06-17 10:26 | Inpatient (IN) | payer MEDICAID, SELFPAY ==
[2022-06-17] VITALS (68 sets, daily range): BP systolic 90–110; BP diastolic 54–69; PULSE 69–108; RESP 1–27; TEMP 36.5–36.7; O2SAT 94–100
--- NOTE | 2022-06-17 | DI.RAD_ITS ---
Exam(s) XR CHEST 2V PA LATERAL EXAM: XR CHEST 2V PA LATERAL CLINICAL HISTORY: Elevated WBC count and lactate TECHNIQUE: 2D digital imaging was performed. COMPARISON: CR CHEST 2 VIEWS PA,LAT from 06/23/[address] CHEST/ABD/PEL WO from 05/23/2022 CR,XR XR CHEST 2V PA LATERAL from 06/14/2022 FINDINGS: HEART: Normal size. Aorta: PULMONARY VASCULATURE: Normal. LUNGS: Clear. PLEURAL SPACE: No pleural effusion or pneumothorax. BONE:Unremarkable for age. IMPRESSION: No acute abnormality. DATA REPOSITORY: RADIATION DOSE DELIVERED:
--- NOTE | 2022-06-17 10:59 | ED.GENADUL_ITS ---
Discharge Plan Disposition Patient Disposition: [facility] INPATIENT Condition: Stable Discharge Details Chief Complaint: Abd Prob Clinical Impression: Abdominal ascites, Acute exacerbation of chronic obstructive pulmonary disease (COPD), Abdominal pain Admit Date/Time: 06/17/22 13:19 Admit Provider: Raymundo Hancock Attending Provider: Raymundo Hancock Primary Care Provider: Asad El ED Provider: Holly De La Rosa Discharge Data Discharge Date/Time-TO BE ENTERED AT DEPARTURE: 06/17/22 14:14 Medical Decision Making Yosi patient is a pleasant 66-year-old, male with past medical history pertinent for alcoholic cirrhosis, COPD, hypertension, hiatal hernia, diabetes, active smoker, depression, presented today for reevaluation continued management of his ascites. Patient was discharged yesterday but he has been recommended to go to the ICU for continued care, particularly for alcohol withdrawal. However, patient did not seem interested at that time to stop drinking. I am not completely clear after my discussion with the patient if he did take his newly prescribed medication. He denies any fevers or chills. States that he has chronic chest pain with no acute change in this. Also has chronic shortness of breath that she attributes to COPD and active smoking. No change in that. Has had some yellowish tinged fluid from his recent paracentesis. They did take out 4 L yesterday with no evidence of spontaneous bacterial peritonitis at that time. Patient was being treated for with alcohol induced ascites as well as COPD exacerbation. Patient left last night to take care of his dog. States that he has had 2 beers since the time of discharge yesterday. On exam, patient appears chronically ill. He does not appear to be in any respiratory distress and speaking clearly. 98% on room air. Slightly hypert ensive at 107/65. Auscultation of the lungs pertinent for wheezing particularly in the right lower lobes. Normal cardiac exam. Of note, patient does not want typically hypotensive. His abdomen is diffusely tender. Dressing is applied over area of recent drainage with no erythema or warmth. He does have a 1+ pitting edema bilaterally. Concerned that the patient has persistent and progressive symptoms associated with continued alcohol intake. Patient was drinking on the way here. I am concerned that he may be acutely intoxicated. He did have wheezing noted on exam, will give a DuoNeb. Have to feel the patient would benefit from further diuresis will give 20 mg IV Lasix. Will obtain baseline blood work, COVID testing and speak with hospitalist regarding their plan for continued admission. At this time, patient is now more amenable to alcohol cessation. His abdomen is much more tender, per his report, than recent admission. Considered SBP. Patient did have imaging on recent evaluation, showed ascites. Spoke with hospitalist, we discussed his recent admission and course. Patient is now refusing ETOH cessation. 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 Patient imrpved after DuoNeb. Labs reviewed, WBC is elevated as it lactate. Concerned for SBP. Evaluated with US and he has no sigfnicant fluid to tap for diagnostic evaluation. Started patient on broad spectrum abx. Discussed my concerns with [facility] patient. In particular, we discussed ETOH cessation and admission for possible SBP. He is in agreement with plan for admission. Has poor insight to his ETOH and it's correlation with his current disease process. Consulted with hospitalist who agrees with admission, continued care for possible SBP. HPI General Date/Time Provider Initiated Documentation: 06/17/22 10:59 . Limitations to Documentation: no limitations . Information obtained by: patient, RN notes reviewed and old records reviewed . History of Present Illness 56 year old M presents to the emergency department with the chief complaint of abdominal pain, continued management of ascites, described as moderate, Quality is described as aching, and is localized to the abdomen. Patient reports no radiation. Patient started experiencing this day(s) and it has been constant (has increased over the past 24 hours). No relieving factors improve symptom(s), No exacerbating factors reported . Patient notes loss of appetite, malaise and shortness of breath (chronic, no acute change); denies chest pain, cough, diaphoresis, fever/chills, headaches, nausea/vomiting and rash. Patient did receive the following treatments prior to arrival, none Related Data Home Medications Medication Instructions Recorded Confirmed Atorvastatin Calcium 10 mg PO DAILY 02/12/18 06/17/22 naloxone 4 mg/actuation nasal 4 mg NS PRN #2 sprays 02/12/18 06/17/22 spray (Narcan) albuterol sulfate 90 mcg/actuation 2 inh inhalation QID PRN 04/04/21 06/17/22 aerosol inhaler (ProAir HFA) amlodipine 10 mg tablet 10 mg PO DAILY 04/04/21 06/17/22 hydrochlorothiazide 25 mg tablet 25 mg PO DAILY 04/04/21 06/17/22 losartan 25 mg tablet 25 mg PO DAILY 04/04/21 06/17/22 methadone 10 mg tablet 10 mg PO QID 04/04/21 06/17/22 metoprolol succinate 50 mg 50 mg PO DAILY 04/23/21 06/17/22 tablet,extended release 24 hr pantoprazole 40 mg tablet,delayed 40 mg PO DAILY #90 tabs 07/09/21 06/17/22 release (Protonix) budesonide-formoterol HFA 160 1 inh inhalation PRN PRN Shortness 05/06/22 0 06/17/22 mcg-4.5 mcg/actuation aerosol Of Breath Or Wheezing inhaler (Symbicort) doxycycline hyclate 100 mg capsule 100 mg PO BID #8 caps 06/16/22 06/17/22 folic acid 1 mg tablet 1 mg PO QAM #0 tabs 06/16/22 06/17/22 magnesium 200 mg tablet 400 mg PO DAILY #60 tabs 06/16/22 06/17/22 spironolactone 50 mg tablet 50 mg PO BID #30 tabs 06/16/22 06/17/22 (Aldactone) thiamine mononitrate (vit B1) 100 100 mg PO QAM #0 tabs 06/16/22 06/17/22 mg tablet (Vitamin B-1 (mononitrate)) Previous Rx's Medication Instructions Recorded pantoprazole 40 mg tablet,delayed 40 mg PO DAILY #90 tabs 07/09/21 release (Protonix) doxycycline hyclate 100 mg capsule 100 mg PO BID #8 caps 06/16/22 folic acid 1 mg tablet 1 mg PO QAM #0 tabs 06/16/22 magnesium 200 mg tablet 400 mg PO DAILY #60 tabs 06/16/22 spironolactone 50 mg tablet 50 mg PO BID #30 tabs 06/16/22 (Aldactone) thiamine mononitrate (vit B1) 100 100 mg PO QAM #0 tabs 06/16/22 mg tablet (Vitamin B-1 (mononitrate)) Allergies Allergy/AdvReac Type Severity Reaction Status Date / Time metformin Allergy Diarrhea Verified 06/17/22 10:44 lisinopril AdvReac Severe Swelling/Ed Verified 06/17/22 10:44 jessica General Stated Complaint: Abd Prob PEDRITO: 3 Review of Systems Constitutional Constitutional: Reports as per HPI, Denies chills, Denies fever(s) and Denies headache(s) ENT Ears, Nose, Mouth, and Throat: Denies headache(s) Cardiovascular Cardiovascular: Reports as per HPI and Denies chest pain Respiratory Respiratory: Reports as per HPI and Denies cough Gastrointestinal Gastrointestinal: Reports as per HPI Genitourinary Genitourinary: Denies system reviewed and no additional complaints, except as documented (patient denies any change in urinary habits) Musculoskeletal Musculoskeletal: Reports as per HPI and Denies back pain Integumentary/Breasts Skin/Breast: Reports as per HPI and Denies rash Neurologic Neurologic: Reports as per HPI and Denies headache(s) PFSH All Active Problems (Updated 06/27/22 @ 09:24 by RAYMUNDO Sparks) Abdominal pain (Acute) Hyponatremia (Acute) Fatty liver due to alcoholism (Acute) Alcoholic hepatitis (Acute) Alcoholic cirrhosis of liver with ascites (Acute) Chronic anemia (Acute) Acute exacerbation of chronic obstructive pulmonary disease (COPD) (Acute) Acute hyponatremia (Acute) Hypomagnesemia (Acute) Abdominal ascites (Acute) Normal colonoscopy (Acute) Bile reflux gastritis (Acute) Hiatal hernia with GERD (Acute) Emphysematous bleb of lung (Acute) Diabetes (Chronic) Lymphadenopathy (Acute) Pharyngoesophageal dysphagia (Acute) Elevation of levels of liver transaminase levels (Acute) SOB (shortness of breath) on exertion (Acute) Preop cardiovascular exam (Acute) Abnormal barium swallow (Acute) Smoker (Acute) Screening for malignant neoplasm of prostate (Acute) Injury of hand (Acute) plates and screws Chronic diarrhea (Acute) Night sweats (Acute 03/2021) Degeneration of lumbosacral intervertebral disc (Acute) Cholelithiasis without obstruction (Acute) Infection of tooth (Acute) Chronic obstructive lung disease (Chronic) Laryngeal spasm (Acute) Chronic fatigue syndrome (Acute) Depressive disorder (Chronic) Hyperlipemia (Acute) Medical History Chronic post-traumatic headache Encounter for medication monitoring Esophagitis Gastritis History of esophageal reflux Surgical History Appendectomy Colonoscopy - MAC EGD - MAC Fracture, Open Treatment History of colonoscopy (~05/04/21) with bx History of esophagogastroduodenoscopy (EGD) (~05/04/21) Rotator Cuff Repair Bilateral Vasectomy Family History Father Cirrhosis of liver Diabetes Melitus Social History Smoking/Tobacco Use Status: Current every day Tobacco Type: cigarettes Years smoked: 30 Tobacco: How many years used: 30 Smoking risk assessment performed?: Yes Alcohol Intake: current Alcohol Intake frequency: 3 or more drinks per day Alcohol type: beer Drug use: Daily 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 Pets and animals: Yes Pets and animals: dog(s) Current gender identity: male Do you feel safe at home: Yes Do you feel safe in your relationship?: Yes Exam Const General: cooperative, comfortable, no acute distress, well developed, anxious and ill appearing chronically Nutritional Appearance: average body habitus and well nourished Orientation: alert and awake HENMT Head: normal to inspection Mouth: mucous membranes dry (appears dry) Resp Effort & Inspection: normal respiratory effort, able to speak in complete sentences and no respiratory distress Auscultation: no rales, no rhonchi and wheezes expiratory wheezes and scattered wheezes Cardio Rate: regular rate Rhythm: regular rhythm Heart Sounds: S1 normal and S2 normal GI Inspection: normal to inspection (has 2 wounds, consistent with paracentesis, no erythema, warmth), no abdominal wall ecchymosis, non-distended, no visible herniation and other (Scant yellow fluid drainage from wounds) Palpation: soft, no hepatosplenomegaly, not firm, guarding (Periumbilical), no hernias, not rigid and tender (diffusely tender) Percussion: normal to percussion Auscultation: hypoactive bowel sounds Back/Spine/Pelvis Back: no CVA tenderness Skin Wounds: wounds noted (RLQ healign puncture sites ) Neuro General: patient alert and patient awake Cognition: normal cognition Speech: speech normal Gait: normal gait Psych Appearance: grossly normal and well kempt Mental Status: mental status grossly normal Speech and Movement: agitated Affect: anxious affect Attitude: guarded Course Vital Signs Vital signs: Vital Signs Temperature 36.6 C 06/17/22 10:41 Pulse 78 06/17/22 10:41 Respiratory Rate 18 06/17/22 10:41 Blood Pressure 107/65 06/17/22 10:41 Pulse Oximetry 98 06/17/22 10:41 Temperature 36.6 C 06/17/22 10:41 Temperature Source Temporal Artery Scan 06/17/22 10:41 Pulse 78 06/17/22 10:41 Respiratory Rate 18 06/17/22 10:41 Respiratory Effort 06/17/22 10:56 Blood Pressure 107/65 06/17/22 10:41 Blood Pressure Position Sitting 06/17/22 10:41 Pulse Oximetry 98 06/17/22 10:41 Oxygen Delivery Method Room Air 06/17/22 10:41 Oxygen Flow Rate 0 06/17/22 10:41 PAWSS Have you Been Recently Intoxicated or Drunk Within the Last 30 days?: Yes Have you Ever Experienced Previous Episodes of Alcohol Withdrawal?: No Have you ever Experienced Withdrawal Seizures?: No Have you ever Experienced Delirium Tremens(DT)s?: No Result: 1
[2022-06-17] MEDS: Furosemide 20 MG/2 ML VIAL IVP (11:38)
[2022-06-17] MEDS: Albuterol/Ipratropium 3 ML UPD VIAL UPD ×3 (11:38→20:51)
[2022-06-17 11:43] LABS: Abs Immature Grans 0.06 10^3/uL (0.0-0.06); Absolute Basophil Count 0.03 10^3/uL (0.0-0.2); Absolute Eosinophil Count 0.06 10^3/uL (0.0-0.7); Absolute Lymphocyte Count 1.64 10^3/uL (1.2-3.4); Absolute Monocyte Count 0.97 10^3/uL (0.1-0.8); Absolute Neutrophil Count 9.95 10^3/uL (1.2-6.7); Basophils % 0.2; Eosinophils % 0.5; HCT 37.8 % (40.0-50.0); HGB 13.3 g/dL (13.5-17.5); Immature Grans % 0.5; Lymphocytes % 12.9; MCH 33.8 pg (27.0-33.0); MCHC 35.2 % (32.0-36.0); MCV 96 fL (80-95); MPV 9.9 fL (8.0-11.0); Monocytes % 7.6; Neutrophils % 78.3; Platelet Count 210 10^3/uL (130-400); RBC 3.94 10^6/uL (4.36-5.78); RDW 11.9 % (11.8-14.1); RDW-SD 41.7 fL; WBC 12.71 10^3/uL (4.4-10.8)
[2022-06-17 12:00] LABS: Lactate 2.8 mmol/L (0.6-1.4)
[2022-06-17 12:11] LABS: ALT 62 U/L (16-63); AST 124 U/L (15-37); Albumin 3.4 g/dL (3.4-5.0); Alkaline Phosphatase 104 U/L (46-116); Anion Gap 13.7 mmol/L (3-11); BUN 3 mg/dL (7-18); Bilirubin, Total 0.9 mg/dL (0.2-1.0); CO2 23.3 mmol/L (21.0-32.0); CREATININE 0.6 mg/dL (0.70-1.30); Chloride 90 mmol/L (98-107); ETHANOL BLOOD 92.4 mg/dL (<10); Estimated GFR 113.29 (mL/min/1.73m2); Glucose 163 mg/dL (74-106); INR 1.5 (0.9-1.1); Lipase 118 U/L (73-393); Magnesium 1.1 mg/dL (1.8-2.4); PTT Activated 28.3 sec (21.0-27.5); Potassium 3.2 mmol/L (3.5-5.1); Prothrombin Time 14.7 sec (9.3-11.0); Sodium 127 mmol/L (136-145); Total Protein 7.3 g/dL (6.4-8.2); Troponin I < 50 ng/L (<or=60)
[2022-06-17 12:29] LABS: COVID-19 PCR Negative (Negative); Influenza A PCR Negative (Negative); Influenza B PCR Negative (Negative); RSV PCR Negative (Negative)
[2022-06-17] MEDS: POTASSIUM CHLORIDE 20 MEQ/100 ML BAG 50 MEQ IVPB (12:37)
[2022-06-17 12:38] LABS: Source Nasopharynx
--- NOTE | 2022-06-17 12:48 | DI.US_ITS ---
Exam(s) US ABDOMEN LIMITED EXAM: US ABDOMEN LIMITED CLINICAL HISTORY: discomfort, RUQ please TECHNIQUE: Ultrasound abdomen performed using standard protocol. COMPARISON: CT CT NECK CHEST ABD PEL W from 04/04/[address] CHEST/ABD/PEL WO from 05/23/2022 FINDINGS: LIVER: Enlarged at 21 cm in length. Increased liver echogenicity consistent with mild fatty infiltra tion. Mild coarsening of liver echotexture.. No focal liver lesions are seen.. GALLBLADDER: Sludge. No visible stones. No evidence of wall thickening. SEAMAN'S SIGN: Negative. BILIARY SYSTEM: No intrahepatic or extrahepatic biliary ductal dilation. RIGHT KIDNEY: Normal size. No evidence of renal calculi. No evidence of hydronephrosis. No suspicious renal mass. No cyst identified. PANCREAS: Normal where visualized. ABDOMINAL AORTA AND IVC: Visualized portions normal caliber. ASCITES: Trace at edge of liver. Prior CT showed a large amount of ascites. IMPRESSION: Enlarged fatty liver. Gallbladder sludge. Trace amount of ascites. Dense of acute cholecystitis. DATA REPOSITORY:
[2022-06-17 14:08] LABS: Lab Add On Test DONE
[2022-06-17 14:40] LABS: Procalcitonin 0.1 ng/mL
[2022-06-17] MEDS: Methadone 10 MG TAB PO ×2 (15:25→20:52)
[2022-06-17] MEDS: Normal Saline Flush 10 ML SYR IVP (15:29)
[2022-06-17] MEDS: Heparin 5,000 UNITS/ML VIAL 5000 UNITS SC ×2 (15:30→20:55)
[2022-06-17] MEDS: MAGNESIUM SULFATE 4 GM/100 ML BAG IVPB (15:40)
[2022-06-17] MEDS: PHENobarbital 180 MG in Normal Saline 50 ML 100 MG IVPB (15:41)
[2022-06-17] MEDS: Normal Saline 500 ML IV (16:00)
--- NOTE | 2022-06-17 16:11 | W.PM.HP.N ---
Date of service: 06/17/22 Time of Service: 16:11 Assessment and Plan Assessment and plan (1) Alcoholic hepatitis: Status: Acute Assessment and plan: Mild elevation of AST. Normal total bilirubin. Abstinence from Etoh stressed. (2) Fatty liver due to alcoholism: Status: Acute Assessment and plan: as above. US of liver w/o escobar cirrhosis noted. (3) Hypomagnesemia: Status: Acute Assessment and plan: Oral and IV replacement. Monitor. (4) Diabetes: Status: Chronic Assessment and plan: On no medications. (5) Chronic obstructive lung disease: Status: Chronic Assessment and plan: Cont symbicort; started on recent admission. Prn albuterol. (6) Hyponatremia: Status: Acute Assessment and plan: Subacute. Na 127. Holding HCTZ. Likely Etoh related. (7) Alcoholism: Status: Chronic Assessment and plan: He left the day before this admission, not wanting to go through withdrawal. During his ED evaluation today, he was equivocal on whether he was interested in alcohol abstinence or not. Being placed on CIWA with phenobarbitol. (8) Abdominal pain: Status: Acute Assessment and plan: MIldly elevated WBC count and lactate. Unclear etiology. alcohol hepatitis? Only mild elevation of AST. Minimal ascites currently. SBP? Lipase normal. No GB findings on US Cefepime initiated. Monitor WBC count and lactate. History of Present Illness History of Present Illness Chief Complaint: Concerned with ascites. Narrative: Drew is a 56 yo male with a PMH of chronic alcohol abuse (he denies an alcohol abuse issue), ascites, transaminitis, COPD, HTN, DM, tobacco abuse disorder, depression. He was admitted to [facility] on 06/15/22 and discharged on 06/16/22. He did not want to remain in the hospital and go through alcohol withdrawal (that had commenced and was on CIWA with Ativan protocol). He voiced that he did not have a plan to stop drinking alcohol. He did have 4L of ascites drained by Dr. Noonan on 06/15/22 with a previous paracentesis on 05/23/22 with removal of 3L. His recent paracentesis fluid evaluation was unremarkable and cx is negative to date. He has been drinking alcohol since the discharge the day before this admission and was drinking alcohol on the ride in to the ED. He denied emesis, hematemesis. No diarrhae. No CP, SOA. No fever/chills. Lab in the ED showed a WBC count of 12.71 and a lactate of 2.8. Hgb 13.3. Platelets 188. Na 127, K 3.2. Creatinine 0.6. Mg 1.1. Bili 0.9. ALT 62. AST 124. Etoh 92.4. Lipase normal. BP 107/65. RA saturation of 98% CXR s/o acute findings. Abd US performed Enlarged fatty liver.? Gallbladder sludge.? Trace amount of ascites.?No evidence of cholelithiasis. Review of Systems All systems reviewed & are unremarkable except as noted in HPI and below PFSH All Active Problems (Updated 06/17/22 @ 18:14 by Raymundo Hancock MD) Abdominal pain (Acute) Hyponatremia (Acute) Fatty liver due to alcoholism (Acute) Alcoholic hepatitis (Acute) Alcoholic cirrhosis of liver with ascites (Acute) Chronic anemia (Acute) Acute exacerbation of chronic obstructive pulmonary disease (COPD) (Acute) Acute hyponatremia (Acute) Hypomagnesemia (Acute) Abdominal ascites (Acute) Alcoholism (Chronic) Weakness (Acute) Normal colonoscopy (Acute) Bile reflux gastritis (Acute) Hiatal hernia with GERD (Acute) Emphysematous bleb of lung (Acute) Diabetes (Chronic) Lymphadenopathy (Acute) Pharyngoesophageal dysphagia (Acute) Elevation of levels of liver transaminase levels (Acute) SOB (shortness of breath) on exertion (Acute) Preop cardiovascular exam (Acute) Abnormal barium swallow (Acute) Smoker (Acute) Screening for malignant neoplasm of prostate (Acute) Injury of hand (Acute) plates and screws Chronic diarrhea (Acute) Night sweats (Acute 03/2021) Degeneration of lumbosacral intervertebral disc (Acute) Cholelithiasis without obstruction (Acute) Infection of tooth (Acute) Chronic obstructive lung disease (Chronic) Laryngeal spasm (Acute) Chronic fatigue syndrome (Acute) Depressive disorder (Chronic) Hyperlipemia (Acute) Medical History Chronic post-traumatic headache Encounter for medication monitoring Esophagitis Gastritis History of esophageal reflux Surgical History Appendectomy Colonoscopy - MAC EGD - MAC Fracture, Open Treatment History of colonoscopy (~05/04/21) with bx History of esophagogastroduodenoscopy (EGD) (~05/04/21) Rotator Cuff Repair Bilateral Vasectomy Family History Father Cirrhosis of liver Diabetes Melitus Social History Smoking/Tobacco Use Status: Current every day Tobacco Type: cigarettes Years smoked: 30 Tobacco: How many years used: 30 Smoking risk assessment performed?: Yes Alcohol Intake: current Alcohol Intake frequency: 3 or more drinks per day Alcohol type: beer Drug use: Daily 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 Pets and animals: Yes Pets and animals: dog(s) Current gender identity: male Do you feel safe at home: Yes Do you feel safe in your relationship?: Yes Meds Allergies and Home Medications Allergies Allergy/AdvReac Type Severity Reaction Status Date / Time metformin Allergy Diarrhea Verified 06/17/22 10:44 lisinopril AdvReac Severe Swelling/Ed Verified 06/17/22 10:44 jessica Home Medications Medication Instructions Recorded Confirmed Type Atorvastatin Calcium 10 mg PO DAILY 02/12/18 06/17/22 History naloxone 4 mg/actuation nasal 4 mg NS PRN #2 sprays 02/12/18 06/17/22 History spray (Narcan) albuterol sulfate 90 mcg/actuation 2 inh inhalation QID PRN 04/04/21 06/17/22 History aerosol inhaler (ProAir HFA) amlodipine 10 mg tablet 10 mg PO DAILY 04/04/21 06/17/22 History hydrochlorothiazide 25 mg tablet 25 mg PO DAILY 04/04/21 06/17/22 History losartan 25 mg tablet 25 mg PO DAILY 04/04/21 06/17/22 History methadone 10 mg tablet 10 mg PO QID 04/04/21 06/17/22 History metoprolol succinate 50 mg 50 mg PO DAILY 04/23/21 06/17/22 History tablet,extended release 24 hr pantoprazole 40 mg tablet,delayed 40 mg PO DAILY #90 tabs 07/09/21 06/17/22 Rx release (Protonix) budesonide-formoterol HFA 160 1 inh inhalation PRN PRN Shortness 05/06/22 06/17/22 History mcg-4.5 mcg/actuation aerosol Of Breath Or Wheezing inhaler (Symbicort) doxycycline hyclate 100 mg capsule 100 mg PO BID #8 caps 06/16/22 06/17/22 Rx folic acid 1 mg tablet 1 mg PO QAM #0 tabs 06/16/22 06/17/22 Rx magnesium 200 mg tablet 400 mg PO DAILY #60 tabs 06/16/22 06/17/22 Rx prednisone 20 mg tablet 40 mg PO DAILY 3 days #6 tabs 06/16/22 06/17/22 Rx spironolactone 50 mg tablet 50 mg PO BID #30 tabs 06/16/22 06/17/22 Rx (Aldactone) thiamine mononitrate (vit B1) 100 100 mg PO QAM #0 tabs 06/16/22 06/17/22 Rx mg tablet (Vitamin B-1 (mononitrate)) Exam Narrative Exam Narrative: Thin male, appears older than his stated age. Const General: cooperative and no acute distress Orientation: alert, oriented to person, oriented to place and oriented to time Eyes General: appearance normal, both eyes and all related structures Sclera: sclerae normal Cardio Rate: regular rate Rhythm: regular rhythm Heart Sounds: S1 normal and S2 normal GI Inspection: normal to inspection Palpation: soft and tender (across upper abd diffusely. ) Auscultation: normal bowel sounds Skin General skin exam: no rashes or lesions noted Neuro General: no focal motor deficits Cranial Nerves: facial strength normal Motor: tremor (mild B hands. ) Extrem General: no calf tenderness and edema Laterality: bilateral Psych Speech and Movement: speech clear Mood: congruent mood Affect: normal affect Results Labs Result diagrams: 06/17/22 11:05 06/17/22 11:05 Labs: Laboratory Results - last 24 hr 06/17/22 06/17/22 06/17/22 11:05 11:05 11:05 WBC 12.71 H RBC 3.94 L Hgb 13.3 L Hct 37.8 L MCV 96 H MCH 33.8 H MCHC 35.2 RDW 11.9 Plt Count 210 MPV 9.9 Immature Gran % 0.5 Neutrophils % 78.3 Lymphocytes % 12.9 Monocytes % 7.6 Eosinophils % 0.5 Basophils % 0.2 Nucleated RBC % 0.0 Absolute Neutrophils 9.95 H Absolute Lymphocytes 1.64 Absolute Monocytes 0.97 H Absolute Eosinophils 0.06 Absolute Basophils 0.03 PT INR APTT VBG Lactate Sodium 127 L Potassium 3.2 L Chloride 90 L Carbon Dioxide 23.3 Anion Gap 13.7 H BUN 3 L Creatinine 0.6 L Est GFR (CKD-EPI 2020) 113.29 Glucose 163 H Calcium 8.0 L Magnesium 1.1 L Total Bilirubin 0.9 AST 124 H ALT 62 Alkaline Phosphatase 104 Troponin I < 50 Total Protein 7.3 Albumin 3.4 Lipase Cancelled 118 Procalcitonin Ethyl Alcohol 92.4 H COVID-19 Source SARS-CoV-2 (PCR) Influenza Type A (PCR) Influenza Type B (PCR) RSV (PCR) 06/17/22 06/17/22 06/17/22 11:05 11:05 11:05 WBC RBC Hgb Hct MCV MCH MCHC RDW Plt Count MPV Immature Gran % Neutrophils % Lymphocytes % Monocytes % Eosinophils % Basophils % Nucleated RBC % Absolute Neutrophils Absolute Lymphocytes Absolute Monocytes Absolute Eosinophils Absolute Basophils PT 14.7 H INR 1.5 H APTT 28.3 H VBG Lactate Sodium Potassium Chloride Carbon Dioxide Anion Gap BUN Creatinine Est GFR (CKD-EPI 2020) Glucose Calcium Magnesium Total Bilirubin AST ALT Alkaline Phosphatase Troponin I Total Protein Albumin Lipase Procalcitonin 0.1 Ethyl Alcohol Cancelled COVID-19 Source SARS-CoV-2 (PCR) Influenza Type A (PCR) Influenza Type B (PCR) RSV (PCR) 06/17/22 06/17/22 11:45 11:48 WBC RBC Hgb Hct MCV MCH MCHC RDW Plt Count MPV Immature Gran % Neutrophils % Lymphocytes % Monocytes % Eosinophils % Basophils % Nucleated RBC % Absolute Neutrophils Absolute Lymphocytes Absolute Monocytes Absolute Eosinophils Absolute Basophils PT INR APTT VBG Lactate 2.8 H* Sodium Potassium Chloride Carbon Dioxide Anion Gap BUN Creatinine Est GFR (CKD-EPI 2020) Glucose Calcium Magnesium Total Bilirubin AST ALT Alkaline Phosphatase Troponin I Total Protein Albumin Lipase Procalcitonin Ethyl Alcohol COVID-19 Source Nasopharynx SARS-CoV-2 (PCR) Negative Influenza Type A (PCR) Negative Influenza Type B (PCR) Negative RSV (PCR) Negative Last Vital Signs Temp 36.7 C 06/17/22 14:49 Pulse 84 06/17/22 15:13 Resp 12 06/17/22 15:13 BP 106/68 06/17/22 12:46 Pulse Ox 98 06/17/22 13:00 PAWSS Have you Been Recently Intoxicated or Drunk Within the Last 30 days?: Yes Have you Ever Experienced Previous Episodes of Alcohol Withdrawal?: No Have you ever Experienced Withdrawal Seizures?: No Have you ever Experienced Delirium Tremens(DT)s?: No Result: 1
[2022-06-17] MEDS: Nicotine 2 MG LOZG SUC ×2 (16:39→18:30)
[2022-06-17] MEDS: CEFEPIME 2 GM in Normal Saline 100 ML IVPB (18:30)
[2022-06-17] MEDS: PHENobarbital 130 MG in Normal Saline 50 ML 100 MG IVPB ×2 (20:46→23:28)
[2022-06-17] MEDS: Magnesium Oxide 400 MG TAB PO (20:51)
[2022-06-17] MEDS: Spironolactone 50 MG TAB PO (20:52)
[2022-06-18] VITALS (78 sets, daily range): BP systolic 87–125; BP diastolic 54–94; PULSE 63–100; RESP 1–31; TEMP 35.7–36.8; O2SAT 95–99
[2022-06-18] MEDS: CEFEPIME 2 GM in Normal Saline 100 ML IVPB ×3 (01:33→18:14)
[2022-06-18 05:26] LABS: Abs Immature Grans 0.01 10^3/uL (0.0-0.06); Absolute Basophil Count 0.03 10^3/uL (0.0-0.2); Absolute Eosinophil Count 0.18 10^3/uL (0.0-0.7); Absolute Lymphocyte Count 1.25 10^3/uL (1.2-3.4); Absolute Monocyte Count 0.34 10^3/uL (0.1-0.8); Absolute Neutrophil Count 3.03 10^3/uL (1.2-6.7); Basophils % 0.6; Eosinophils % 3.7; HCT 33.6 % (40.0-50.0); Immature Grans % 0.2; Lymphocytes % 25.8; MCH 33.6 pg (27.0-33.0); MCHC 35.7 % (32.0-36.0); MCV 94 fL (80-95); MPV 9.9 fL (8.0-11.0); Neutrophils % 62.7; Platelet Count 154 10^3/uL (130-400); RBC 3.57 10^6/uL (4.36-5.78); RDW-SD 42.1 fL; WBC 4.84 10^3/uL (4.4-10.8)
[2022-06-18 05:27] LABS: Lactate 1.6 mmol/L (0.6-1.4)
[2022-06-18 05:52] LABS: ALT 58 U/L (16-63); AST 92 U/L (15-37); Albumin 2.7 g/dL (3.4-5.0); Alkaline Phosphatase 92 U/L (46-116); Anion Gap 5.7 mmol/L (3-11); BUN 5 mg/dL (7-18); Bilirubin, Total 1.4 mg/dL (0.2-1.0); CO2 28.3 mmol/L (21.0-32.0); CREATININE 0.6 mg/dL (0.70-1.30); Calcium 7.9 mg/dL (8.5-10.1); Chloride 99 mmol/L (98-107); Estimated GFR 113.29 (mL/min/1.73m2); Glucose 113 mg/dL (74-106); Magnesium 1.5 mg/dL (1.8-2.4); Potassium 3.8 mmol/L (3.5-5.1); Sodium 133 mmol/L (136-145); Total Protein 5.9 g/dL (6.4-8.2)
[2022-06-18] MEDS: Heparin 5,000 UNITS/ML VIAL 5000 UNITS SC ×3 (06:02→20:06)
[2022-06-18] MEDS: Pantoprazole 40 MG TABCR PO (07:08)
[2022-06-18] MEDS: Albuterol/Ipratropium 3 ML UPD VIAL UPD ×3 (07:44→20:06)
[2022-06-18] MEDS: Nicotine 2 MG LOZG SUC ×3 (07:47→14:37)
[2022-06-18] MEDS: Magnesium Oxide 400 MG TAB PO ×2 (08:37→20:06)
[2022-06-18] MEDS: Folic Acid 1 MG TAB PO (08:40)
[2022-06-18] MEDS: Spironolactone 50 MG TAB PO ×2 (08:41→20:06)
[2022-06-18] MEDS: Multivitamin TAB 1 TAB PO (08:41)
[2022-06-18] MEDS: Thiamine 100 MG TAB PO (08:41)
[2022-06-18] MEDS: Methadone 10 MG TAB PO ×4 (08:42→20:06)
--- NOTE | 2022-06-18 08:44 | INITIAL_ITS ---
- If Service Date Differs Date of service: 06/18/22 Time of Service: 08:44 Care Management Initial Assess PAST MEDICAL HISTORY/PAST SURGICAL HISTORY:: All Active Problems (Updated 06/14/22 @ 22:27 by RAYMUNDO Donahue). Acute hyponatremia (Acute). Acute hypokalemia (Acute). Hypomagnesemia (Acute). Abdominal ascites (Acute). Alcoholism (Acute). Weakness (Acute). Normal colonoscopy (Acute). Bile reflux gastritis (Acute). Hiatal hernia with GERD (Acute). Emphysematous bleb of lung (Acute). Diabetes (Chronic). Lymphadenopathy (Acute). Pharyngoesophageal dysphagia (Acute). Elevation of levels of liver transaminase levels (Acute). SOB (shortness of breath) on exertion (Acute). Preop cardiovascular exam (Acute). Abnormal barium swallow (Acute). Smoker (Acute). Screening for malignant neoplasm of prostate (Acute). Injury of hand (Acute). plates and screws. Chronic diarrhea (Acute). Night sweats (Acute 03/2021). Degeneration of lumbosacral intervertebral disc (Acute). Cholelithiasis without obstruction (Acute). Infection of tooth (Acute). Chronic obstructive lung disease (Chronic). Laryngeal spasm (Acute). Chronic post-traumatic headache (Acute). Chronic fatigue syndrome (Acute). Depressive disorder (Chronic). Hyperlipemia (Acute). Medical History . Encounter for medication monitoring. Esophagitis. Gastritis. History of esophageal reflux. Surgical History . Appendectomy. Colonoscopy - MAC. EGD - MAC. Fracture, Open Treatment. History of colonoscopy (~05/04/21). with bx. History of esophagogastroduodenoscopy (EGD) (~05/04/21). Rotator Cuff Repair. Bilateral. Vasectomy PREVIOUS FUNCTIONAL STATUS/SOCIAL/FAMILY SUPPORTS:: Meir lives in [place] alone with his dog. His son and his family live closeby and are watching his dog. Meir is independent with his ADL's. He no longer drives, but his family helps with transportation. Franklin identifies his daughter in law Syeda as being his primary support person. CURRENT FUNCTIONAL STATUS:: Meir was sitting up in bed when CM met with him. He had just been medicated as he scored 20 on the CIWA scale. He was cooperative and agreeable to conversation. Meir talked about his family and how close and supportive they are. He informed CM that his [id number] feeds him dinner just about every night. He also talked about his 3 grandchildren and how important they are to him. ADVANCE DIRECTIVES:: none on file Has patient been provided with info about the portal/API?: Yes Did the patient sign up for the portal?: Yes (previously) CODE STATUS:: Full Code INSURANCE COVERAGE / FINANCIAL ISSUES:: Medicaid CURRENT HOME/COMMUNITY SERVICES/EQUIPMENT:: none currently PRIMARY CARE PHYSICIAN:: Asad El POTENTIAL DISCHARGE NEEDS:: follow up with community providers and plan of care PATIENT/FAMILY EDUCATION NEEDS:: Review discharge instructions, limitations, medications and plan to follow up with community providers. Review ask me three. TRANSPORTATION:: via private vehicle with family PLAN:: Anticipate, Franklin will discharge home via private vehicle with family when medically ready. He will follow up with community providers and discharge plan of care as prescribed. CM will place a referral to [facility] if patient is agreeable.CM will continue to offer support to Meir and assess for ongoing discharge concerns.
[2022-06-18] MEDS: Metoprolol CR 25 MG TABCR PO (09:28)
[2022-06-18] MEDS: Normal Saline 500 ML IV (10:16)
--- NOTE | 2022-06-18 12:03 | PGE_ITS ---
Date of Service Date of service: 06/18/22 Time of Service: 08:10 Assessment and Plan Assessment and plan (1) Alcoholic hepatitis: Status: Acute Assessment and plan: Mild elevation of AST; now trending down. Normal total bilirubin initially now mildly elevated at 1.4 with an elevated conjugate bili of 9.6. + fatty liver on US Abstinence from Etoh stressed. (2) Fatty liver due to alcoholism: Status: Acute Assessment and plan: as above. US of liver w/o escobar cirrhosis noted. (3) Hypomagnesemia: Status: Acute Assessment and plan: Oral and IV replacement. Monitor. (4) Diabetes: Status: Chronic Assessment and plan: On no medications. A1c 5.2. (5) Chronic obstructive lung disease: Status: Chronic Assessment and plan: Cont symbicort; started on recent admission. Prn albuterol. (6) Hyponatremia: Status: Acute Assessment and plan: Subacute. Na 127 on admission, now 133. Holding HCTZ. Likely Etoh related. (7) Alcoholism: Status: Chronic Assessment and plan: He left the day before this admission, not wanting to go through withdrawal. Cont CIWA monitoring with phenobarbitol protocol. (8) Abdominal pain: Status: Acute Assessment and plan: MIldly elevated WBC count and lactate; both now normalized. Improved pain and tolerating diet. Unclear etiology. alcohol hepatitis? Minimal ascites currently. SBP? Doubtful Lipase normal. No GB findings on US Cefepime initiated. Subjective Subjective Patient reports: feels better (abd pain improved. ) and afebrile; denies nausea, vomiting or shortness of breath Interval history since last seen: CIWA score of 3 at 07:32 this AM. Exam Narrative Exam Narrative: Sitting on edge of bed. Pleasant and conversant. Calm. Const General: cooperative and no acute distress Nutritional Appearance: malnourished and thin Orientation: alert, oriented to person and oriented to place Eyes General: appearance normal, both eyes and all related structures Sclera: sclerae normal Resp Effort & Inspection: normal respiratory effort Auscultation: clear to auscultation bilaterally Cardio Rate: regular rate Rhythm: regular rhythm Heart Sounds: S1 normal and S2 normal GI Palpation: firm, guarding (mild) and tender (across upper abd.) Skin General skin exam: no rashes or lesions noted Neuro General: no focal motor deficits Cranial Nerves: facial strength normal Motor: tremor Extrem General: no pedal edema and no calf tenderness Psych Mood: congruent mood Affect: normal affect Objective Last Vital Signs Temp 36.2 C L 06/18/22 11:36 Pulse 79 06/18/22 10:00 Resp 14 06/18/22 10:10 BP 102/69 06/18/22 10:00 Pulse Ox 99 06/18/22 11:36 Laboratory Results - last 24 hr 06/17/22 06/17/22 06/17/22 11:05 11:05 11:05 WBC RBC Hgb Hct MCV MCH MCHC RDW Plt Count MPV Immature Gran % Neutrophils % Lymphocytes % Monocytes % Eosinophils % Basophils % Nucleated RBC % Absolute Neutrophils Absolute Lymphocytes Absolute Monocytes Absolute Eosinophils Absolute Basophils PT 14.7 H INR 1.5 H APTT 28.3 H VBG Lactate Sodium 127 L Potassium 3.2 L Chloride 90 L Carbon Dioxide 23.3 Anion Gap 13.7 H BUN 3 L Creatinine 0.6 L Est GFR (CKD-EPI 2020) 113.29 Glucose 163 H Calcium 8.0 L Magnesium 1.1 L Total Bilirubin 0.9 AST 124 H ALT 62 Alkaline Phosphatase 104 Troponin I < 50 Total Protein 7.3 Albumin 3.4 Lipase 118 Procalcitonin Ethyl Alcohol 92.4 H COVID-19 Source SARS-CoV-2 (PCR) Influenza Type A (PCR) Influenza Type B (PCR) RSV (PCR) Add-On Test Request DONE 06/17/22 06/17/22 06/17/22 11:05 11:48 19:17 WBC RBC Hgb Hct MCV MCH MCHC RDW Plt Count MPV Immature Gran % Neutrophils % Lymphocytes % Monocytes % Eosinophils % Basophils % Nucleated RBC % Absolute Neutrophils Absolute Lymphocytes Absolute Monocytes Absolute Eosinophils Absolute Basophils PT INR APTT VBG Lactate 3.0 H* Sodium Potassium Chloride Carbon Dioxide Anion Gap BUN Creatinine Est GFR (CKD-EPI 2020) Glucose Calcium Magnesium Total Bilirubin AST ALT Alkaline Phosphatase Troponin I Total Protein Albumin Lipase Procalcitonin 0.1 Ethyl Alcohol COVID-19 Source Nasopharynx SARS-CoV-2 (PCR) Negative Influenza Type A (PCR) Negative Influenza Type B (PCR) Negative RSV (PCR) Negative Add-On Test Request 06/18/22 06/18/22 06/18/22 05:18 05:18 05:18 WBC 4.84 RBC 3.57 L Hgb 12.0 L Hct 33.6 L MCV 94 MCH 33.6 H MCHC 35.7 RDW 12.0 Plt Count 154 MPV 9.9 Immature Gran % 0.2 Neutrophils % 62.7 Lymphocytes % 25.8 Monocytes % 7.0 Eosinophils % 3.7 Basophils % 0.6 Nucleated RBC % 0.0 Absolute Neutrophils 3.03 Absolute Lymphocytes 1.25 Absolute Monocytes 0.34 Absolute Eosinophils 0.18 Absolute Basophils 0.03 PT INR APTT VBG Lactate 1.6 H Sodium 133 L Potassium 3.8 Chloride 99 Carbon Dioxide 28.3 Anion Gap 5.7 BUN 5 L Creatinine 0.6 L Est GFR (CKD-EPI 2020) 113.29 Glucose 113 H Calcium 7.9 L Magnesium 1.5 L Total Bilirubin 1.4 H AST 92 H ALT 58 Alkaline Phosphatase 92 Troponin I Total Protein 5.9 L Albumin 2.7 L Lipase Procalcitonin Ethyl Alcohol COVID-19 Source SARS-CoV-2 (PCR) Influenza Type A (PCR) Influenza Type B (PCR) RSV (PCR) Add-On Test Request PAWSS Have you Been Recently Intoxicated or Drunk Within the Last 30 days?: No Have you Ever Experienced Previous Episodes of Alcohol Withdrawal?: No Have you ever Experienced Withdrawal Seizures?: No Have you ever Experienced Delirium Tremens(DT)s?: No Have you ever undergone Alcohol Rehabilitation Treatment (i.e, inpt ot outpatient treatment programs)?: No Have you ever Experienced Blackouts?: No Have you ever Combined Alcohol with other Downers within the last 90 days?: No Have you ever Combined Alcohol with any other Substance of Abuse during the last 90 days?: No Positive Blood Alcohol level on Presentation? [PCS.BAL]: Yes Evidence of Increased Autonomic Activity (i.e. HR>120, tremor, sweating, agita tion, nausea)?: No Result: 1
--- NOTE | 2022-06-18 13:59 | NUR.NOTE ---
Report to Babita Pan RN
--- NOTE | 2022-06-18 15:31 | PHA.REVIEW2 ---
Pharmacy Admission Review - Admission Clinical Review (Last Reviewed 06/17/22 @ 17:50 by Raymundo Hancock MD) Abdominal pain (Acute) Hyponatremia (Acute) Fatty liver due to alcoholism (Acute) Alcoholic hepatitis (Acute) Hypomagnesemia (Acute) metformin Allergy (Verified 06/17/22 10:44) Diarrhea lisinopril Adverse Reaction (Severe, Verified 06/17/22 10:44) Swelling/Edema Resuscitation Status Full Code Height 5 ft 10 in Weight 72 kg - Comments Comments/Follow Ups: 1. CIWA - phenobarb protocol (IBW = 73 kg) soft stop 20 mg/kg = 1460 mg, hard stop 30 mg/kg = 2190 mg. 2. caution with addition of QTc prolonging meds (QTc = 495 on 06/14) - Renal Dosing Renal Dosing: BUN 5 mg/dL (7-18) L 06/18/22 05:18 Creatinine 0.6 mg/dL (0.70-1.30) L 06/18/22 05:18 Medications needing adjustments: Reviewed (crcl = 140, no adjustments needed) - Anticoagulation Anticoagulation: Hgb 12.0 g/dL (13.5-17.5) L 06/18/22 05:18 Hct 33.6 % (40.0-50.0) L 06/18/22 05:18 Plt Count 154 10^3/uL (130-400) 06/18/22 05:18 INR 1.5 (0.9-1.1) H 06/17/22 11:05 Creatinine 0.6 mg/dL (0.70-1.30) L 06/18/22 05:18 DVT Prophylaxis: Reviewed Medications: Heparin (heparin 5000 units q8) Therapeutic Anticoagulation: N/A - Opiate Usage Evaluate Pain Scale/Pains Meds: Reviewed (takes methadone 10 mg QID for chronic pain) Scheduled Bowel Reg ordered if on Opiates?: No - Relevant Labs Sodium 133 mmol/L (136-145) L 06/18/22 05:18 Potassium 3.8 mmol/L (3.5-5.1) 06/18/22 05:18 Chloride 99 mmol/L (98-107) 06/18/22 05:18 Magnesium 1.5 mg/dL (1.8-2.4) L 06/18/22 05:18 Electrolytes, C-Reactive P, ESR: Reviewed (Mag = 1.5, taking mag ox 400 mg BID, received 4 g IV yesterday) - DM Control DM Control: Glucose 113 mg/dL (74-106) H 06/18/22 05:18 DM Control: N/A - Cardiac Review Cardiac Review: Troponin I < 50 ng/L (<or=60) 06/17/22 11:05 BP, HR, EF%: Reviewed (on metoprolol XL 50 mg daily, HCTZ 25 mg daily (not currently ordered), spironolactone 50 mg BID) - Qtc Review QTc: Reviewed (QTc = 495 on 06/14) - IV to PO Switch IV Medications: Reviewed (continue IV abx for now (has IV or PO phenobarb, so far has only rec'd PO)) - Home Meds Home Med List reviewed: Reviewed - Current meds Current Medication Order Review: Reviewed Antibiotic Activity - Pharmacy Antibiotic Review Pharmacy Antibiotic Activity: Reviewed, no change (continue cefepime 2 g Q8 for possible intra-abdominal infection)
[2022-06-18] MEDS: Normal Saline Flush 10 ML SYR IVP (15:32)
[2022-06-18] MEDS: cloNIDine 0.1 MG TAB PO ×2 (18:14→20:07)
[2022-06-18] MEDS: PHENobarbital 130 MG/ML VIAL IVP (20:06)
[2022-06-19] VITALS (84 sets, daily range): BP systolic 89–123; BP diastolic 52–88; PULSE 67–96; RESP 8–29; TEMP 36.6–36.8; O2SAT 94–98
[2022-06-19] MEDS: CEFEPIME 2 GM in Normal Saline 100 ML IVPB ×2 (02:00→09:45)
[2022-06-19 05:17] LABS: Anion Gap 6.6 mmol/L (3-11); BUN 5 mg/dL (7-18); CO2 25.4 mmol/L (21.0-32.0); CREATININE 0.6 mg/dL (0.70-1.30); Calcium 8.2 mg/dL (8.5-10.1); Chloride 98 mmol/L (98-107); Estimated GFR 113.29 (mL/min/1.73m2); Glucose 119 mg/dL (74-106); Magnesium 1.1 mg/dL (1.8-2.4); Sodium 130 mmol/L (136-145)
[2022-06-19] MEDS: Heparin 5,000 UNITS/ML VIAL 5000 UNITS SC (06:11)
[2022-06-19] MEDS: MAGNESIUM SULFATE 4 GM/100 ML BAG IVPB (06:49)
--- NOTE | 2022-06-19 09:35 | PDOC.CMPRO ---
- If Service Date Differs Date of service: 06/19/22 Time of Service: 09:35 Care Management Progress Note S/O: A: Meir is a 56 year old man admitted on 06/17/22 with abdominal pain and ETOH abusr P:Anticipate, Franklin will discharge home via private vehicle with family when medically ready. He will follow up with community providers and discharge plan of care as prescribed. CM will place a referral to [facility] if patient is agreeable.CM will continue to offer support to Meir and assess for ongoing discharge concerns.
[2022-06-19] MEDS: Spironolactone 50 MG TAB PO (09:38)
[2022-06-19] MEDS: Magnesium Oxide 400 MG TAB PO (09:38)
[2022-06-19] MEDS: Folic Acid 1 MG TAB PO (09:38)
[2022-06-19] MEDS: Pantoprazole 40 MG TABCR PO (09:38)
[2022-06-19] MEDS: Multivitamin TAB 1 TAB PO (09:38)
[2022-06-19] MEDS: Thiamine 100 MG TAB PO (09:38)
[2022-06-19] MEDS: Metoprolol CR 25 MG TABCR PO (09:39)
[2022-06-19] MEDS: cloNIDine 0.1 MG TAB PO (09:39)
[2022-06-19] MEDS: Methadone 10 MG TAB PO ×2 (09:39→12:41)
--- NOTE | 2022-06-19 14:48 | DSE_ITS ---
Date of service: 06/19/22 Time of Service: 14:48 DS: Diagnosis Discharge Diagnosis (1) Alcoholic hepatitis: Status: Acute Asessment and Plan: Improved. Abstinence from Etoh encouraged. (2) Fatty liver due to alcoholism: Status: Acute Asessment and Plan: As above (3) Hypomagnesemia: Status: Acute Asessment and Plan: Gave oral and IV; not rechecked before he left AMA. (4) Diabetes: Status: Chronic Asessment and Plan: On no medications. (5) Chronic obstructive lung disease: Status: Chronic Asessment and Plan: No acute exacerbation. (6) Hyponatremia: Status: Acute Asessment and Plan: Improved. (7) Alcoholism: Status: Chronic Asessment and Plan: He has gone through Etoh withdrawal on phenobarbital protocal. He states he desires to remain sober. Sobriety elementary instructional coach consulted. Pt left AMA; sobriety elementary instructional coach met with him outside the facility. (8) Abdominal pain: Status: Acute Asessment and Plan: Improved. No BM for several days which could be contributing to his discomfort. He was placed on cefepime; unsure if this was the reason but the day after admission his WBC count and lactate normalized. Doubt SBP. He left before bowel regimen given. Discharge Plan Disposition Patient Disposition: AGAINST MEDICAL ADVICE Condition: Stable Discharge Details Reason For Visit: Abdominal pain, ETOH Abuse Admit Date/Time: 06/17/22 13:19 Admit Provider: Raymundo Hancock Attending Provider: Raymundo Hancock Primary Care Provider: Asad El Hospital Course Hospital Course: See Diagnosis. Left AMA. Home Meds and New Rx's Prescriptions: No Action metoprolol succinate 50 mg tablet extended release 24 hr 50 mg PO DAILY Label Comments: TAKE ONE TABLET BY MOUTH EVERY DAY Atorvastatin Calcium 10 MG tablet 10 mg PO DAILY Label Comments: Patient states he does not take this medication. naloxone [Narcan] 4 MG spray,non-aerosol 4 mg NS PRN Qty: 2 pantoprazole [Protonix] 40 mg tablet,delayed release (DR/EC) 40 mg PO DAILY Qty: 90 3RF methadone 10 mg tablet 10 mg PO QID Label Comments: TAKE ONE TABLET BY MOUTH FOUR TIMES A DAY DIRECTED. EARLIEST FILL DATE 03/19/2021. amlodipine 10 mg tablet 10 mg PO DAILY Label Comments: TAKE ONE TABLET BY MOUTH EVERY DAY losartan 25 mg tablet 25 mg PO DAILY Hold Instructions: Until PCP follow up. Held d/t low BP Label Comments: TAKE ONE TABLET BY MOUTH EVERY DAY hydrochlorothiazide 25 mg tablet 25 mg PO DAILY Hold Instructions: Until PCP follow up and repeat lab results available. Label Comments: TAKE ONE TABLET BY MOUTH EVERY DAY albuterol sulfate [ProAir HFA] 90 mcg/actuation HFA aerosol inhaler 2 inh INHALATION QID PRN Label Comments: INHALE 2 PUFFS BY MOUTH EVERY 4 HOURS NEEDED FOR 30 DAYS budesonide-formoterol [Symbicort] 160-4.5 mcg/actuation HFA aerosol inhaler 1 inh INHALATION PRN PRN (Reason: Shortness Of Breath Or Wheezing) Label Comments: INHALE TWO PUFFS BY MOUTH TWICE A DAY folic acid 1 mg Tablet 1 mg PO QAM Qty: 0 0RF Label Comments: Patient states he does not take this medication. prednisone 20 mg Tablet 40 mg PO DAILY 3 Days Qty: 6 0RF Label Comments: Patient states he does not take this medication. Rx Instructions: Take first dose on 06/17/22 spironolactone [Aldactone] 50 mg tablet 50 mg PO BID Qty: 30 0RF Label Comments: Patient states he does not take this medication. thiamine mononitrate (vit B1) [Vitamin B-1 (mononitrate)] 100 mg Tablet 100 mg PO QAM Qty: 0 0RF Label Comments: Patient states he does not take this medication. doxycycline hyclate 100 mg capsule 100 mg PO BID Qty: 8 0RF Label Comments: Patient states he does not take this medication. Rx Instructions: First dose tonight, 06/16/22 magnesium 200 mg tablet 400 mg PO DAILY Qty: 60 0RF Label Comments: Patient states he does not take this medication. DS: Summary Time Spent with Patient providing and/or coordinating discharge services: Less than 30 minutes Status at Discharge Functional status at discharge: independent ambulation Overall status at discharge: patient is back to baseline Mental Status: mental status grossly normal Speech and Movement: speech clear Mood: anxious mood Affect: blunted Exam Psych Mental Status: mental status grossly normal Speech and Movement: speech clear Mood: anxious mood Affect: blunted DS: Data Vitals/I&O Vitals and I&O: Vital Signs Temperature 36.8 C 06/19/22 05:32 Temperature Source Tympanic 06/19/22 05:32 Pulse 72 06/19/22 12:01 Pulse 78 06/19/22 13:20 Respiratory Rate 17 06/19/22 13:20 Respiratory Effort 06/19/22 05:32 Respiratory Depth Normal 06/19/22 05:32 Respiratory Pattern Normal 06/19/22 05:32 Blood Pressure 112/76 06/19/22 12:01 Blood Pressure Mean 84 06/19/22 12:01 Blood Pressure Position Supine 06/19/22 05:32 Pulse Oximetry 95 06/19/22 09:30 Oxygen Delivery Method Room Air 06/19/22 05:32 Oxygen Flow Rate 0 06/19/22 05:32 Pain Level 0 06/19/22 05:32 Intake & Output 06/18/22 06/19/22 06/19/22 23:59 11:59 23:59 Intake Total 1020 / 2501 579.583 / 579.583 Output Total 1250 / 3900 1650 / 1650 Balance -230 / -1399 -1070.417 / -1070.417 Weight 76.5 kg Intake: IV 100 / 381 279.583 / 279.583 Oral 920 / 2120 300 / 300 Output: Urine 1250 / 3900 1650 / 1650 Other: Urine Color Yellow Light Linda Urine Appearance Clear Clear Cloudy Sediment Urine Odor Normal None Comment urinal urinal Voiding Methods Urinal Data Completed and Pending Labs on day of discharge: Labs from last 24 hours 06/19/22 04:25 Sodium 130 L Potassium 4.0 Chloride 98 Carbon Dioxide 25.4 Anion Gap 6.6 BUN 5 L Creatinine 0.6 L Est GFR (CKD-EPI 2020) 113.29 Glucose 119 H Calcium 8.2 L Magnesium 1.1 L PFSH All Active Problems (Updated 06/17/22 @ 18:14 by Raymundo Hancock MD) Abdominal pain (Acute) Hyponatremia (Acute) Fatty liver due to alcoholism (Acute) Alcoholic hepatitis (Acute) Alcoholic cirrhosis of liver with ascites (Acute) Chronic anemia (Acute) Acute exacerbation of chronic obstructive pulmonary disease (COPD) (Acute) Acute hyponatremia (Acute) Hypomagnesemia (Acute) Abdominal ascites (Acute) Alcoholism (Chronic) Weakness (Acute) Normal colonoscopy (Acute) Bile reflux gastritis (Acute) Hiatal hernia with GERD (Acute) Emphysematous bleb of lung (Acute) Diabetes (Chronic) Lymphadenopathy (Acute) Pharyngoesophageal dysphagia (Acute) Elevation of levels of liver transaminase levels (Acute) SOB (shortness of breath) on exertion (Acute) Preop cardiovascular exam (Acute) Abnormal barium swallow (Acute) Smoker (Acute) Screening for malignant neoplasm of prostate (Acute) Injury of hand (Acute) plates and screws Chronic diarrhea (Acute) Night sweats (Acute 03/2021) Degeneration of lumbosacral intervertebral disc (Acute) Cholelithiasis without obstruction (Acute) Infection of tooth (Acute) Chronic obstructive lung disease (Chronic) Laryngeal spasm (Acute) Chronic fatigue syndrome (Acute) Depressive disorder (Chronic) Hyperlipemia (Acute) Medical History Chronic post-traumatic headache Encounter for medication monitoring Esophagitis Gastritis History of esophageal reflux Surgical History Appendectomy Colonoscopy - MAC EGD - MAC Fracture, Open Treatment History of colonoscopy (~05/04/21) with bx History of esophagogastroduodenoscopy (EGD) (~05/04/21) Rotator Cuff Repair Bilateral Vasectomy Family History Father Cirrhosis of liver Diabetes Melitus Social History Smoking/Tobacco Use Status: Current every day Tobacco Type: cigarettes Years smoked: 30 Tobacco: How many years used: 30 Smoking risk assessment performed?: Yes Alcohol Intake: current Alcohol Intake frequency: 3 or more drinks per day Alcohol type: beer Drug use: Daily 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 Pets and animals: Yes Pets and animals: dog(s) Current gender identity: male Do you feel safe at home: Yes Do you feel safe in your relationship?: Yes
--- NOTE | 2022-06-19 15:13 | PDOC.CMDIS ---
- If Service Date Differs Date of service: 06/19/22 Time of Service: 15:13 LACE Index Scoring Tool - Questions: Length of Stay (in days): 2 Acuity (Admit via E.D.?): Yes Comorbidities: Diabetes w/o Complication, Liver or Renal Disease E.D. Visits: 4 - Answers: Total Score: 14 Risk of Readmission: High Risk Care Management Discharge Reason for Hospitalization: ETOH abuse Discharge Plan: Yonny PANDEY this afternoon Patient/Family Education Needs: Yonny PANDEY
== END 2022-06-19 13:45 | disposition left against medical advice (07) | DRG 433 ==
LOC: ER 13:39 → ICU 14:17
PROVIDERS: Admitting Provider Family Medicine; Emergency Provider Physician Assistant; PCP Family Medicine; Visit Provider Family Medicine
DX: K70.11 Alcoholic hepatitis with ascites (principal); E87.1 Hypo-osmolality and hyponatremia; K70.31 Alcoholic cirrhosis of liver with ascites; J44.9 Chronic obstructive pulmonary disease, unspecified; I10 Essential (primary) hypertension; K44.9 Diaphragmatic hernia without obstruction or gangrene; E11.9 Type 2 diabetes mellitus without complications; F17.210 Nicotine dependence, cigarettes, uncomplicated; F32.A Depression, unspecified; D64.9 Anemia, unspecified; E83.42 Hypomagnesemia; F10.20 Alcohol dependence, uncomplicated; K21.9 Gastro-esophageal reflux disease without esophagitis; K52.9 Noninfective gastroenteritis and colitis, unspecified; M51.37 Other intervertebral disc degeneration, lumbosacral region; E78.5 Hyperlipidemia, unspecified; R53.82 Chronic fatigue, unspecified; K70.0 Alcoholic fatty liver
CPT/HCPCS: 36415; 80048; 80053; 83690; 84145; 87637; 96365; 96366; 96375; 99285; 71046; 76705; 80320; 83605; 83735; 84484; 85025; 85610; 85730; 94640; 99223; 99232; 99238; J1644; J1941; J2560; J3475; J3480; J7620

== ENCOUNTER 2022-10-09 09:42 | Emergency (ER) | payer MEDICAID, SELFPAY ==
[2022-10-09 09:54] VITALS: BP 102/53; PULSE 75; RESP 16; TEMP 36.8; O2SAT 99
--- NOTE | 2022-10-09 10:00 | DI.RAD_ITS ---
Exam(s) XR FOOT RT COMPLETE EXAM: XR FOOT RT COMPLETE CLINICAL HISTORY: Fall, Swelling. TECHNIQUE: 2D digital imaging was performed. COMPARISON: No exams were available for comparison FINDINGS: 3 views There is nondisplaced subtle transverse fracture at the base of the 5th metatarsal. No other fractur es identified. No diastasis of the Lisfranc joint. Other metatarsal bases appear intact. IMPRESSION: Subtle nondisplaced transverse fracture of the base of the 5th metatarsal. DATA REPOSITORY: RADIATION DOSE DELIVERED:
--- NOTE | 2022-10-09 10:00 | DI.RAD_ITS ---
Exam(s) XR ANKLE RT COMPLETE EXAM: XR ANKLE RT COMPLETE CLINICAL HISTORY: Fall, Swelling, R/O Fracture. TECHNIQUE: 2D digital imaging was performed. COMPARISON: CR RIGHT ANKLE COMPLETE from 02/09/2018 FINDINGS: 3 views There is a healed oblique fracture of the distal fibula. There is no evidence of acute fracture or w idening of the ankle mortise. Talar dome unremarkable. IMPRESSION: No acute fracture evident. DATA REPOSITORY: RADIATION DOSE DELIVERED:
--- NOTE | 2022-10-09 10:08 | W.ED.GENAD ---
Discharge Plan Disposition Patient Disposition: Home Condition: Stable Discharge Details Clinical Impression: Fracture of base of fifth metatarsal bone of right foot Primary Care Provider: Asad El ED Provider: Vicki Solomon Home Meds and New Rx's Prescriptions: New ibuprofen 800 mg tablet 800 mg PO TID PRN (Reason: pain) 7 Days Qty: 20 0RF Rx Instructions: Take 1 tablet up to 3 times daily with food as needed for moderate to severe pain. Continued metoprolol succinate 50 mg tablet extended release 24 hr 50 mg PO DAILY Label Comments: TAKE ONE TABLET BY MOUTH EVERY DAY Atorvastatin Calcium 10 MG tablet 10 mg PO DAILY Label Comments: Patient states he does not take this medication. naloxone [Narcan] 4 MG spray,non-aerosol 4 mg NS PRN Qty: 2 pantoprazole 40 mg tablet,delayed release (DR/EC) See Rx Instructions .ROUTE .COMPLEX Qty: 90 3RF Dose Instruction: TAKE ONE TABLET BY MOUTH EVERY DAY Rx Instructions: TAKE ONE TABLET BY MOUTH EVERY DAY methadone 10 mg tablet 10 mg PO BID Label Comments: TAKE ONE TABLET BY MOUTH FOUR TIMES A DAY DIRECTED. EARLIEST FILL DATE 03/19/2021. amlodipine 10 mg tablet 10 mg PO DAILY Label Comments: TAKE ONE TABLET BY MOUTH EVERY DAY losartan 25 mg tablet 25 mg PO DAILY Hold Instructions: Until PCP follow up. Held d/t low BP Label Comments: TAKE ONE TABLET BY MOUTH EVERY DAY hydrochlorothiazide 25 mg tablet 25 mg PO DAILY Hold Instructions: Until PCP follow up and repeat lab results available. Label Comments: TAKE ONE TABLET BY MOUTH EVERY DAY albuterol sulfate [ProAir HFA] 90 mcg/actuation HFA aerosol inhaler 2 inh INHALATION QID PRN Label Comments: INHALE 2 PUFFS BY MOUTH EVERY 4 HOURS NEEDED FOR 30 DAYS budesonide-formoterol [Symbicort] 160-4.5 mcg/actuation HFA aerosol inhaler 1 inh INHALATION PRN PRN (Reason: Shortness Of Breath Or Wheezing) Label Comments: INHALE TWO PUFFS BY MOUTH TWICE A DAY folic acid 1 mg Tablet 1 mg PO QAM Qty: 0 0RF Label Comments: Patient states he does not take this medication. spironolactone [Aldactone] 50 mg tablet 50 mg PO BID Qty: 30 0RF Label Comments: Patient states he does not take this medication. thiamine mononitrate (vit B1) [Vitamin B-1 (mononitrate)] 100 mg Tablet 100 mg PO QAM Qty: 0 0RF Label Comments: Patient states he does not take this medication. magnesium 200 mg tablet 400 mg PO DAILY Qty: 60 0RF Label Comments: Patient states he does not take this medication. Discharge Instructions Instructions: Foot Fracture in Adults (ED) Additional Instructions: X-ray shows a subtle fracture on the base of the fifth metatarsal which is on your foot. Please wear the walking boot and use crutches advance as tolerated. Rest, ice, compression, elevation when sitting or lying down. Please follow-up with orthopedics next 1 to 2 weeks. Take the ibuprofen with food as directed. Please take Ibuprofen with food every 8 hours as needed for pain and swelling. Follow up with orthopedics in 1-2 weeks. Return to ED sooner if any worsening or concerns. Increase oral fluids. Referrals: Asad El [Primary Care Provider] - Fredrick Henry MD [ [facility] STAFF PHYSICIAN] - 2 weeks (Olease call them for follow up) Medical Decision Making 57-year-old male presents to the ER with chief complaint of right ankle pain status post a slip and fall around 430 this morning. He reports that his leg gave out and slipped out from under him. He does have swelling, ecchymosis to his lateral foot and lateral malleolus. No obvious deformity. Dorsal pedal pulses intact. He reports that he has had surgery on this ankle prior and is always had pain in his ankle and foot for years. Patient has no complaints of headache neck pain back pain or any other associated symptoms. Past medical history includes alcoholic hepatitis, cirrhosis, COPD, diabetes, hyperlipidemia. Ice, ibuprofen x-ray of ankle and foot ordered. X-ray shows a subtle displaced transverse fracture at the base of the fifth metatarsal. Please see the official report. Patient was placed in a walking boot and crutches and instructed on home care and follow-up care with orthopedics. He verbalizes understanding. He was placed on a care management list by unit staff. Patient demonstrated proper use of crutches prior to discharge. This text was generated using [employer] system, please disregard any oddities of phrase or misspellings. Imaging Data Radiologic Study: Imaging: X-Ray Radiologist's impression: EXAM:? XR FOOT RT COMPLETE CLINICAL HISTORY: ? Fall, Swelling. ? TECHNIQUE:? 2D digital imaging was performed. COMPARISON:? No exams were available for comparison FINDINGS: 3 views There is nondisplaced subtle transverse fracture at the base of the 5th metatarsal.? No other fractures identified.? No diastasis of the Lisfranc joint.? Other metatarsal bases appear intact. IMPRESSION: Subtle nondisplaced transverse fracture of the base of the 5th metatarsal. HPI General Mode of arrival: wheelchair. Date/Time Provider Initiated Documentation: 10/09/22 09:44. Limitations to Documentation: no limitations. Information obtained by: patient, RN notes reviewed and old records reviewed. HPI Narrative: 57-year-old male presents to the ER with chief complaint of right ankle pain status post a slip and fall around 430 this morning. He reports that his leg gave out and slipped out from under him. He does have swelling, ecchymosis to his lateral foot and lateral malleolus. No obvious deformity. Dorsal pedal pulses intact. He reports that he has had surgery on this ankle prior and is always had pain in his ankle and foot for years. Patient has no complaints of headache neck pain back pain or any other associated symptoms. Past medical history includes alcoholic hepatitis, cirrhosis, COPD, diabetes, hyperlipidemia. Related Data Home Medications Medication Instructions Recorded Confirmed Atorvastatin Calcium 10 mg PO DAILY 02/12/18 10/09/22 naloxone 4 mg/actuation nasal 4 mg NS PRN #2 sprays 02/12/18 10/09/22 spray (Narcan) albuterol sulfate 90 mcg/actuation 2 inh inhalation QID PRN 04/04/21 10/09/22 aerosol inhaler (ProAir HFA) amlodipine 10 mg tablet 10 mg PO DAILY 04/04/21 10/09/22 hydrochlorothiazide 25 mg tablet 25 mg PO DAILY 04/04/21 10/09/22 losartan 25 mg tablet 25 mg PO DAILY 04/04/21 10/09/22 methadone 10 mg tablet 10 mg PO BID 04/04/21 10/09/22 metoprolol succinate 50 mg 50 mg PO DAILY 04/23/21 10/09/22 tablet,extended release 24 hr budesonide-formoterol HFA 160 1 inh inhalation PRN PRN Shortness 05/06/22 10/09/22 mcg-4.5 mcg/actuation aerosol Of Breath Or Wheezing inhaler (Symbicort) folic acid 1 mg tablet 1 mg PO QAM #0 tabs 06/16/22 10/09/22 magnesium 200 mg tablet 400 mg PO DAILY #60 tabs 06/16/22 10/09/22 spironolactone 50 mg tablet 50 mg PO BID #30 tabs 06/16/22 10/09/22 (Aldactone) thiamine mononitrate (vit B1) 100 100 mg PO QAM #0 tabs 06/16/22 10/09/22 mg tablet (Vitamin B-1 (mononitrate)) pantoprazole 40 mg tablet,delayed See Rx Instructions .Route 07/31/22 10/09/22 release .COMPLEX #90 tabs ibuprofen 800 mg tablet 800 mg PO TID PRN pain 7 days #20 10/09/22 tabs Previous Rx's Medication Instructions Recorded folic acid 1 mg tablet 1 mg PO QAM #0 tabs 06/16/22 magnesium 200 mg tablet 400 mg PO DAILY #60 tabs 06/16/22 spironolactone 50 mg tablet 50 mg PO BID #30 tabs 06/16/22 (Aldactone) thiamine mononitrate (vit B1) 100 100 mg PO QAM #0 tabs 06/16/22 mg tablet (Vitamin B-1 (mononitrate)) pantoprazole 40 mg tablet,delayed See Rx Instructions .Route 07/31/22 release .COMPLEX #90 tabs ibuprofen 800 mg tablet 800 mg PO TID PRN pain 7 days #20 10/09/22 tabs Allergies Allergy/AdvReac Type Severity Reaction Status Date / Time metformin Allergy Diarrhea Verified 10/09/22 09:57 lisinopril AdvReac Severe Swelling/Ed Verified 10/09/22 09:57 jessica General Stated Complaint: Orthopedic PEDRITO: 4 Review of Systems Musculoskeletal Musculoskeletal: Reports as per HPI, Denies deformity, Reports arthralgias, Reports joint swelling and Reports limited range of motion PFSH All Active Problems (Updated 10/09/22 @ 11:59 by Vicki Solomon NP) Fracture of base of fifth metatarsal bone of right foot (Acute) Abdominal pain (Acute) Hyponatremia (Acute) Fatty liver due to alcoholism (Acute) Alcoholic hepatitis (Acute) Alcoholic cirrhosis of liver with ascites (Acute) Chronic anemia (Acute) Acute exacerbation of chronic obstructive pulmonary disease (COPD) (Acute) Acute hyponatremia (Acute) Hypomagnesemia (Acute) Abdominal ascites (Acute) Normal colonoscopy (Acute) Bile reflux gastritis (Acute) Hiatal hernia with GERD (Acute) Emphysematous bleb of lung (Acute) Diabetes (Chronic) Lymphadenopathy (Acute) Pharyngoesophageal dysphagia (Acute) Elevation of levels of liver transaminase levels (Acute) SOB (shortness of breath) on exertion (Acute) Preop cardiovascular exam (Acute) Abnormal barium swallow (Acute) Smoker (Acute) Screening for malignant neoplasm of prostate (Acute) Injury of hand (Acute) plates and screws Chronic diarrhea (Acute) Night sweats (Acute 03/2021) Degeneration of lumbosacral intervertebral disc (Acute) Cholelithiasis without obstruction (Acute) Infection of tooth (Acute) Chronic obstructive lung disease (Chronic) Laryngeal spasm (Acute) Chronic fatigue syndrome (Acute) Depressive disorder (Chronic) Hyperlipemia (Acute) Medical History Chronic post-traumatic headache Encounter for medication monitoring Esophagitis Gastritis History of esophageal reflux Surgical History Appendectomy Colonoscopy - MAC EGD - MAC Fracture, Open Treatment History of colonoscopy (~05/04/21) with bx History of esophagogastroduodenoscopy (EGD) (~05/04/21) Rotator Cuff Repair Bilateral Vasectomy Family History Father Cirrhosis of liver Diabetes Melitus Social History Smoking/Tobacco Use Status: Current every day Tobacco Type: cigarettes Years smoked: 30 Tobacco: How many years used: 30 Smoking risk assessment performed?: Yes Alcohol Intake: former Drug use: 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 Contusion noted, swelling over the lateral malleolus and tenderness over the dorsum of the foot and lateral foot. Dorsal pedal pulses intact, distal cap refill less than 2 seconds. No obvious deformity noted. Course Vital Signs Vital signs: Vital Signs Temperature 36.8 C 10/09/22 09:54 Pulse 75 10/09/22 09:54 Respiratory Rate 16 10/09/22 09:54 Blood Pressure 102/53 L 10/09/22 09:54 Pulse Oximetry 99 10/09/22 09:54 Temperature 36.8 C 10/09/22 09:54 Temperature Source Temporal Artery Scan 10/09/22 09:54 Pulse 75 10/09/22 09:54 Respiratory Rate 16 10/09/22 09:54 Respiratory Effort Non-Labored 10/09/22 09:56 Blood Pressure 102/53 L 10/09/22 09:54 Blood Pressure Position Sitting 10/09/22 09:54 Pulse Oximetry 99 10/09/22 09:54 Oxygen Delivery Method Room Air 10/09/22 09:54 Oxygen Flow Rate 0 10/09/22 09:54 Pain Level 10 10/09/22 09:54
[2022-10-09] MEDS: Ibuprofen 600 MG TAB PO (10:28)
== END 2022-10-09 12:10 | disposition home or self-care (01) ==
PROVIDERS: Emergency Provider Registered Nurse Emergency; PCP Family Medicine
DX: S92.354A Nondisplaced fracture of fifth metatarsal bone, right foot, initial encounter for closed fracture (principal); J44.9 Chronic obstructive pulmonary disease, unspecified; E11.9 Type 2 diabetes mellitus without complications; Z79.51 Long term (current) use of inhaled steroids; W01.0XXA Fall on same level from slipping, tripping and stumbling without subsequent striking against object, initial encounter
CPT/HCPCS: 99283; 73610; 73630; 99282

== ENCOUNTER 2023-07-25 01:21 | Emergency (ER) | payer MEDICAID, SELFPAY ==
[2023-07-25] VITALS (28 sets, daily range): BP systolic 102–121; BP diastolic 46–74; PULSE 77–95; RESP 10–27; TEMP 37.1; O2SAT 97–99
--- NOTE | 2023-07-25 01:15 | DI.CT_ITS ---
Exam(s) CT THORAX ABD/PEL CTA EXAM: CT THORAX ABD/PEL CTA CLINICAL HISTORY: chest pain, abd pain. TECHNIQUE: Imaging Protocol: Axial CT angiography was performed with multi-slice acquisition and mu lti-planar and/or 3D reconstructions. CONTRAST MATERIAL: Intravenous: Omnipaque 350 Contrast volume:100 ml COMPARISON: CT CT NECK CHEST ABD PEL W from 04/04/[address] CHEST/ABD/PEL WO from 05/23/2022 US US ABDOMEN LIMITED from 06/17/2022 FINDINGS: CHEST: Pulmonary Arteries: No evidence of filling defects to suggest pulmonary emboli. Tracheobronchial tree: No bronchiectasis or mucus plugging. Mediastinum and Safia: No dominant adenopathy or fluid collection. Pulmonary parenchyma: Mild emphysematous changes. No consolidation or dominant measurable mass. Pleura: No effusion. No pneumothorax. Heart: The heart is notdilated. Mild coronary artery calcifications are seen. Aorta: Thoracic aorta non-dilated. Throw sclerotic changes. Bones: Unremarkable for age.Degenerative changes thoracic spine. Tubes, Catheters, and Lines: None. ABDOMEN and PELVIS: Liver: Enlarged with heterogeneous echotexture. Mild nodularity of the contour.. No suspicious marty urable mass. Somewhat limited evaluation because the exam is performed during the arterial phase. Portal, Superior Mesenteric, and Splenic Veins: Unremarkable. Gallbladder and Biliary Tract: Somewhat distended. No radiodense calculus. No wall thickening. Dila tation of the common bile duct to 14 millimeters. It measured 8 millimeters on the previous exam. T here is a tiny calcifications seen distally consistent with common bile duct stone. Pancreas: Normal density, no abnormal calcifications or inflammatory process. Spleen: Normal. Adrenals: No masses seen. Kidneys: Normal size, contour and axis. No radiodense stones. No obstructive uropathy. No masses seen . Vasculature: Abdominal aorta non-dilated. Bowel: No obstruction or bowel wall thickening. Appendix is unremarkable. Peritoneal Cavity: No ascites, collection or mesenteric inflammatory response. Lymph Nodes: Multiple small para-aortic lymph nodes as well as mesenteric and aurelio hepatis lymph nod es. Similar to prior exams. Soft Tissues: Unremarkable. Bladder: Symmetric distention, no gross wall thickening. Reproductive Organs: Unremarkable as visualized. Lymph Nodes: Within normal limits. Bones: Unremarkable for age. Degenerative changes in lumbar spine.. IMPRESSION: 1. No evidence of pulmonary embolism or other acute abnormality in the chest. Emphysematous changes. . 2. Dilated common bile duct with tiny distal stone. Gallbladder somewhat distended. Findings suspic ious for acute cholecystitis. RADIATION DOSE DELIVERED: Total DLP DATA REPOSITORY: All CT scans at this facility are submitted to the National Radiology Data Registry (NRDR) Dose Index Registry (DIR) with the [employer] ([employer]). RADIATION OPTIMIZATION: All CT scans at this facility use at least one of these dose optimization te chniques: automated exposure control; mA and/or kV adjustment per patient size (includes targeted exa ms where dose is matched to clinical indication); or iterative reconstruction.
--- NOTE | 2023-07-25 01:15 | RT.EKG_ITS ---
APPROVED REPORT Exam: Resting ECG Reason for Exam: CHEST PAIN Patient Location: E HR:77 bpm ECG Measurements Heart Rate 77 AXIS WI 256 P 70 QRSd 87 QRS 63 QT 410 T 44 QTc 463 Conclusion Sinus rhythm...normal P axis, V-rate 60- 99 Prolonged WI interval...WI >210, V-rate 50- 90 Low voltage, extremity and precordial leads...extremity<0.5mV, precordial<1.0mV Consider anteroseptal infarct...Q >30mS, dimin R, V1-V2 sinus rhtyhm, normal axis, normal intervals, non ischemic
--- NOTE | 2023-07-25 01:31 | ED.GENADUL_ITS ---
Discharge Plan Disposition Patient Disposition: Against Medical Advice Condition: Improving Discharge Details Chief Complaint: Chest Pain Clinical Impression: Abdominal pain Primary Care Provider: Asad El ED Provider: Raymundo Quiles Home Meds and New Rx's Prescriptions: No Action metoprolol succinate 50 mg tablet extended release 24 hr 50 mg PO DAILY Patient Comments: TAKE ONE TABLET BY MOUTH EVERY DAY Atorvastatin Calcium 10 MG tablet 10 mg PO DAILY Patient Comments: Patient states he does not take this medication. naloxone [Narcan] 4 MG spray,non-aerosol 4 mg NS PRN Qty: 2 pantoprazole 40 mg tablet,delayed release (DR/EC) See Rx Instructions .ROUTE .COMPLEX Qty: 90 3RF Dose Instruction: TAKE ONE TABLET BY MOUTH EVERY DAY Rx Instructions: TAKE ONE TABLET BY MOUTH EVERY DAY methadone 10 mg tablet 10 mg PO BID Patient Comments: TAKE ONE TABLET BY MOUTH FOUR TIMES A DAY DIRECTED. EARLIEST FILL DATE 03/19/2021. amlodipine 10 mg tablet 10 mg PO DAILY Patient Comments: TAKE ONE TABLET BY MOUTH EVERY DAY losartan 25 mg tablet 25 mg PO DAILY Hold Instructions: Until PCP follow up. Held d/t low BP Patient Comments: TAKE ONE TABLET BY MOUTH EVERY DAY hydrochlorothiazide 25 mg tablet 25 mg PO DAILY Hold Instructions: Until PCP follow up and repeat lab results available. Patient Comments: TAKE ONE TABLET BY MOUTH EVERY DAY albuterol sulfate [ProAir HFA] 90 mcg/actuation HFA aerosol inhaler 2 inh INHALATION QID PRN Patient Comments: INHALE 2 PUFFS BY MOUTH EVERY 4 HOURS NEEDED FOR 30 DAYS budesonide-formoterol [Symbicort] 160-4.5 mcg/actuation HFA aerosol inhaler 1 inh INHALATION PRN PRN (Reason: Shortness Of Breath Or Wheezing) Patient Comments: INHALE TWO PUFFS BY MOUTH TWICE A DAY folic acid 1 mg Tablet 1 mg PO QAM Qty: 0 0RF Patient Comments: Patient states he does not take this medication. spironolactone [Aldactone] 50 mg tablet 50 mg PO BID Qty: 30 0RF Patient Comments: Patient states he does not take this medication. thiamine mononitrate (vit B1) [Vitamin B-1 (mononitrate)] 100 mg Tablet 100 mg PO QAM Qty: 0 0RF Patient Comments: Patient states he does not take this medication. magnesium 200 mg tablet 400 mg PO DAILY Qty: 60 0RF Patient Comments: Patient states he does not take this medication. Discharge Instructions Instructions: Abdominal Pain (ED) Medical Decision Making 57-year-old male history of alcoholic cirrhosis presents with chest pain rating to the abdomen over the past 2 days, normotensive nontachycardic nonhypoxic, patient does appear uncomfortable abdomen is tender without guarding or rebounding and no palpable masses, equal radial pulses bilaterally warm well- perfused extremities, no history of coronary disease or thromboembolic disease. Consider ACS versus GERD versus gastritis versus esophageal spasm versus less likely PE however must also consider aortic pathology given chest pain rating to abdomen. Stat EKG normal sinus rhythm nonischemic, will load with aspirin, will provide Zofran analgesia fluids will obtain CT chest abdomen pelvis, disposition pending reassessment of results and symptoms 3: 49 CT imaging concerning for choledocholithiasis possible early cholecystitis, patient is afebrile nontoxic nonperitoneal. Slight white count. Symptoms improved after medication. Awaiting consultation with GI team at [facility] to consider ERCP. 4: 00 discussed case with GI team at [facility] who will review imaging and case with team in a.m. to see if patient is candidate for there and back ERCP. Although radiology read states concern for acute cholecystitis patient has no right upper quadrant discomfort, no gallbladder thickening afebrile no nausea no vomiting, patient also has a history of liver disease which could contribute to the trace pericholecystic fluid which could be ascites. GI team will call back after 8 AM with further care plan 4: 38 discussed findings with patient and family. Patient does not wish to wait until 8 AM. Patient would like to go home. I counseled patient regarding the risks of leaving and encouraged him to stay. Patient will leave AGAINST MEDICAL ADVICE HPI General Date/Time Provider Initiated Documentation: 07/25/23 01:23 . HPI Narrative: 57-year-old male history of alcoholic cirrhosis presents with chest pain over the past several days radiating from chest into abdomen. No shortness of breath nausea vomiting fevers chills or other systemic signs of illness. Denies history of coronary artery disease stenting or open heart surgery. No history of thromboembolic disease Related Data Home Medications Medication Instructions Recorded Confirmed Atorvastatin Calcium 10 mg PO DAILY 02/12/18 07/25/23 naloxone 4 mg/actuation nasal 4 mg NS PRN #2 sprays 02/12/18 10/09/22 spray (Narcan) albuterol sulfate 90 mcg/actuation 2 inh inhalation QID PRN 04/04/21 07/25/23 aerosol inhaler (ProAir HFA) amlodipine 10 mg tablet 10 mg PO DAILY 04/04/21 07/25/23 hydrochlorothiazide 25 mg tablet 25 mg PO DAILY 04/04/21 07/25/23 losartan 25 mg tablet 25 mg PO DAILY 04/04/21 07/25/23 methadone 10 mg tablet 10 mg PO BID 04/04/21 10/09/22 metoprolol succinate 50 mg 50 mg PO DAILY 04/23/21 07/25/23 tablet,extended release 24 hr budesonide-formoterol HFA 160 1 inh inhalation PRN PRN Shortness 05/06/22 07/25/23 mcg-4.5 mcg/actuation aerosol Of Breath Or Wheezing inhaler (Symbicort) folic acid 1 mg tablet 1 mg PO QAM #0 tabs 06/16/22 10/09/22 magnesium 200 mg tablet 400 mg (2 x 200 mg) PO DAILY #60 06/16/22 10/09/22 tabs spironolactone 50 mg tablet 50 mg PO BID #30 tabs 06/16/22 10/09/22 (Aldactone) thiamine mononitrate (vit B1) 100 100 mg PO QAM #0 tabs 06/16/22 10/09/22 mg tablet (Vitamin B-1 (mononitrate)) pantoprazole 40 mg tablet,delayed See Rx Instructions .Route 07/31/22 07/25/23 release .COMPLEX #90 tabs Previous Rx's Medication Instructions Recorded folic acid 1 mg tablet 1 mg PO QAM #0 tabs 06/16/22 magnesium 200 mg tablet 400 mg (2 x 200 mg) PO DAILY #60 06/16/22 tabs spironolactone 50 mg tablet 50 mg PO BID #30 tabs 06/16/22 (Aldactone) thiamine mononitrate (vit B1) 100 100 mg PO QAM #0 tabs 06/16/22 mg tablet (Vitamin B-1 (mononitrate)) pantoprazole 40 mg tablet,delayed See Rx Instructions .Route 07/31/22 release .COMPLEX #90 tabs Allergies Allergy/AdvReac Type Severity Reaction Status Date / Time metformin Allergy Diarrhea Verified 07/25/23 02:20 lisinopril AdvReac Severe Swelling/Ed Verified 07/25/23 02:20 jessica General PEDRITO: 4 Review of Systems Narrative: Review of Systems Constitutional: negative Eyes: negative ENT: negative Cardiovascular: Chest pain Respiratory: negative Gastrointestinal: Abdominal pain : negative Musculoskeletal: negative Skin: negative Neurologic: negative Psych: negative PFSH All Active Problems (Updated 07/25/23 @ 04:40 by Raymundo Quiles MD) Abdominal pain (Acute) Abdominal pain (Acute) Hyponatremia (Acute) Fatty liver due to alcoholism (Acute) Alcoholic hepatitis (Acute) Alcoholic cirrhosis of liver with ascites (Acute) Chronic anemia (Acute) Acute exacerbation of chronic obstructive pulmonary disease (COPD) (Acute) Acute hyponatremia (Acute) Hypomagnesemia (Acute) Abdominal ascites (Acute) Normal colonoscopy (Acute) Bile reflux gastritis (Acute) Hiatal hernia with GERD (Acute) Emphysematous bleb of lung (Acute) Diabetes (Chronic) Lymphadenopathy (Acute) Pharyngoesophageal dysphagia (Acute) Elevation of levels of liver transaminase levels (Acute) SOB (shortness of breath) on exertion (Acute) Preop cardiovascular exam (Acute) Abnormal barium swallow (Acute) Smoker (Acute) Screening for malignant neoplasm of prostate (Acute) Injury of hand (Acute) plates and screws Chronic diarrhea (Acute) Night sweats (Acute 03/2021) Degeneration of lumbosacral intervertebral disc (Acute) Cholelithiasis without obstruction (Acute) Infection of tooth (Acute) Chronic obstructive lung disease (Chronic) Laryngeal spasm (Acute) Chronic fatigue syndrome (Acute) Depressive disorder (Chronic) Hyperlipemia (Acute) Medical History Chronic post-traumatic headache Encounter for medication monitoring Esophagitis Gastritis History of esophageal reflux Surgical History Appendectomy Colonoscopy - MAC EGD - MAC Fracture, Open Treatment History of colonoscopy (~05/04/21) with bx History of esophagogastroduodenoscopy (EGD) (~05/04/21) Rotator Cuff Repair Bilateral Vasectomy Family History Father Cirrhosis of liver Diabetes Melitus Social History Smoking/Tobacco Use Status: Current every day Tobacco Type: cigarettes Years smoked: 30 Tobacco: How many years used: 30 Smoking risk assessment performed?: Yes Alcohol Intake: former Drug use: Daily 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 Pets and animals: Yes Pets and animals: dog(s) Current gender identity: male Do you feel safe at home: Yes Do you feel safe in your relationship?: Yes Exam Narrative Exam Narrative: Physical Examination General: alert, awake, cooperative, resting comfortably, no acute distress HEENT: normocephalic, atraumatic; PERRL, EOM intact, conjunctiva normal; no nasal discharge; moist mucous membranes, oral and pharyngeal mucosa normal, tolerating secretions Neck: supple, trachea midline; full ROM Chest: normal to inspection Respiratory: normal respiratory effort, speaking in full sentences, clear to auscultation, no wheezing, rales or rhonchi Cardiac: regular rate, regular rhythm, S1S2 intact, no murmurs rubs or gallops; equal pulses bilaterally GI: abdomen soft, tender abdomen without guarding or rebounding, non-distended; no palpable mass or hepatosplenomegaly Skin: no lesions, rashes or trauma appreciated Neuro: AAOx3, normal speech, moving all extremities Extremities: Warm well perfused Psych: Appropriate mood and affect
[2023-07-25 01:54] LABS: Abs Immature Grans 0.04 10^3/uL (0.0-0.06); Absolute Basophil Count 0.05 10^3/uL (0.0-0.2); Absolute Eosinophil Count 0.09 10^3/uL (0.0-0.7); Absolute Lymphocyte Count 0.98 10^3/uL (1.2-3.4); Basophils % 0.4; Eosinophils % 0.7; HCT 44.2 % (40.0-50.0); HGB 15.4 g/dL (13.5-17.5); Immature Grans % 0.3; Lymphocytes % 7.7; MCH 30.7 pg (27.0-33.0); MCHC 34.8 % (32.0-36.0); MCV 88 fL (80-95); MPV 10.4 fL (8.0-11.0); Monocytes % 1.6; Neutrophils % 89.3; Platelet Count 165 10^3/uL (130-400); RBC 5.02 10^6/uL (4.36-5.78); RDW 12.5 % (11.8-14.1); RDW-SD 40.4 fL; WBC 12.74 10^3/uL (4.4-10.8)
[2023-07-25] MEDS: Ondansetron 4 MG/2 ML VIAL IVP (01:55)
[2023-07-25] MEDS: Normal Saline 500 ML 1000 ML IV (01:55)
[2023-07-25] MEDS: Aspirin 81 MG CHEW 324 MG CH (01:55)
[2023-07-25 01:58] LABS: Absolute Neutrophil Count 11.38 10^3/uL (1.2-6.7)
[2023-07-25] MEDS: MORPHine 4 MG/ML SYR 2 MG IVP (02:00)
[2023-07-25 02:13] LABS: INR 1.2 (0.9-1.1); PTT Activated 25.1 sec (23.6-32.8); Prothrombin Time 12.1 sec (9.1-11.1)
[2023-07-25 02:20] LABS: ALT 61 U/L (16-63); AST 92 U/L (15-37); Albumin 4.2 g/dL (3.4-5.0); Alkaline Phosphatase 196 U/L (46-116); Anion Gap 14.6 mmol/L (3-11); BUN 9 mg/dL (7-18); CO2 23.4 mmol/L (21.0-32.0); Calcium 9.8 mg/dL (8.5-10.1); Chloride 94 mmol/L (98-107); Estimated GFR 87.78 (mL/min/1.73m2); Glucose 250 mg/dL (74-106); NT-proBNP 99 pg/mL (<300); Potassium 3.1 mmol/L (3.5-5.1); Sodium 132 mmol/L (136-145); Total Protein 8.2 g/dL (6.4-8.2); Troponin I < 50 ng/L (<or=60)
[2023-07-25] MEDS: Omnipaque 350 MG/ML 50 ML BTL IJ (02:23)
[2023-07-25] MEDS: Omnipaque 350 MG/ML 100 ML BTL IJ (02:23)
[2023-07-25] MEDS: Normal Saline - Diluent 50 ML VIAL IJ (02:24)
[2023-07-25] MEDS: Normal Saline Flush 10 ML SYR IVP (02:25)
[2023-07-25 03:09] LABS: Bilirubin Negative (Negative); Blood Negative (Negative); Clarity Clear (Clear); Glucose Negative (Negative); Ketones Negative (Negative); Leukocyte Esterase Negative (Negative); Nitrite Negative (Negative); pH 6.5 (5-8)
[2023-07-25 03:10] LABS: BE (Venous) -3 mmol/L (-2-3); HCO3 (Venous) 23 mmol/L (23-28); O2 Sat (Venous) 66 %; TCO2 (Venous) 21 mmol/L (24-29); pCO2 (Venous) 43 mmHg (41-51); pH (Venous) 7.34 (7.31-7.41); pO2 (Venous) 37 mmHg
--- NOTE | 2023-07-25 03:23 | DI.VRAD_ITS ---
PROCEDURE INFORMATION: Exam: CTA Chest With Contrast CTA Abdomen and Pelvis With Contrast Exam date and time: 07/25/2023 2:09 AM Age: 57 years old Clinical indication: Chest wall pain; Abdominal pain; Generalized; Additional info: Chest pain, abd pain TECHNIQUE: Imaging protocol: Computed tomographic angiography of the chest with contrast. Exam focused on the arteries. Computed tomographic angiography of the abdomen and pelvis with contrast. Exam focused on the arteries. 3D rendering (Not supervised by radiologist): MIP and/or 3D reconstructed images were created by the technologist. Contrast material: OMNI; Contrast volume: 125 ml; Contrast route: INTRAVENOUS (IV); COMPARISON: CT CHEST/ABD/PEL WO 05/23/2022 9:23 PM FINDINGS: VASCULATURE: Pulmonary arteries: Normal. No pulmonary emboli. Aorta: Atherosclerotic changes of the abdominal aorta without aneurysm or dissection. The major vessels are patent. CHEST: Lungs: Emphysema. Pleural spaces: No pleural effusion or pneumothorax. Heart: Unremarkable. No cardiomegaly. No pericardial effusion. ABDOMEN AND PELVIS: Liver: Hypoattenuating focus which is too small to characterize. Gallbladder and bile ducts: Distended gallbladder with trace pericholecystic fluid. Dilated common bile duct measuring 1 cm and mild intrahepatic biliary dilatation. There is a 2 mm density at the level of the ampulla of Vater which may represent a distal CBD stone. Pancreas: Unremarkable. No mass. No ductal dilation. Spleen: Unremarkable. No splenomegaly. Adrenal glands: Unremarkable. No mass. Kidneys and ureters: Unremarkable. No solid mass. No hydronephrosis. Stomach and bowel: Mildly distended stomach. No evidence of bowel obstruction. No mucosal thickening. Appendix: No evidence of appendicitis. Intraperitoneal space: No free fluid or free air. Urinary bladder: Unremarkable. No mass. Reproductive: Unremarkable as visualized. Lymph nodes: Unremarkable. No enlarged lymph nodes. Bones/joints: Degenerative disc disease of the lumbar spine. Limbus vertebra at L3. No acute fracture. Soft tissues: Unremarkable. IMPRESSION: Findings suspicious for acute cholecystitis and choledocholithiasis as above. Follow-up MRCP recommended. Dictated and Authenticated by: Miguel De La Paz MD. Ordering:KENA Fonseca MD
--- NOTE | 2023-07-25 04:42 | W.EDPROG ---
Date of service: 07/25/23 Time of Service: 04:43 Medical Decision Making As patient is leaving AGAINST MEDICAL ADVICE, I was able to close the loop with GI team at [facility] to let them know about his leaving, I asked that they reach out to him in the next couple of days for close follow-up. Patient was given strict return precautions. Discharge Plan Disposition Patient Disposition: Against Medical Advice Condition: Improving Discharge Details Clinical Impression: Abdominal pain Primary Care Provider: Asad El ED Provider: Raymundo Quiles Home Meds and New Rx's Prescriptions: No Action metoprolol succinate 50 mg tablet extended release 24 hr 50 mg PO DAILY Patient Comments: TAKE ONE TABLET BY MOUTH EVERY DAY Atorvastatin Calcium 10 MG tablet 10 mg PO DAILY Patient Comments: Patient states he does not take this medication. naloxone [Narcan] 4 MG spray,non-aerosol 4 mg NS PRN Qty: 2 pantoprazole 40 mg tablet,delayed release (DR/EC) See Rx Instructions .ROUTE .COMPLEX Qty: 90 3RF Dose Instruction: TAKE ONE TABLET BY MOUTH EVERY DAY Rx Instructions: TAKE ONE TABLET BY MOUTH EVERY DAY methadone 10 mg tablet 10 mg PO BID Patient Comments: TAKE ONE TABLET BY MOUTH FOUR TIMES A DAY DIRECTED. EARLIEST FILL DATE 03/19/2021. amlodipine 10 mg tablet 10 mg PO DAILY Patient Comments: TAKE ONE TABLET BY MOUTH EVERY DAY losartan 25 mg tablet 25 mg PO DAILY Hold Instructions: Until PCP follow up. Held d/t low BP Patient Comments: TAKE ONE TABLET BY MOUTH EVERY DAY hydrochlorothiazide 25 mg tablet 25 mg PO DAILY Hold Instructions: Until PCP follow up and repeat lab results available. Patient Comments: TAKE ONE TABLET BY MOUTH EVERY DAY albuterol sulfate [ProAir HFA] 90 mcg/actuation HFA aerosol inhaler 2 inh INHALATION QID PRN Patient Comments: INHALE 2 PUFFS BY MOUTH EVERY 4 HOURS NEEDED FOR 30 DAYS budesonide-formoterol [Symbicort] 160-4.5 mcg/actuation HFA aerosol inhaler 1 inh INHALATION PRN PRN (Reason: Shortness Of Breath Or Wheezing) Patient Comments: INHALE TWO PUFFS BY MOUTH TWICE A DAY folic acid 1 mg Tablet 1 mg PO QAM Qty: 0 0RF Patient Comments: Patient states he does not take this medication. spironolactone [Aldactone] 50 mg tablet 50 mg PO BID Qty: 30 0RF Patient Comments: Patient states he does not take this medication. thiamine mononitrate (vit B1) [Vitamin B-1 (mononitrate)] 100 mg Tablet 100 mg PO QAM Qty: 0 0RF Patient Comments: Patient states he does not take this medication. magnesium 200 mg tablet 400 mg PO DAILY Qty: 60 0RF Patient Comments: Patient states he does not take this medication. Discharge Instructions Instructions: Abdominal Pain (ED)
== END 2023-07-25 04:58 | disposition left against medical advice (07) ==
PROVIDERS: Emergency Provider Emergency Medicine; PCP Family Medicine
DX: K70.30 Alcoholic cirrhosis of liver without ascites (principal); R10.9 Unspecified abdominal pain; R07.9 Chest pain, unspecified; R94.31 Abnormal electrocardiogram [ECG] [EKG]; E11.9 Type 2 diabetes mellitus without complications; J44.9 Chronic obstructive pulmonary disease, unspecified; Z79.84 Long term (current) use of oral hypoglycemic drugs; Z87.891 Personal history of nicotine dependence
CPT/HCPCS: 123; 36415; 71275; 80053; 82805; 93005; 96374; 96375; 99285; 00123; 74174; 81003; 83880; 84484; 85025; 85610; 85730; 93010; 99284; J2270; J2405; J3490; Q9967

== ENCOUNTER 2023-07-25 18:25 | Emergency (ER) | payer MEDICAID, SELFPAY ==
[2023-07-25] VITALS (21 sets, daily range): BP systolic 99–124; BP diastolic 52–72; PULSE 77–90; RESP 9–30; TEMP 37.7; O2SAT 96
--- NOTE | 2023-07-25 18:30 | RT.EKG_ITS ---
APPROVED REPORT Exam: Resting ECG Reason for Exam: SOB Patient Location: E HR:82 bpm ECG Measurements Heart Rate 82 AXIS MO 228 P 46 QRSd 87 QRS 54 QT 364 T 37 QTc 424 Conclusion Sinus rhythm...normal P axis, V-rate 60- 99 Prolonged MO interval...MO >210, V-rate 50- 90 Physician: no stemi
[2023-07-25 19:01] LABS: Abs Immature Grans 0.04 10^3/uL (0.0-0.06); Absolute Eosinophil Count 0.04 10^3/uL (0.0-0.7); Absolute Neutrophil Count 11.65 10^3/uL (1.2-6.7); Basophils % 0.2; Eosinophils % 0.3; HCT 38.5 % (40.0-50.0); HGB 13.7 g/dL (13.5-17.5); Immature Grans % 0.3; Lymphocytes % 6.7; MCHC 35.6 % (32.0-36.0); MCV 87 fL (80-95); MPV 10.1 fL (8.0-11.0); Monocytes % 3.4; Neutrophils % 89.1; Platelet Count 132 10^3/uL (130-400); RBC 4.42 10^6/uL (4.36-5.78); RDW 12.6 % (11.8-14.1); RDW-SD 40.4 fL; WBC 13.07 10^3/uL (4.4-10.8)
[2023-07-25 19:02] LABS: Absolute Basophil Count 0.03 10^3/uL (0.0-0.2); Absolute Lymphocyte Count 0.88 10^3/uL (1.2-3.4); Absolute Monocyte Count 0.44 10^3/uL (0.1-0.8)
[2023-07-25 19:12] LABS: Lactate 1.8 mmol/L (0.6-1.4)
[2023-07-25] MEDS: fentaNYL 100 MCG/2 ML VIAL 50 MCG IVP (19:13)
[2023-07-25] MEDS: Lactated Ringers 1,000 ML 1000 ML IV ×2 (19:13→21:04)
[2023-07-25] MEDS: Ondansetron 4 MG/2 ML VIAL IVP (19:14)
[2023-07-25 19:16] LABS: ALT 79 U/L (16-63); AST 68 U/L (15-37); Albumin 3.8 g/dL (3.4-5.0); Alkaline Phosphatase 173 U/L (46-116); Anion Gap 11.8 mmol/L (3-11); BUN 8 mg/dL (7-18); Bilirubin, Total 5.7 mg/dL (0.2-1.0); CO2 23.2 mmol/L (21.0-32.0); Calcium 9.3 mg/dL (8.5-10.1); Chloride 93 mmol/L (98-107); Estimated GFR 87.78 (mL/min/1.73m2); Glucose 198 mg/dL (74-106); Lipase 30 U/L (16-77); Potassium 3.4 mmol/L (3.5-5.1); Sodium 128 mmol/L (136-145); Total Protein 7.5 g/dL (6.4-8.2)
[2023-07-25 19:30] LABS: Magnesium 1.8 mg/dL (1.8-2.4)
[2023-07-25] MEDS: PIPERACILLIN/TAZO 3.375 GM in Normal Saline 50 ML IVPB (19:55)
[2023-07-25] MEDS: Nicotine 21 MG/24 HR PATCH TD (19:56)
[2023-07-25 20:00] LABS: Procalcitonin 28.4 ng/mL
--- NOTE | 2023-07-25 21:02 | W.ED.GENAD ---
Discharge Plan Disposition Patient Disposition: Transfer-Acute Inpatient Care Specific Acute Inpt Facility: [facility] Discharge Details Clinical Impression: Alcoholic cirrhosis of liver with ascites, Sepsis, Choledocholithiasis with acute cholecystitis with obstruction Primary Care Provider: Asad El ED Provider: Laila Hernández Home Meds and New Rx's Prescriptions: No Action metoprolol succinate 50 mg tablet extended release 24 hr 50 mg PO DAILY Patient Comments: TAKE ONE TABLET BY MOUTH EVERY DAY Atorvastatin Calcium 10 MG tablet 10 mg PO DAILY Patient Comments: Patient states he does not take this medication. naloxone [Narcan] 4 MG spray,non-aerosol 4 mg NS PRN Qty: 2 pantoprazole 40 mg tablet,delayed release (DR/EC) See Rx Instructions .ROUTE .COMPLEX Qty: 90 3RF Dose Instruction: TAKE ONE TABLET BY MOUTH EVERY DAY Rx Instructions: TAKE ONE TABLET BY MOUTH EVERY DAY amlodipine 10 mg tablet 10 mg PO DAILY Patient Comments: TAKE ONE TABLET BY MOUTH EVERY DAY losartan 25 mg tablet 25 mg PO DAILY Hold Instructions: Until PCP follow up. Held d/t low BP Patient Comments: TAKE ONE TABLET BY MOUTH EVERY DAY hydrochlorothiazide 25 mg tablet 25 mg PO DAILY Hold Instructions: Until PCP follow up and repeat lab results available. Patient Comments: TAKE ONE TABLET BY MOUTH EVERY DAY albuterol sulfate [ProAir HFA] 90 mcg/actuation HFA aerosol inhaler 2 inh INHALATION QID PRN Patient Comments: INHALE 2 PUFFS BY MOUTH EVERY 4 HOURS NEEDED FOR 30 DAYS budesonide-formoterol [Symbicort] 160-4.5 mcg/actuation HFA aerosol inhaler 1 inh INHALATION PRN PRN (Reason: Shortness Of Breath Or Wheezing) Patient Comments: INHALE TWO PUFFS BY MOUTH TWICE A DAY folic acid 1 mg Tablet 1 mg PO QAM Qty: 0 0RF Patient Comments: Patient states he does not take this medication. spironolactone [Aldactone] 50 mg tablet 50 mg PO BID Qty: 30 0RF Patient Comments: Patient states he does not take this medication. thiamine mononitrate (vit B1) [Vitamin B-1 (mononitrate)] 100 mg Tablet 100 mg PO QAM Qty: 0 0RF Patient Comments: Patient states he does not take this medication. magnesium 200 mg tablet 400 mg PO DAILY Qty: 60 0RF Patient Comments: Patient states he does not take this medication. Discharge Data Discharge Date/Time-TO BE ENTERED AT DEPARTURE: 07/25/23 23:14 Medical Decision Making 57-year-old gentleman presenting with acutely worsening abdominal pain in the presence of biliary obstruction/cholangitis versus choledocholithiasis/cholecystitis Temperature of 100.3 orally, leukocytosis 13,000, lactate of 1.8, AST and ALT elevated at 68 and 79 respectively for AST and ALT, bilirubin of 5.7 with icterus, procalcitonin of 28, EKG does not show evidence of acute abnormality per my attending interpretation my review Patient is tender in the left upper quadrant, he has jaundice and icterus, he does not have rebound or guarding, no CVA tenderness, distal pulses intact, alert and oriented x4, no visible sign of trauma, distal pulses Patient had CTA chest abdomen pelvis ordered by ED physician evaluating the patient yesterday, there is evidence of possible Cintia toco lithiasis with biliary ductal dilatation 14 mm and cholecystitis on CT scan Alert, oriented, pleasant in demeanor, appears chronically ill, gap of 11.8, glucose of 190 alk phos of 173, lipase within normal limits During his encounter he received 2 L of first NS followed by LR, 3.375 of IV Zosyn, 100 mcg of fentanyl He is remained hemodynamically stable throughout this encounter, PT/INR pending, CIWA pending Case was discussed with [facility], Dr. Hill, GI fellow, he would like to accept this patient, however they are at capacity and unable to accept the patient this evening [facility] was subsequently consulted, I spoke with GI, Dr. Wiggins who would like the patient be transferred on emergent basis for likely surgical intervention/ERCP I spoke with Dr. Moraes, ED physician who is excepted the patient, we are arranging transportation the patient likely leave from this facility at 11, he has remained hemodynamically stable, alert, oriented throughout this encounter Of note, INR returned and patient does have an INR of 1.5 HPI General Date/Time Provider Initiated Documentation: 07/25/23 18:27. HPI Narrative: This 57-year-old gentleman with history of alcoholic hepatitis, cirrhosis, COPD, hyponatremia, ascites diabetes who presents with report of worsening abdominal pain, shaking chills, nausea, vomiting, eye discoloration who was evaluated in this emergency department early yesterday morning now and left AMA. Patient tells me he was diagnosed with cholecystitis and the plan was to send him to [facility] last evening, however they did not have beds which is why he left. Present really presenting secondary to worsening symptoms. History of alcoholism, has not had a drink in approximately 1 year per patient. Denies any blood in vomitus, denies any abnormal colored stools. Denies any known sick contacts or exotic travel. Denies any known history of coagulopathy per patient. Related Data Home Medications Medication Instructions Recorded Confirmed Atorvastatin Calcium 10 mg PO DAILY 02/12/18 07/25/23 naloxone 4 mg/actuation nasal 4 mg NS PRN #2 sprays 02/12/18 07/25/23 spray (Narcan) albuterol sulfate 90 mcg/actuation 2 inh inhalation QID PRN 04/04/21 07/25/23 aerosol inhaler (ProAir HFA) amlodipine 10 mg tablet 10 mg PO DAILY 04/04/21 07/25/23 hydrochlorothiazide 25 mg tablet 25 mg PO DAILY 04/04/21 07/25/23 losartan 25 mg tablet 25 mg PO DAILY 04/04/21 07/25/23 metoprolol succinate 50 mg 50 mg PO DAILY 04/23/21 07/25/23 tablet,extended release 24 hr budesonide-formoterol HFA 160 1 inh inhalation PRN PRN Shortness 05/06/22 07/25/23 mcg-4.5 mcg/actuation aerosol Of Breath Or Wheezing inhaler (Symbicort) folic acid 1 mg tablet 1 mg PO QAM #0 tabs 06/16/22 07/25/23 magnesium 200 mg tablet 400 mg (2 x 200 mg) PO DAILY #60 06/16/22 07/25/23 tabs spironolactone 50 mg tablet 50 mg PO BID #30 tabs 06/16/22 07/25/23 (Aldactone) thiamine mononitrate (vit B1) 100 100 mg PO QAM #0 tabs 06/16/22 07/25/23 mg tablet (Vitamin B-1 (mononitrate)) pantoprazole 40 mg tablet,delayed See Rx Instructions .Route 07/31/22 07/25/23 release .COMPLEX #90 tabs Previous Rx's Medication Instructions Recorded folic acid 1 mg tablet 1 mg PO QAM #0 tabs 06/16/22 magnesium 200 mg tablet 400 mg (2 x 200 mg) PO DAILY #60 06/16/22 tabs spironolactone 50 mg tablet 50 mg PO BID #30 tabs 06/16/22 (Aldactone) thiamine mononitrate (vit B1) 100 100 mg PO QAM #0 tabs 06/16/22 mg tablet (Vitamin B-1 (mononitrate)) pantoprazole 40 mg tablet,delayed See Rx Instructions .Route 07/31/22 release .COMPLEX #90 tabs Allergies Allergy/AdvReac Type Severity Reaction Status Date / Time lisinopril AdvReac Severe Swelling/Ed Verified 07/25/23 20:23 jessica metformin AdvReac Diarrhea Verified 07/25/23 20:23 General Stated Complaint: Abd Prob PEDRITO: 3 PFSH All Active Problems (Updated 07/25/23 @ 22:37 by RAYMUNDO Linares) Choledocholithiasis with acute cholecystitis with obstruction (Acute) Sepsis (Acute) Abdominal pain (Acute) Abdominal pain (Acute) Hyponatremia (Acute) Fatty liver due to alcoholism (Acute) Alcoholic hepatitis (Acute) Alcoholic cirrhosis of liver with ascites (Acute) Chronic anemia (Acute) Acute exacerbation of chronic obstructive pulmonary disease (COPD) (Acute) Acute hyponatremia (Acute) Hypomagnesemia (Acute) Abdominal ascites (Acute) Normal colonoscopy (Acute) Bile reflux gastritis (Acute) Hiatal hernia with GERD (Acute) Emphysematous bleb of lung (Acute) Diabetes (Chronic) Lymphadenopathy (Acute) Pharyngoesophageal dysphagia (Acute) Elevation of levels of liver transaminase levels (Acute) SOB (shortness of breath) on exertion (Acute) Preop cardiovascular exam (Acute) Abnormal barium swallow (Acute) Smoker (Acute) Screening for malignant neoplasm of prostate (Acute) Injury of hand (Acute) plates and screws Chronic diarrhea (Acute) Night sweats (Acute 03/2021) Degeneration of lumbosacral intervertebral disc (Acute) Cholelithiasis without obstruction (Acute) Infection of tooth (Acute) Chronic obstructive lung disease (Chronic) Laryngeal spasm (Acute) Chronic fatigue syndrome (Acute) Depressive disorder (Chronic) Hyperlipemia (Acute) Medical History Chronic post-traumatic headache Encounter for medication monitoring Esophagitis Gastritis History of esophageal reflux Surgical History Appendectomy Colonoscopy - MAC EGD - MAC Fracture, Open Treatment History of colonoscopy (~05/04/21) with bx History of esophagogastroduodenoscopy (EGD) (~05/04/21) Rotator Cuff Repair Bilateral Vasectomy Family History Father Cirrhosis of liver Diabetes Melitus Social History Smoking/Tobacco Use Status: Current every day Tobacco Type: cigarettes Years smoked: 30 Tobacco: How many years used: 30 Smoking risk assessment performed?: Yes Alcohol Intake: former Drug use: Daily Substance use type: marijuana Housing: house Pets and animals: Yes Pets and animals: dog(s) Current gender identity: male Do you feel safe at home: Yes Do you feel safe in your relationship?: Yes Course Vital Signs Vital signs: Vital Signs Temperature 37.7 C H 07/25/23 18:27 Pulse 82 07/25/23 18:27 Respiratory Rate 20 07/25/23 18:27 Blood Pressure 102/60 07/25/23 18:27 Pulse Oximetry 96 07/25/23 18:27 Temperature 37.7 C H 07/25/23 18:34 Temperature Source Oral 07/25/23 18:34 Pulse 82 07/25/23 18:34 Respiratory Rate 20 07/25/23 18:34 Respiratory Effort Short of Breath 07/25/23 18:34 Blood Pressure 102/60 07/25/23 18:34 Blood Pressure Position Sitting 07/25/23 18:34 Pulse Oximetry 96 07/25/23 18:34 Oxygen Delivery Method Room Air 07/25/23 18:34 Oxygen Flow Rate 0 07/25/23 18:34 Pain Level 8 07/25/23 18:34 Lab/Test Results Lab/Test Results: 07/25/23 19:12 Blood Blood Culture - Pending 07/25/23 19:06 Blood Blood Culture - Pending Laboratory Tests Range/Units 07/25/23 07/25/23 18:50 19:06 WBC (4.4-10.8) 10^3/uL 13.07 H RBC (4.36-5.78) 10^6/uL 4.42 Hgb (13.5-17.5) g/dL 13.7 Hct (40.0-50.0) % 38.5 L MCV (80-95) fL 87 MCH (27.0-33.0) pg 31.0 MCHC (32.0-36.0) % 35.6 RDW (11.8-14.1) % 12.6 Plt Count (130-400) 10^3/uL 132 MPV (8.0-11.0) fL 10.1 Immature Gran % 0.3 Neutrophils % 89.1 Lymphocytes % 6.7 Monocytes % 3.4 Eosinophils % 0.3 Basophils % 0.2 Nucleated RBC % (0.0-0.3) % 0.0 Absolute Neutrophils (1.2-6.7) 10^3/uL 11.65 H Absolute Lymphocytes (1.2-3.4) 10^3/uL 0.88 L Absolute Monocytes (0.1-0.8) 10^3/uL 0.44 Absolute Eosinophils (0.0-0.7) 10^3/uL 0.04 Absolute Basophils (0.0-0.2) 10^3/uL 0.03 VBG Lactate (0.6-1.4) mmol/L 1.8 H Sodium (136-145) mmol/L 128 L Potassium (3.5-5.1) mmol/L 3.4 L Chloride (98-107) mmol/L 93 L Carbon Dioxide (21.0-32.0) mmol/L 23.2 Anion Gap (3-11) mmol/L 11.8 H BUN (7-18) mg/dL 8 Creatinine (0.70-1.30) mg/dL 1.0 Est GFR (CKD-EPI 2020) (mL/min/1.73m2) 87.78 Glucose (74-106) mg/dL 198 H Calcium (8.5-10.1) mg/dL 9.3 Magnesium (1.8-2.4) mg/dL 1.8 Total Bilirubin (0.2-1.0) mg/dL 5.7 H AST (15-37) U/L 68 H ALT (16-63) U/L 79 H Alkaline Phosphatase (46-116) U/L 173 H Total Protein (6.4-8.2) g/dL 7.5 Albumin (3.4-5.0) g/dL 3.8 Lipase (16-77) U/L 30 Procalcitonin ng/mL 28.4 Critical Care Time Critical Care Time Attestation: Approximately 45 minutes of critical care secondary to sepsis, biliary obstruction, tertiary care consultation and transfer, CT imaging interpretation and review, diagnostic lab interpretation and review, IV antibiotic administration, IV fluid administration, continuous telemetry monitoring
[2023-07-25] MEDS: Potassium Chloride 20 MEQ TABCR PO (21:08)
[2023-07-25 21:19] LABS: INR 1.5 (0.9-1.1); Prothrombin Time 14.7 sec (9.1-11.1)
[2023-07-25 21:31] LABS: COVID-19 PCR Negative (Negative); Influenza A PCR Negative (Negative); Influenza B PCR Negative (Negative); RSV PCR Negative (Negative); Source NASOPHARYNX
[2023-07-25] MEDS: Lactated Ringers 1,000 ML 200 ML IV (22:27)
--- NOTE | 2023-07-26 02:52 | NUR.NOTE ---
At 2316 this junior technical writer assumed care of patient along with [facility] for transfer to [facility]. Patient axo x 3, vss and able to make his own decisions no medical interventions during the duration of transport. Patient's vital signs were monitored every 15 mins and remains within normal limits for the patient. LR ran at 200 ml/hr, IV sites remained patented and no s/s of infiltration was noted. No complaints were offered and plan of care was continued until transfer of care at [facility]. Arrival time was 0055. Report was given to Ingrid Rivers RN in the ED at the bedside at 0104
--- NOTE | 2023-07-26 09:03 | NUR.NOTE ---
Accessed Patients chart to locate patient after discharge. Pt was transferred to [facility] so I faxed the critical values to [facility]. Critical Values are Positive Gram Negative Rods in the Aerobic bottle- 1 bottle so far.
== END 2023-07-25 23:14 | disposition short-term general hospital (02) ==
PROVIDERS: Emergency Provider Physician Assistant; PCP Family Medicine
DX: K80.43 Calculus of bile duct with acute cholecystitis with obstruction (principal); K70.31 Alcoholic cirrhosis of liver with ascites; A41.9 Sepsis, unspecified organism; Z53.29 Procedure and treatment not carried out because of patient's decision for other reasons
CPT/HCPCS: 80053; 83690; 84145; 87040; 87077; 87637; 93005; 96361; 96365; 96375; 99285; 83605; 83735; 85025; 85610; 87186; 93010; J2405; J2543; J3010

== ENCOUNTER → 2023-11-11 03:50 | Outpatient (CLI) | payer MEDICAID, SELFPAY ==
--- NOTE | 2023-11-11 | DI.MRI_ITS ---
Exam(s) MR ABDOMEN WO/W EXAM: MR ABDOMEN WO/W CLINICAL HISTORY: ALCOHOLIC CIRRHOSIS OF LIVER WO ASCITES,K70.30,BILAT UPPER PAIN,H/O ERCP TECHNIQUE: Multiplanar multisequence MRI was performed with both pre and post contrast infused seque nces. Contrast injected sequences were performed following IV injection of 16 cc of Dotarem. MRCP was also performed. COMPARISON: CT CT ABDOMEN PELVIS W CONTRAST from 07/26/2023 FINDINGS: The MRCP images are blurred VISUALIZED LUNG BASES: No pleural effusions evident. There is no ascites evident. LIVER: Mild hepatomegaly. Mild cirrhotic appearance. There are few small nonenhancing cysts in the liver measuring up to 1 cm size. No ominous focal hepatic lesions identified. BILIARY: No obvious acute gallbladder pathology. Gallbladder is not distended nor edematous and ther e are no obvious intraluminal calculi evident. The cystic duct is not dilated. CBD diameter is 7 mm , upper normal-minimally prominent. There is a tiny signal void in the distal CBD best evident on th e coronal T2 images. Not able to be visualized on the less than optimal blurred MRCP images.There do es not appear to be an obvious mass at the ampullary level nor within the duodenum. PANCREAS: There is no evidence of pancreatic mass nor dilatation of the pancreatic duct.No peripancre atic fluid. SPLEEN: Spleen is enlarged, with craniocaudal measurement of 15 cm.There are no splenic lesions. The splenic and portal veins are patent. Splenic vein diameter is 9 mm. No evidence of splenic nor por redd vein thrombosis. ADRENALS: There are no significant adrenal masses. KIDNEYS: No solid renal masses. Tiny benign cortical cysts noted in the left kidney not requiring fo llow-up. No hydronephrosis nor hydroureter. ABDOMINAL AORTA: Not enlarged and there is no significant para-aortic adenopathy. ANTERIOR ABDOMINAL WALL/GI: There is no evidence of significant anterior abdominal wall hernia in the field of view of this study.Is no evidence of obvious bowel obstruction. OSSEOUS: There are no lytic osseous lesions in the field of view of this study. IMPRESSION: 1. Hepatomegaly and splenomegaly. Somewhat cirrhotic appearance of the liver. A few small benign cy sts are noted in the liver. There are no ominous hepatic lesions. Intrahepatic ducts are not dilate d. 2. Pancreas is unremarkable. Pancreatic duct is not dilated. 3. With respect of the biliary tree, the MRCP images are suboptimal due to motion artifact. However, there are no obvious calculi within the nondistended and non edematous appearing gallbladder and the CBD diameter is only minimally prominent at 7 mm. On the coronal T2 images there is a subtle sugges tion of a tiny 1-2 mm calculus in the lower CBD. No other filling defects above this level in the CB D. If clinically indicated repeat MRCP can be attempted DATA REPOSITORY:
[2023-11-11] MEDS: Normal Saline - Diluent 50 ML VIAL 25 ML IJ (12:56)
[2023-11-11] MEDS: Gadoterate meglumine 20 ML VIAL 16 ML IVP (12:57)
== END ==
PROVIDERS: PCP Family Medicine; Visit Provider Internal Medicine
DX: K70.30 Alcoholic cirrhosis of liver without ascites (principal)
CPT/HCPCS: 74183

== ENCOUNTER 2024-02-06 12:43 | Outpatient (CLI) | payer MEDICAID, SELFPAY ==
[2024-02-06 10:13] LABS: Abs Immature Grans 0.02 10^3/uL (0.0-0.06); Absolute Basophil Count 0.04 10^3/uL (0.0-0.2); Absolute Lymphocyte Count 2.31 10^3/uL (1.2-3.4); Absolute Monocyte Count 0.45 10^3/uL (0.1-0.8); Absolute Neutrophil Count 5.87 10^3/uL (1.2-6.7); Basophils % 0.4 %; Eosinophils % 4.4 %; HCT 44.2 % (40.0-50.0); HGB 15.5 g/dL (13.5-17.5); Immature Grans % 0.2 %; Lymphocytes % 25.4 %; MCH 30.3 pg (27.0-33.0); MCHC 35.1 % (32.0-36.0); MCV 86 fL (80-95); MPV 10.2 fL (8.0-11.0); Neutrophils % 64.6 %; Platelet Count 161 10^3/uL (130-400); RBC 5.12 10^6/uL (4.36-5.78); RDW 11.9 % (11.8-14.1); RDW-SD 38.2 fL; WBC 9.09 10^3/uL (4.4-10.8)
[2024-02-06 10:26] LABS: Ammonia 28 umol/L (11-32)
[2024-02-06 10:29] LABS: ALT 28 U/L (16-63); AST 14 U/L (15-37); Albumin 4.2 g/dL (3.4-5.0); Alkaline Phosphatase 134 U/L (46-116); Anion Gap 12.1 mmol/L (3-11); BUN 6 mg/dL (7-18); Bilirubin, Total 0.5 mg/dL (0.2-1.0); CO2 23.9 mmol/L (21.0-32.0); Calcium 9.2 mg/dL (8.5-10.1); Chloride 98 mmol/L (98-107); Estimated GFR 87.24 (mL/min/1.73m2); Glucose 323 mg/dL (74-106); Potassium 4.3 mmol/L (3.5-5.1); Sodium 134 mmol/L (136-145)
[2024-02-06 10:31] LABS: INR 1.1 (0.9-1.1)
[2024-02-10 07:24] LABS: PEth 16:0/18:1(POPEth) <10 ng/mL (Cutoff: 10); PEth 16:0/18:2(PLPEth) <10 ng/mL (Cutoff: 10); PEth Interpretation Negative.
== END 2024-02-06 12:44 | disposition home or self-care (01) ==
LOC: LBO 12:43
PROVIDERS: Internal Medicine; PCP Family Medicine; Visit Provider Family Medicine
DX: K74.60 Unspecified cirrhosis of liver (principal)
CPT/HCPCS: 36415; 80053; 80321; 82140; 85025; 85610

== ENCOUNTER 2024-05-14 00:03 | Outpatient (CLI) | payer MEDICAID, SELFPAY ==
--- NOTE | 2024-05-14 | DI.US_ITS ---
Exam(s) US ABDOMEN LIMITED EXAM: US ABDOMEN LIMITED CLINICAL HISTORY: ALCOHOLIC CIRRHOSIS, UNSPEC WHETHER ASCITES PRESENT. K70.30 TECHNIQUE: Ultrasound abdomen performed using standard protocol. COMPARISON: CT CT ABDOMEN PELVIS W CONTRAST from 07/26/2023 MR MR ABDOMEN WO/W from 11/11/2023 FINDINGS: LIVER: Mildly enlarged at 18.6 cm in length. Mildly coarsened echotexture. Mildly lobulated surface . No focal liver lesions are seen. GALLBLADDER: No evidence of cholelithiasis. No evidence of wall thickening. No pericholecystic fluid identified. SEAMAN'S SIGN: Negative. BILIARY SYSTEM: No intrahepatic or extrahepatic biliary ductal dilation. Right KIDNEY: No evidence of renal calculi. No evidence of hydronephrosis. No renal mass or cyst iden tified. PANCREAS: Normal where visualized. ABDOMINAL AORTA AND IVC: Visualized portions normal caliber. ASCITES: None seen. IMPRESSION: Mild cirrhosis. No evidence of ascites. DATA REPOSITORY:
== END 2024-05-14 00:23 ==
LOC: DI 00:03
PROVIDERS: PCP Family Medicine; Visit Provider Internal Medicine
DX: K70.30 Alcoholic cirrhosis of liver without ascites (principal)
CPT/HCPCS: 76705

== ENCOUNTER 2024-05-14 00:35 | Outpatient (CLI) | payer MEDICAID, SELFPAY ==
[2024-05-14 09:42] LABS: Abs Immature Grans 0.03 10^3/uL (0.0-0.06); Absolute Basophil Count 0.03 10^3/uL (0.0-0.2); Absolute Eosinophil Count 0.21 10^3/uL (0.0-0.7); Absolute Lymphocyte Count 1.22 10^3/uL (1.2-3.4); Absolute Monocyte Count 0.34 10^3/uL (0.1-0.8); Absolute Neutrophil Count 5.95 10^3/uL (1.2-6.7); Basophils % 0.4 %; Eosinophils % 2.7 %; HCT 45.1 % (40.0-50.0); HGB 15.5 g/dL (13.5-17.5); Immature Grans % 0.4 %; Lymphocytes % 15.7 %; MCH 28.8 pg (27.0-33.0); MCHC 34.4 % (32.0-36.0); MCV 84 fL (80-95); MPV 10.5 fL (8.0-11.0); Monocytes % 4.4 %; Neutrophils % 76.4 %; Platelet Count 137 10^3/uL (130-400); RBC 5.38 10^6/uL (4.36-5.78); RDW 12.1 % (11.8-14.1); RDW-SD 36.8 fL; WBC 7.78 10^3/uL (4.4-10.8)
[2024-05-14 09:50] LABS: INR 1.1 (0.9-1.1); Prothrombin Time 10.9 sec (9.1-11.1)
[2024-05-14 10:39] LABS: ALT 19 U/L (16-63); AST 13 U/L (15-37); Alkaline Phosphatase 124 U/L (46-116); Anion Gap 10.4 mmol/L (3-11); BUN 4 mg/dL (7-18); Bilirubin, Total 0.74 mg/dL (0.2-1.0); CO2 23.6 mmol/L (21.0-32.0); CREATININE 0.9 mg/dL (0.70-1.30); Calcium 9.5 mg/dL (8.5-10.1); Chloride 97 mmol/L (98-107); Glucose 316 mg/dL (74-106); Potassium 4.2 mmol/L (3.5-5.1); Sodium 131 mmol/L (136-145); Total Protein 7.9 g/dL (6.4-8.2)
[2024-05-14 19:21] LABS: AFP Tumor Marker 3.1 ng/mL (<8.1)
== END 2024-05-14 00:36 | disposition home or self-care (01) ==
LOC: LBO 00:35
PROVIDERS: PCP Family Medicine; Visit Provider Internal Medicine
DX: E11.9 Type 2 diabetes mellitus without complications (principal); E11.65 Type 2 diabetes mellitus with hyperglycemia
CPT/HCPCS: 36415; 80053; 82105; 85025; 85610

== ENCOUNTER 2024-06-10 01:23 | Outpatient (CLI) | payer MEDICAID, SELFPAY ==
[2024-06-10] MEDS: Barium Sulfate 2% W/V-Creamy Vanilla Smoothie 450 ML BTL PO (09:21)
[2024-06-10] MEDS: Barium Sulfate 2% W/V-Berry Smoothie 450 ML BTL PO (09:22)
[2024-06-10 11:00] LABS: CREATININE 0.9 mg/dL (0.70-1.30)
[2024-06-10] MEDS: Omnipaque 350 MG/ML 100 ML BTL IJ (11:15)
[2024-06-10] MEDS: Normal Saline - Diluent 50 ML VIAL IJ (11:17)
--- NOTE | 2024-06-10 11:17 | DI.CT_ITS ---
Exam(s) CT ABDOMEN PELVIS W EXAM: CT ABDOMEN PELVIS W CLINICAL HISTORY: Worsening DM, rule out liver and pancreatic CA K74.60 CIRRHOSIS. TECHNIQUE: Imaging Protocol: Axial computed tomography images with coronal and sagittal reformatted images were created and reviewed CONTRAST MATERIAL: Intravenous: Omnipaque-350 100cc Oral: Yes. Oral contrast was also administered for bowel opacification. COMPARISON: CT CT ABDOMEN PELVIS W CONTRAST from 07/26/2023 FINDINGS: VISUALIZED LUNG BASES: No nodules nor pleural effusions evident. ABDOMEN: There is no ascites. LIVER: Liver appears mildly enlarged and somewhat cirrhotic. Small benign-appearing hypodensities in right hepatic liver again noted which appear unchanged and most probably represent small benign sub cm cysts. GALLBLADDER/BILIARY: No obvious acute gallbladder pathology. CBD diameter is upper normal. The prev iously present calculus seen in the lower CBD on the outside CT scan of July 2023 is no longer se en. PANCREAS: No evidence of pancreatic mass nor dilatation of the pancreatic duct. SPLEEN: Spleen is again noted to be enlarged, with cephalocaudal measurement of 15 cm. There are no intrasplenic lesions evident. Splenic and portal veins are patent. ADRENALS: There are no significant adrenal masses. KIDNEYS:No cysts evident. No solid renal masses. No calculi nor hydronephrosis.. Urinary bladder a ppears unremarkable. ABDOMINAL AORTA: Abdominal aorta and iliac arteries are calcified but not enlarged. LYMPH NODES:Slightly prominent lymph nodes in the retroperitoneum ower noted. Also mild periaortic a denopathy. Largest para-aortic lymph node is 1.2 cm long axis, similar to previous.. ABDOMINAL WALL: No evidence of significant anterior abdominal wall nor inguinal hernia. GI: There is no evidence of bowel obstruction, free air, nor abscess. The oral contrast has reached cecum at the time of image acquisition. There is no small bowel obstru ction. PELVIS: GI: No evidence of appendicitis.No evidence of sigmoid diverticulitis. LYMPH NODES: There is no intrapelvicAdenopathy. REPRODUCTIVE: Prostate gland size appears normal. Seminal vesicles unremarkable. URINARY BLADDER: No calculi nor obvious masses evident OSSEOUS: No fractures and no significant osseous lesions. Limbus vertebra incidentally noted anterosuperior aspect of L3. Schmorl's node invagination in the i nferior endplate of L4 evident. IMPRESSION: 1. Compared to the prior outside CT scan of 07/26/2023 the previously present calculus in the lower C BD is no longer seen and there is less dilatation of biliary tree at this time. The gallbladder does not appear edematous on today's study, as was previously present). 2. There is a splenomegaly again noted and there are multiple slightly enlarged lymph nodes in the re troperitoneum and para-aortic region. There is no adenopathy around the aortic bifurcation nor along the iliac chains. Correlation with any history of lymphoma recommended. There are slightly promine nt shoddy lymph nodes in the inguinal regions bilaterally, similar to previous. 3. Also mild hepatomegaly. No ominous focal hepatic lesions. Few small benign appendix cysts are ag ain noted and are unchanged. 4. No evidence of pancreatic mass nor peripancreatic fluid collections and the pancreatic duct is not dilated. Other findings as above. RADIATION DOSE DELIVERED: 484.84mGy.cm Total DLP DATA REPOSITORY: All CT scans at this facility are submitted to the National Radiology Data Registry (NRDR) Dose Index Registry (DIR) with the [employer] ([employer]). RADIATION OPTIMIZATION: All CT scans at this facility use at least one of these dose optimization te chniques: automated exposure control; mA and/or kV adjustment per patient size (includes targeted exa ms where dose is matched to clinical indication); or iterative reconstruction.
== END 2024-06-10 01:43 ==
LOC: DI 01:23
PROVIDERS: PCP Family Medicine; Visit Provider Family Medicine
DX: K74.60 Unspecified cirrhosis of liver (principal)
CPT/HCPCS: 74177; 82565; J3490

== ENCOUNTER 2024-07-16 10:43 | Emergency (ER) | payer MEDICAID, SELFPAY ==
[2024-07-16 10:57] VITALS: BP 115/75; PULSE 79; RESP 12; TEMP 37; O2SAT 98
[2024-07-16 11:10] VITALS: BP 115/75; PULSE 79; RESP 12; TEMP 37; O2SAT 98
--- NOTE | 2024-07-16 11:22 | W.ED.GENAD ---
Discharge Plan Disposition Patient Disposition: Home Discharge Details Clinical Impression: Left sided abdominal pain Primary Care Provider: Александр Fung ED Provider: Ángela Gayle Home Meds and New Rx's Prescriptions: Continued carvedilol 6.25 mg tablet 6.25 mg PO BID Qty: 180 3RF Rx Instructions: must administer with a meal/food methadone 10 mg tablet 10 mg PO TID MDD 30 mg Qty: 84 0RF Januvia 100 mg tablet 100 mg PO DAILY Qty: 90 0RF amlodipine 10 mg tablet 10 mg PO DAILY Qty: 90 3RF losartan 25 mg tablet 25 mg PO DAILY Qty: 90 3RF metformin 500 mg tablet extended release 24 hr 500 mg PO DAILY Qty: 90 3RF naloxone [Narcan] 4 mg/actuation spray,non-aerosol 4 mg NS PRN Qty: 2 6RF tamsulosin 0.4 mg capsule 0.4 mg PO DAILY Qty: 90 3RF esomeprazole magnesium 40 mg capsule,delayed release(DR/EC) See Rx Instructions .ROUTE .COMPLEX Qty: 90 3RF Dose Instruction: TAKE ONE CAPSULE BY MOUTH EVERY DAY Rx Instructions: TAKE ONE CAPSULE BY MOUTH EVERY DAY (DME) pen needle, diabetic [Easy Comfort Pen Conway] 33 gauge x 3/16 needle See Rx Instructions .Route Qty: 100 3RF Rx Instructions: inject insulin daily. Fill with what insurance will cover. (DME) OneTouch Verio test strips Strip See Rx Instructions .Route Qty: 100 6RF Rx Instructions: One touch verio strips. test BID. DX: E11.9 albuterol sulfate [ProAir HFA] 90 mcg/actuation HFA aerosol inhaler 2 inh INHALATION QID PRN Patient Comments: INHALE 2 PUFFS BY MOUTH EVERY 4 HOURS NEEDED FOR 30 DAYS insulin glargine [Lantus Solostar U-100 Insulin] 100 unit/mL (3 mL) insulin pen 32 unit subcut DAILY Discharge Instructions Additional Instructions: Your workup today was reassuring. I recommend that you call your primary care provider's office first thing Friday morning to schedule a follow-up appointment You received IV contrast today. Please hold your metformin for 48 hours; you may restart it on 07/09/24. Return to emergency care if you develop new chest pain, difficulty breathing, uncontrollable vomiting, change in bowel or bladder function, or if you are very worried and need to be rechecked again immediately Referrals: Александр Fung DO [Primary Care Provider] - [facility] General Date/Time Provider Initiated Documentation: 07/16/24 11:00. HPI Narrative: Meir is a 58-year-old male w/ history of who presents to the emergency department today for evaluation of left sided abdominal pain, abdominal bloating, and nausea with decreased p.o. intake. He reports the abdominal pain started in the left upper quadrant a couple of weeks ago and has since spread to the left lower quadrant where it is much more severe. He describes as a stabbing, sharp, burning pain. This is accompanied by decreased p.o. intake and nausea, no vomiting. He denies associated fever/chills, dizziness, chest pain, shortness of breath, change in bowel function. He has had normal BMs, no black/tarry stools. He does admit that he has had difficulty starting a stream of urine, says this is similar to before he started the tamsulosin. He is not a current alcohol user, has been in remission 2 years. He reports that he normally checks his blood sugar, but not in the last week because it has been so stable. He uses insulin, metformin, and Januvia- says his pancreas recently stopped making insulin. Physical exam remarkable for significant tenderness palpation to the left lower quadrant, also to left upper quadrant. Abdomen is softly distended, normoactive bowel sounds. No rigidity or guarding. Easy work of breathing, lung sounds clear bilaterally. Normal heart sounds. DDx includes but is not limited to: Pancreatitis, DKA/HHS, diverticulitis, obstruction, nephrolithiasis/pyelonephritis I independently interpreted the following tests: CBC, CMP, VBG, and UA all reassuring. CT abdomen/pelvis performed, no new changes noted, patient has unchanged hepatosplenomegaly and lymph node enlargement. Overall workup today reassuring. Unknown etiology of abdominal discomfort, recommend follow-up with PCP for further evaluation. Specialist care may be indicated such as additional diagnostics outpatient. Reviewed discharge instructions with patient, including importance of follow-up with PCP and red flags indicating need for return to emergency care. Related Data Home Medications ?Medication ?Instructions ?Recorded ?Confirmed albuterol sulfate 90 mcg/actuation 2 inh inhalation QID PRN 04/04/21 07/16/24 aerosol inhaler (ProAir HFA) amlodipine 10 mg tablet 10 mg PO DAILY #90 tabs 02/09/24 07/16/24 losartan 25 mg tablet 25 mg PO DAILY #90 tabs 02/09/24 07/16/24 metformin 500 mg tablet,extended 500 mg PO DAILY #90 tabs 02/09/24 07/16/24 release 24 hr naloxone 4 mg/actuation nasal 4 mg NS PRN Unresponsiveness #2 ea 02/09/24 07/16/24 spray (Narcan) tamsulosin 0.4 mg capsule 0.4 mg PO DAILY #90 caps 02/09/24 07/16/24 esomeprazole magnesium 40 mg See Rx Instructions .Route 04/05/24 07/16/24 capsule,delayed release .COMPLEX #90 caps carvedilol 6.25 mg tablet 6.25 mg PO BID #180 tabs 05/14/24 07/16/24 pen needle, diabetic 33 gauge x #100 ea 05/14/24 07/16/24/ (Easy Comfort Pen Conway) blood sugar diagnostic (OneTouch #100 ea 05/17/24 07/16/24 Verio test strips) sitagliptin phosphate 100 mg 100 mg PO DAILY #90 tabs 05/21/24 07/16/24 tablet (Januvia) methadone 10 mg tablet 10 mg PO TID Chronic pain #84 tabs 05/28/24 07/16/24 insulin glargine 100 unit/mL (3 32 unit subcut DAILY 07/16/24 07/16/24 mL) subcutaneous pen (Lantus Solostar U-100 Insulin) Previous Rx's ?Medication ?Instructions ?Recorded amlodipine 10 mg tablet 10 mg PO DAILY #90 tabs 02/09/24 losartan 25 mg tablet 25 mg PO DAILY #90 tabs 02/09/24 metformin 500 mg tablet,extended 500 mg PO DAILY #90 tabs 02/09/24 release 24 hr naloxone 4 mg/actuation nasal 4 mg NS PRN Unresponsiveness #2 ea 02/09/24 spray (Narcan) tamsulosin 0.4 mg capsule 0.4 mg PO DAILY #90 caps 02/09/24 esomeprazole magnesium 40 mg See Rx Instructions .Route 04/05/24 capsule,delayed release .COMPLEX #90 caps carvedilol 6.25 mg tablet 6.25 mg PO BID #180 tabs 05/14/24 pen needle, diabetic 33 gauge x #100 ea 05/14/24 3/16 (Easy Comfort Pen [place]) blood sugar diagnostic (OneTouch #100 ea 05/17/24 Verio test strips) sitagliptin phosphate 100 mg 100 mg PO DAILY #90 tabs 05/21/24 tablet (Januvia) methadone 10 mg tablet 10 mg PO TID Chronic pain #84 tabs 05/28/24 Allergies Allergy/AdvReac Type Severity Reaction Status Date / Time lisinopril AdvReac Severe Swelling/Ed Verified 05/28/24 09:40 jessica General Stated Complaint: Abd Prob PEDRITO: 3 Review of Systems Narrative: see HPI Exam Const General: cooperative, comfortable and no acute distress Nutritional Appearance: thin Orientation: alert and oriented x3 Resp Effort & Inspection: normal respiratory effort and able to speak in complete sentences Auscultation: clear to auscultation bilaterally Cardio Rate: regular rate Rhythm: regular rhythm GI Inspection: normal to inspection, no abdominal wall ecchymosis and distended Palpation: soft and tender in the LLQ and in the LUQ Percussion: normal to percussion Auscultation: normal bowel sounds Course Vital Signs Vital signs: Vital Signs Temperature 37.0 C 07/16/24 10:57 Pulse 79 07/16/24 10:57 Respiratory Rate 12 07/16/24 10:57 Blood Pressure 115/75 07/16/24 10:57 Pulse Oximetry 98 07/16/24 10:57 Temperature 37.0 C 07/16/24 11:10 Temperature Source Oral 07/16/24 11:10 Pulse 79 07/16/24 11:10 Respiratory Rate 12 07/16/24 11:10 Respiratory Effort Normal, Non-Labored 07/16/24 11:22 Blood Pressure 115/75 07/16/24 11:10 Blood Pressure Position Sitting 07/16/24 11:10 Pulse Oximetry 98 07/16/24 11:10 Oxygen Delivery Method Room Air 07/16/24 11:10 Oxygen Flow Rate 0 07/16/24 11:10 Pain Level 8 07/16/24 11:19 Medical Decision Making Imaging Data Radiologic Study: Radiologist's impression: Exam(s) CT ABDOMEN PELVIS W EXAM: CT ABDOMEN PELVIS W CLINICAL HISTORY: L sided abd pain with nausea. TECHNIQUE: Imaging Protocol: Axial computed tomography images with coronal and sagittal reformatted images were created and reviewed CONTRAST MATERIAL: Intravenous: Omnipaque-350 100cc Oral: None COMPARISON: CT CT ABDOMEN PELVIS W from 06/10/2024 FINDINGS: VISUALIZED LUNG BASES: No nodules nor pleural effusions evident. ABDOMEN: There is no ascites. LIVER: Liver again appears slightly enlarged and somewhat cirrhotic. There is a well-defined hypodensity in the right hepatic lobe measuring 1 cm which has the appearance of benign cyst. There is also a smaller round 5 mm benign cyst in the right hepatic lobe. No dilated intrahepatic ducts.. GALLBLADDER/BILIARY: No obvious acute gallbladder pathology. CBD is not dilated and there are no radiopaque calculi seen within the CBD PANCREAS: No evidence of pancreatic mass nor dilatation of the pancreatic duct. SPLEEN: Splenomegaly again noted. Craniocaudal measurement of the spleen is 15.5 cm, similar to previous. There are no splenic lesions identified. Splenic and portal veins are patent. ADRENALS: There are no significant adrenal masses. KIDNEYS:No cysts evident. No solid renal masses. No calculi nor hydronephrosis.. ABDOMINAL AORTA: Abdominal aorta is calcified but not enlarged. Common iliac arteries also calcified but not enlarged. LYMPH NODES:Multiple enlarged retroperitoneal lymph nodes are again noted. Also some periaortic adenopathy again noted. Similar to previous ABDOMINAL WALL: No evidence of significant anterior abdominal wall nor inguinal hernia. GI: There is no evidence of bowel obstruction, free air, nor abscess. PELVIS: GI: No evidence of appendicitis.No evidence of sigmoid diverticulitis. LYMPH NODES: There are slightly prominent lymph nodes in the right iliac chain. Also in the bilateral inguinal regions, unchanged. REPRODUCTIVE: Prostate not enlarged. Seminal vesicles unremarkable. URINARY BLADDER: Collapsed OSSEOUS: No fractures and no significant osseous lesions. Degenerative disc disease L4-5 again noted as is incidental limbus vertebra in the anterosuperior aspect of L3 vertebral body. IMPRESSION: 1. Hepatosplenomegaly again noted. No dilatation of the biliary tree. No ascites. 2. Multiple slightly enlarged lymph nodes again noted in the retroperitoneum and para-aortic regions. There are slightly prominent shoddy lymph nodes in both inguinal regions again noted. These findings are similar to the prior CT scan of 06/10/2024. Quality:SDPA Health Related Social Needs: Health related social needs food insecurity(Z59.41), transportation insecurity(Z59.82) Health related social needs details Noted PFSH All Active Problems (Updated 07/16/24 @ 14:12 by Ángela Mar) Left sided abdominal pain (Acute) Retroperitoneal lymphadenopathy (Acute) Esophageal varices (Acute) [facility] prescription opiate use (Acute) Tinea corporis (Acute) Gallstones (Acute) History of traumatic brain injury (Acute) Liver cirrhosis (Acute) [facility] [place] Alcoholic cirrhosis - no ascites as of July 2023 Cholangitis (Acute 07/26/23) Choledocholithiasis (Acute 07/26/23) Abdominal pain (Acute) Hyponatremia (Acute) Fatty liver due to alcoholism (Acute) Alcoholic hepatitis (Acute) Chronic anemia (Acute) Hypomagnesemia (Acute) Abdominal ascites (Acute) Normal colonoscopy (Acute) Bile reflux gastritis (Acute) Hiatal hernia with GERD (Acute) Emphysematous bleb of lung (Acute) Diabetes (Chronic) Lymphadenopathy (Acute) Pharyngoesophageal dysphagia (Acute) Elevation of levels of liver transaminase levels (Acute) SOB (shortness of breath) on exertion (Acute) Preop cardiovascular exam (Acute) Abnormal barium swallow (Acute) Smoker (Acute) Screening for malignant neoplasm of prostate (Acute) Injury of hand (Acute) plates and screws Chronic diarrhea (Acute) Night sweats (Acute 03/2021) Degeneration of lumbosacral intervertebral disc (Acute) Cholelithiasis without obstruction (Acute) Infection of tooth (Acute) Chronic obstructive lung disease (Chronic) Laryngeal spasm (Acute) Chronic fatigue syndrome (Acute) Depressive disorder (Chronic) Hyperlipemia (Acute) Medical History Chronic post-traumatic headache Encounter for medication monitoring Esophagitis Gastritis History of esophageal reflux Surgical History Appendectomy Colonoscopy - MAC EGD - MAC Fracture, Open Treatment History of colonoscopy (~05/04/21) with bx History of esophagogastroduodenoscopy (EGD) (~05/04/21) Rotator Cuff Repair Bilateral Vasectomy Family History (Updated 09/02/23 @ 15:27 by Mariana Osman) Father Cirrhosis of liver Diabetes Melitus Paternal Grandmother Heart disease Cancer Maternal Grandfather Cancer Maternal Grandmother Diabetes Social History (Updated 09/02/23 @ 15:25 by Mariana Osman) Smoking/Tobacco Use Status: Current every day Tobacco Type: cigarettes Years smoked: 30 Tobacco: How many years used: 48 Quit status: not considering quitting Smoking risk assessment performed?: Yes Alcohol Intake: former Drug use: Daily Substance use type: marijuana Adopted: No Caregiver/Support person: No Foster care: No Household members: none Housing: house Number of Children: 1 number of grandchildren: 3 Communication Needs: None Education Level: high school Do you need help understanding health information?: Rarely current occupation: Disabled [employer] (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) Pets and animals: Yes (Timber ) Pets and animals: dog(s) Sexually active: No Do you think of yourself as: straight/heterosexual Current gender identity: male What is your relationship status?: How often do you talk on the phone with friends or family?: three or more times per week How often do you get together with friends or relatives?: three or more times per week Do you belong to any clubs or organized social groups?: no Panel score (0-1 are the most socially isolated patients): 1 Consuelo/Anglican: Roman Catholic Seatbelt use: sometimes Helmet use: No Drive intox or ride w/intox commercial collections driver: No Do you feel safe at home: Yes Do you feel safe in your relationship?: Yes
[2024-07-16 11:25] LABS: Bilirubin Negative (Negative); Blood Negative (Negative); Clarity Clear (Clear); Glucose Negative (Negative); Ketones Negative (Negative); Leukocyte Esterase Negative (Negative); Nitrite Negative (Negative); Urobilinogen 0.2 mg/dL (Up to 0.2)
[2024-07-16 12:04] LABS: Abs Immature Grans 0.03 10^3/uL (0.0-0.06); Absolute Basophil Count 0.02 10^3/uL (0.0-0.2); Absolute Eosinophil Count 0.29 10^3/uL (0.0-0.7); Absolute Lymphocyte Count 1.76 10^3/uL (1.2-3.4); Absolute Monocyte Count 0.45 10^3/uL (0.1-0.8); Absolute Neutrophil Count 6.56 10^3/uL (1.2-6.7); Basophils % 0.2 %; Eosinophils % 3.2 %; HCT 44.3 % (40.0-50.0); HGB 14.9 g/dL (13.5-17.5); Immature Grans % 0.3 %; Lymphocytes % 19.3 %; MCH 28.5 pg (27.0-33.0); MCHC 33.6 % (32.0-36.0); MCV 85 fL (80-95); MPV 9.7 fL (8.0-11.0); Monocytes % 4.9 %; Neutrophils % 72.1 %; Platelet Count 144 10^3/uL (130-400); RBC 5.22 10^6/uL (4.36-5.78); RDW 13.5 % (11.8-14.1); RDW-SD 42.2 fL; WBC 9.11 10^3/uL (4.4-10.8)
[2024-07-16] MEDS: Nicotine 21 MG/24 HR PATCH TD (12:06)
[2024-07-16] MEDS: Nicotine 4 MG GUM CH (12:06)
[2024-07-16 12:17] LABS: pCO2 (Venous) 37 mmHg (41-51); pH (Venous) 7.37 (7.31-7.41); pO2 (Venous) 64 mmHg
[2024-07-16 12:18] LABS: BE (Venous) -4 mmol/L (-2-3); HCO3 (Venous) 22 mmol/L (23-28); Lactate 1.34 mmol/L (0.9-1.7); O2 Sat (Venous) 92 %; TCO2 (Venous) 23 mmol/L (24-29)
[2024-07-16 12:21] LABS: INR 1.1 (0.9-1.1); PTT Activated 30.8 sec (23.6-32.8); Prothrombin Time 10.6 sec (9.1-11.1)
[2024-07-16 12:34] LABS: ALT 18 U/L (16-63); AST 14 U/L (15-37); Albumin 3.9 g/dL (3.4-5.0); Alkaline Phosphatase 125 U/L (46-116); Anion Gap 9.7 mmol/L (3-11); BUN 4 mg/dL (7-18); Bilirubin, Total 0.41 mg/dL (0.2-1.0); CO2 24.3 mmol/L (21.0-32.0); CREATININE 0.8 mg/dL (0.70-1.30); Calcium 9.5 mg/dL (8.5-10.1); Chloride 102 mmol/L (98-107); Estimated GFR 102.58 (mL/min/1.73m2); Glucose 156 mg/dL (74-106); Lipase 17 U/L (16-77); Potassium 4.5 mmol/L (3.5-5.1); Sodium 136 mmol/L (136-145); Total Protein 8.1 g/dL (6.4-8.2)
[2024-07-16] MEDS: Omnipaque 350 MG/ML 100 ML BTL IJ (13:06)
[2024-07-16] MEDS: Normal Saline - Diluent 50 ML VIAL IJ (13:07)
--- NOTE | 2024-07-16 13:10 | DI.CT_ITS ---
Exam(s) CT ABDOMEN PELVIS W EXAM: CT ABDOMEN PELVIS W CLINICAL HISTORY: L sided abd pain with nausea. TECHNIQUE: Imaging Protocol: Axial computed tomography images with coronal and sagittal reformatted images were created and reviewed CONTRAST MATERIAL: Intravenous: Omnipaque-350 100cc Oral: None COMPARISON: CT CT ABDOMEN PELVIS W from 06/10/2024 FINDINGS: VISUALIZED LUNG BASES: No nodules nor pleural effusions evident. ABDOMEN: There is no ascites. LIVER: Liver again appears slightly enlarged and somewhat cirrhotic. There is a well-defined hypoden sity in the right hepatic lobe measuring 1 cm which has the appearance of benign cyst. There is also a smaller round 5 mm benign cyst in the right hepatic lobe. No dilated intrahepatic ducts.. GALLBLADDER/BILIARY: No obvious acute gallbladder pathology. CBD is not dilated and there are no rad iopaque calculi seen within the CBD PANCREAS: No evidence of pancreatic mass nor dilatation of the pancreatic duct. SPLEEN: Splenomegaly again noted. Craniocaudal measurement of the spleen is 15.5 cm, similar to prev ious. There are no splenic lesions identified. Splenic and portal veins are patent. ADRENALS: There are no significant adrenal masses. KIDNEYS:No cysts evident. No solid renal masses. No calculi nor hydronephrosis.. ABDOMINAL AORTA: Abdominal aorta is calcified but not enlarged. Common iliac arteries also calcified but not enlarged. LYMPH NODES:Multiple enlarged retroperitoneal lymph nodes are again noted. Also some periaortic valery opathy again noted. Similar to previous ABDOMINAL WALL: No evidence of significant anterior abdominal wall nor inguinal hernia. GI: There is no evidence of bowel obstruction, free air, nor abscess. PELVIS: GI: No evidence of appendicitis.No evidence of sigmoid diverticulitis. LYMPH NODES: There are slightly prominent lymph nodes in the right iliac chain. Also in the bilatera l inguinal regions, unchanged. REPRODUCTIVE: Prostate not enlarged. Seminal vesicles unremarkable. URINARY BLADDER: Collapsed OSSEOUS: No fractures and no significant osseous lesions. Degenerative disc disease L4-5 again noted as is incidental limbus vertebra in the anterosuperior asp ect of L3 vertebral body. IMPRESSION: 1. Hepatosplenomegaly again noted. No dilatation of the biliary tree. No ascites. 2. Multiple slightly enlarged lymph nodes again noted in the retroperitoneum and para-aortic regions. There are slightly prominent shoddy lymph nodes in both inguinal regions again noted. These findin gs are similar to the prior CT scan of 06/10/2024. Called by myself to ER provider 07/16/2024 at 2:14 p.m. RADIATION DOSE DELIVERED: 499.47mGy.cm Total DLP DATA REPOSITORY: All CT scans at this facility are submitted to the National Radiology Data Registry (NRDR) Dose Index Registry (DIR) with the [employer] (ACR). RADIATION OPTIMIZATION: All CT scans at this facility use at least one of these dose optimization te chniques: automated exposure control; mA and/or kV adjustment per patient size (includes targeted exa ms where dose is matched to clinical indication); or iterative reconstruction.
[2024-07-16 13:15] VITALS: BP 145/71; PULSE 76; RESP 14; O2SAT 95
== END 2024-07-16 14:24 | disposition home or self-care (01) ==
PROVIDERS: Emergency Provider Nurse Practitioner Family; PCP Family Medicine
DX: R10.32 Left lower quadrant pain (principal); R16.2 Hepatomegaly with splenomegaly, not elsewhere classified; E78.5 Hyperlipidemia, unspecified; F17.200 Nicotine dependence, unspecified, uncomplicated; Z79.4 Long term (current) use of insulin; Z79.84 Long term (current) use of oral hypoglycemic drugs
CPT/HCPCS: 36415; 80053; 82805; 83690; 99285; 74177; 81003; 83605; 85025; 85610; 85730; 99284; J3490

== ENCOUNTER 2024-11-10 01:31 | Outpatient (CLI) | payer MEDICAID, SELFPAY ==
--- NOTE | 2024-11-10 | DI.US_ITS ---
Exam(s) US ABDOMEN LIMITED EXAM: US ABDOMEN LIMITED CLINICAL HISTORY: Alcoholic cirrhosis, unspecified whether ascites present, K70.30; TECHNIQUE: Ultrasound abdomen performed using standard protocol. COMPARISON: US US ABDOMEN LIMITED from 05/14/[address] ABDOMEN PELVIS W from 07/16/2024 FINDINGS: PANCREAS: Normal where visualized. LIVER: There is diffuse increased echogenicity of the liver. Hepatopetal flow in the Portal Vein. Th e liver measures in 17.3 cm length. There is a small simple cyst in the liver. This is identified on the CT scan from 07/16/2024. No suspicious hepatic masses are seen. GALLBLADDER: No evidence of cholelithiasis. No evidence of wall thickening. No pericholecystic fluid identified. BILIARY SYSTEM: Common bile duct measures < 7 mm. No intrahepatic biliary ductal dilation. SEAMAN'S SIGN: Negative. RIGHT KIDNEY: Kidney is normal in size. No evidence of renal calculi. No evidence of hydronephrosis. No renal mass or cyst identified. ASCITES: None seen. IMPRESSION: 1. Hepatic steatosis. 2. No evidence of ascites. DATA REPOSITORY:
== END 2024-11-10 01:51 ==
LOC: DI 01:31
PROVIDERS: PCP Family Medicine; Visit Provider Internal Medicine
DX: K70.30 Alcoholic cirrhosis of liver without ascites (principal)
CPT/HCPCS: 76705

== ENCOUNTER 2024-11-10 02:20 | Outpatient (CLI) | payer MEDICAID, SELFPAY ==
[2024-11-10 09:53] LABS: Abs Immature Grans 0.02 10^3/uL (0.0-0.06); Absolute Basophil Count 0.02 10^3/uL (0.0-0.2); Absolute Eosinophil Count 0.29 10^3/uL (0.0-0.7); Absolute Lymphocyte Count 1.62 10^3/uL (1.2-3.4); Absolute Monocyte Count 0.31 10^3/uL (0.1-0.8); Absolute Neutrophil Count 5.84 10^3/uL (1.2-6.7); Basophils % 0.2 %; Eosinophils % 3.6 %; HCT 46.3 % (40.0-50.0); HGB 15.5 g/dL (13.5-17.5); Immature Grans % 0.2 %; MCH 29.6 pg (27.0-33.0); MCHC 33.5 % (32.0-36.0); MCV 89 fL (80-95); MPV 10.1 fL (8.0-11.0); Monocytes % 3.8 %; Neutrophils % 72.2 %; Platelet Count 155 10^3/uL (130-400); RBC 5.23 10^6/uL (4.36-5.78); RDW 12.8 % (11.8-14.1); RDW-SD 41.4 fL
[2024-11-10 10:02] LABS: INR 1.1 (0.9-1.1); Prothrombin Time 10.9 sec (9.1-11.1)
[2024-11-10 10:10] LABS: ALT 19 U/L (16-63); AST 13 U/L (15-37); Alkaline Phosphatase 115 U/L (46-116); Anion Gap 5.3 mmol/L (3-11); BUN 6 mg/dL (7-18); Bilirubin, Total 0.56 mg/dL (0.2-1.0); CO2 29.7 mmol/L (21.0-32.0); Calcium 9.5 mg/dL (8.5-10.1); Chloride 104 mmol/L (98-107); Glucose 106 mg/dL (74-106); Potassium 4.4 mmol/L (3.5-5.1); Sodium 139 mmol/L (136-145)
[2024-11-10 22:05] LABS: AFP Tumor Marker 4.1 ng/mL (<8.1)
== END 2024-11-10 02:21 | disposition home or self-care (01) ==
PROVIDERS: PCP Family Medicine; Visit Provider Internal Medicine
DX: K70.30 Alcoholic cirrhosis of liver without ascites (principal)
CPT/HCPCS: 36415; 80053; 82105; 85025; 85610

== ENCOUNTER 2024-12-01 03:35 | Outpatient (CLI) | payer MEDICAID, SELFPAY ==
--- NOTE | 2024-12-01 06:30 | DI.CT_ITS ---
Exam(s) CT ABDOMEN PELVIS WO EXAM: CT ABDOMEN PELVIS WO CLINICAL HISTORY: 6 month surveillance,RETROPERITONEAL LYMPHADENOPATHY,R59.0. TECHNIQUE: Imaging Protocol: Axial computed tomography images with coronal and sagittal reformatted images were created and reviewed. COMPARISON: CT CT ABDOMEN PELVIS W from 06/10/[address] ABDOMEN PELVIS W from 07/16/2024 FINDINGS: Lack of IV contrast does limit evaluation of the abdominal pelvic organs. ABDOMEN: Lung Bases: No acute pulmonary process is seen in the lung bases. Liver: There is a lobulated contour of the liver suspicious for hepatic cirrhosis. The liver measure s 17 cm long. There are stable hepatic cysts. Gallbladder and biliary tract: The common duct measures 9 mm. This is unchanged. No cholelithiasis is seen. Pancreas: Normal density, no abnormal calcifications or inflammatory process. Spleen: The spleen is enlarged measuring 15.3 cm. Kidneys: Normal size, contour and axis.No evidence of obstructive uropathy. No suspicious masses are present. Adrenal glands: No mass is seen. Lymph nodes: There are stable mildly prominent lymph nodes in the region of the aurelio hepatis and the retroperitoneum. The lymph nodes in the mesentery appears stable. Abdominal Aorta: Abdominal portion non-dilated. Atherosclerotic calcification is present. PELVIS: Bladder:Symmetric distention, no gross wall thickening. Bowel: No obstruction or bowel wall thickening. No evidence of appendicitis. Peritoneal cavity: No ascites, collection or mesenteric inflammatory response. No free air. Reproductive organs: Unremarkable as visualized. Bones: Within normal limits for the patient's age. Soft Tissues: Within normal limits. IMPRESSION: 1. Stable size of the lymph nodes noted in the aurelio hepatis, retroperitoneum and mesentery. 2. Lobulated contour of the liver suggesting hepatic cirrhosis. 3. Splenomegaly. RADIATION DOSE DELIVERED: 525.05mGy.cm Total DLP DATA REPOSITORY: All CT scans at this facility are submitted to the National Radiology Data Registry (NRDR) Dose Index Registry (DIR) with the [employer] (ACR). RADIATION OPTIMIZATION: All CT scans at this facility use at least one of these dose optimization te chniques: automated exposure control; mA and/or kV adjustment per patient size (includes targeted exa ms where dose is matched to clinical indication); or iterative reconstruction.
== END 2024-12-01 03:55 ==
LOC: DI 03:35
PROVIDERS: PCP Family Medicine; Visit Provider Family Medicine
DX: R59.0 Localized enlarged lymph nodes (principal); R16.1 Splenomegaly, not elsewhere classified
CPT/HCPCS: 74176

== ENCOUNTER 2025-05-13 00:24 | Outpatient (CLI) | payer MEDICAID, SELFPAY ==
[2025-05-13 09:57] LABS: Abs Immature Grans 0.02 10^3/uL (0.0-0.06); HCT 44.3 % (40.0-50.0); HGB 14.7 g/dL (13.5-17.5); Immature Grans % 0.3 %; MCH 28.8 pg (27.0-33.0); MCHC 33.2 % (32.0-36.0); MCV 87 fL (80-95); MPV 10.5 fL (8.0-11.0); Platelet Count 140 10^3/uL (130-400); RBC 5.11 10^6/uL (4.36-5.78); RDW 12.9 % (11.8-14.1); RDW-SD 40.5 fL; WBC 6.92 10^3/uL (4.4-10.8)
[2025-05-13 10:08] LABS: INR 1.0 (0.9-1.1); Prothrombin Time 10.4 sec (9.1-11.1)
[2025-05-13 11:07] LABS: ALT 16 U/L (16-63); AST 14 U/L (15-37); Albumin 4.0 g/dL (3.4-5.0); Alkaline Phosphatase 115 U/L (46-116); Anion Gap 9.8 mmol/L (3-11); BUN 4 mg/dL (7-18); Bilirubin, Total 0.4 mg/dL (0.2-1.0); CO2 28.2 mmol/L (21.0-32.0); Calcium 9.3 mg/dL (8.5-10.1); Chloride 101 mmol/L (98-107); Estimated GFR 106.14 (mL/min/1.73m2); Glucose 105 mg/dL (74-106); Potassium 4.4 mmol/L (3.5-5.1); Sodium 139 mmol/L (136-145); Total Protein 7.9 g/dL (6.4-8.2)
== END 2025-05-13 00:25 | disposition home or self-care (01) ==
LOC: LBO 00:25
PROVIDERS: PCP Family Medicine; Visit Provider Internal Medicine
DX: K70.30 Alcoholic cirrhosis of liver without ascites (principal)
CPT/HCPCS: 36415; 80053; 82105; 85025; 85610

== ENCOUNTER 2025-05-13 01:05 | Outpatient (CLI) | payer MEDICAID, SELFPAY ==
--- NOTE | 2025-05-13 | DI.US_ITS ---
Exam(s) US ABDOMEN LIMITED EXAM: US ABDOMEN LIMITED CLINICAL HISTORY: HEPATIC CIRRHOSIS, UNSPECIFIED WHETHER ASCITES PRESENT, K74.60 TECHNIQUE: Ultrasound abdomen performed using standard protocol. COMPARISON: CT CT ABDOMEN PELVIS W from 07/16/[address] ABDOMEN PELVIS WO from 12/01/2024 FINDINGS: There is no ascites evident. LIVER: Liver size appears slightly prominent. There are no ominous focal hepatic lesions. Prior CT scan revealed a small cyst which is not visualized on these ultrasound images. GALLBLADDER/BILIARY: There are no gallstones. No gallbladder wall edema nor pericholecystic fluid. The common hepatic duct isnot dilated, measuring 5mm at the level of aurelio hepatis. PANCREAS: There is a 12 x 6 x 18 mm finding in the pancreatic head-neck region. This does not exhibit internal color flow to suggest that it is a crossing vessel. There was no finding at this level on prior CT scans. The pancreatic duct is not dilated. No other focal findings in the pancreas. RIGHT KIDNEY:No evidence of solid mass, calculus, nor hydronephrosis. No cortical cysts evident. IMPRESSION: 1. There is a 1.2 x 0.6 x 1.8 cm relatively hypoechoic nodule in the pancreatic head-neck junction region. Dedicated contrast infused pancreatic protocol CT or MRI is recommended for further evaluation of this abnormal finding in the pancreas. 2. No other significant ultrasound findings in the right upper quadrant. 3. There is no ascites. DATA REPOSITORY:
== END 2025-05-13 01:25 ==
LOC: DI 01:05
PROVIDERS: PCP Family Medicine; Visit Provider Internal Medicine
DX: K74.60 Unspecified cirrhosis of liver (principal); R93.3 Abnormal findings on diagnostic imaging of other parts of digestive tract
CPT/HCPCS: 76705

== ENCOUNTER 2025-05-26 12:05 | Outpatient (CLI) | payer MEDICAID, SELFPAY ==
--- NOTE | 2025-05-26 10:53 | DI.RAD_ITS ---
Exam(s) XR ELBOW RT COMPLETE EXAM: XR ELBOW RT COMPLETE CLINICAL HISTORY: r/o fracture, avascular necrosis (low liklihood) M70.21 OLECRANON BURSITIS. TECHNIQUE: 2D digital imaging was performed. Three views. COMPARISON: No exams were available for comparison FINDINGS: BONES: No acute fracture is present. No bony destructive lesion is seen. Prominent olecranon spur. Mild spur at the coronoid process. JOINTS: The elbow is normally aligned. No joint effusion is seen. SOFT TISSUE: Nor swelling over the olecranon consistent with olecranon bursitis. IMPRESSION: Olecranon spur. Soft tissue swelling over the olecranon consistent with olecranon bursitis. DATA REPOSITORY: RADIATION DOSE DELIVERED:
== END 2025-05-26 12:25 ==
LOC: DI 12:05
PROVIDERS: PCP Family Medicine; Visit Provider Nurse Practitioner Adult Health
DX: M70.21 Olecranon bursitis, right elbow (principal)
CPT/HCPCS: 73080

== ENCOUNTER 2025-06-23 04:20 | Outpatient (CLI) | payer MEDICAID, SELFPAY ==
--- NOTE | 2025-06-23 06:37 | DI.CT_ITS ---
Exam(s) CT ABDOMEN WO/W EXAM: CT ABDOMEN WO/W CLINICAL HISTORY: New pancreatic mass seen on US,K86.89. TECHNIQUE: Imaging Protocol: Axial computed tomography images with coronal and sagittal reformatted images were created and reviewed CONTRAST MATERIAL: Intravenous: Omnipaque 350 Contrast volume:75 ml Oral: yes COMPARISON: MR MR ABDOMEN WO/W from 11/11/[address] ABDOMEN PELVIS W from 06/10/[address] ABDOMEN PELVIS WO from 12/01/2024 US US ABDOMEN LIMITED from 05/13/2025 FINDINGS: ABDOMEN: Lung Bases: No acute findings. Emphysematous changes greater posteriorly. Liver: Mildly enlarged. Nodular contour or consistent with cirrhosis. Tiny liver cyst again noted the laterally in the right lobe. No measurable mass. Gallbladder and biliary tract: No radiodense calculus. No biliary dilation. Pancreas: Normal density, no abnormal calcifications or inflammatory process. No evidence of pancreatic mass. The abnormality in question on recent are ultrasound corresponds to a small lymph node lying anterior to the pancreatic head. There other small lymph nodes in the aurelio hepatis and para-aortic region unchanged from previous exams. Findings are consistent with reactive lymph nodes, not uncommon in patients with cirrhosis. Spleen: Enlarged at 15.4 cm in length. Kidneys: Normal size, contour and axis. No radiodense stones or obstructive uropathy. No suspicious masses seen. Adrenal glands: No masses seen. Bowel: Unremarkable. Abdominal Aorta: Abdominal portion non-dilated. Lymph nodes: Within normal limits. Bones: Unremarkable for age. Soft tissues: Unremarkable. IMPRESSION: No evidence of pancreatic mass. The findings on ultrasound are consistent with a mildly enlarged lymph node, which appears unchanged from prior exams. RADIATION DOSE DELIVERED: Total DLP DATA REPOSITORY: All CT scans at this facility are submitted to the National Radiology Data Registry (NRDR) Dose Index Registry (DIR) with the [employer] ([employer]). RADIATION OPTIMIZATION: All CT scans at this facility use at least one of these dose optimization techniques: automated exposure control; mA and/or kV adjustment per patient size (includes targeted exams where dose is matched to clinical indication); or iterative reconstruction.
[2025-06-23] MEDS: Barium Sulfate 2% W/V-Berry Smoothie 450 ML BTL PO (08:15)
[2025-06-23 08:55] LABS: Estimated GFR 106.14 (mL/min/1.73m2)
[2025-06-23] MEDS: Normal Saline Flush 10 ML SYR IVP (09:35)
[2025-06-23] MEDS: Normal Saline - Diluent 50 ML VIAL IJ (09:35)
[2025-06-23] MEDS: Omnipaque 350 MG/ML 500 ML BTL-Imaging package IJ (09:38)
== END 2025-06-23 04:40 ==
LOC: DI 04:21
PROVIDERS: PCP Family Medicine; Visit Provider Family Medicine
DX: K86.89 Other specified diseases of pancreas (principal); R59.0 Localized enlarged lymph nodes
CPT/HCPCS: 74170; 82565